=== PATIENT | female | born 1930 | race Caucasian/White ===

== ENCOUNTER 2016-04-12 12:02 | Observation (INO) | payer OTHER ==
[2016-04-12 12:08] VITALS: BMI 28.3
[2016-04-12] MEDS ORDERED: MAG HYDROX/AL HYDROX/SIMETH 355 ML ORAL.SUSP PO ONE (12:34)
--- NOTE | 2016-04-12 12:34 | PDOC ---
History of Present Illness - General Chief Complaint: Pain Stated Complaint: CHEST PAIN, COUGH Time Seen by Provider: 04/12/16 12:18 History Source: Patient Exam Limitations: Language Barrier (japanese) - History of Present Illness Initial Comments: 04/12/16 12:44 history taken in japanese with assistance of family member who is paddy 85y F hx of 'leaky valve, presents with cough x 2 days associated with nasal congestion, as well as pain in her chest when she coughs that is burning. Pt endorses mild sob. The pt states she feels congested, but cough is mostly dry but has occsaional whitihs sputum. there is no hemoptysis, leg pain (has limited leg swelling which is chronic), cp on exertion. Pt also endorses a mild right sided headache when she coughs. No fever/chills. No recent travel, or known sick contacts Past History - Past Medical History Allergies/Adverse Reactions: Allergies Allergy/AdvReac Type Severity Reaction Status Date / Time No Known Allergies Allergy Verified 04/12/16 12:08 Home Medications: Ambulatory Orders Aspirin 81 mg PO DAILY #0 tab.chew 07/21/13 Cetirizine HCl [Zyrtec -] 10 mg PO DAILY 07/14/14 Furosemide 20 mg PO DAILY 11/07/14 Polyethylene Glycol [Polyox Wsr-301] 1 gm MC DAILY 12/29/14 Buspirone HCl [Buspar -] 5 mg PO BID 02/27/16 Cholecalciferol (Vitamin D3) [Vitamin D3] 5,000 unit PO WEEKLY 02/27/16 Midodrine HCl 7.5 mg PO TID 02/27/16 Ranitidine HCl [Zantac] 150 mg PO DAILY 02/27/16 Oseltamivir Phosphate [Tamiflu -] 75 mg PO BID #10 capsule 04/12/16 Anemia: No Asthma: No Cancer: No Cardiac Disorders: Yes (leaking valve) CVA: No COPD: No CHF: No Dementia: No Diabetes: No GI Disorders: Yes (DIVERTICULITIS) Disorders: No HTN: No Hypercholesterolemia: No Liver Disease: No Suicide Attempt (Hx): No Seizures: No Thyroid Disease: No - Surgical History Abdominal Surgery: Yes Appendectomy: No Cardiac Surgery: No Cholecystectomy: No Lung Surgery: No Neurologic Surgery: No Orthopedic Surgery: No - Immunization History Td Vaccination: Yes TDAP Vaccination: Yes Immunization Up to Date: Yes - Psycho/Social/Smoking Cessation Hx Anxiety: No Suicidal Ideation: No Smoking Status: No Smoking History: Never smoked Have you smoked in the past 12 months: No Number of Cigarettes Smoked Daily: 0 Information on smoking cessation initiated: No Hx Alcohol Use: No Drug/Substance Use Hx: No Substance Use Type: None Hx Substance Use Treatment: No Review of Systems - Review of Systems Able to Perform ROS?: Yes Comments:: 04/12/16 12:49 Constitutional - no reported Fever, Chills, weakness, HEENT: no reported vision changes, sore throat Respiratory: + cough, sob, no reported hemoptysis Cardiac: +chest pain no reported , palpitations, light headedness, leg swelling Abd/GI: no reported abd pain, nausea, vomiting, blood per rectum, melena, diarrhea : no reported dysuria, frequency, discharge Musculskelatal - no reported back pain, joint swelling skin - no reported bruising, erythema, rash neurological: no reported headache, numbness, focal weakness, tingling, ataxia, weakness hematologic: no reported anemia, easy bruising, easy bleeding *Physical Exam - Vital Signs Last Vital Signs Temp Pulse Resp BP Pulse Ox 98.4 F 83 18 139/68 96 04/12/16 12:04 04/12/16 12:04 04/12/16 12:04 04/12/16 12:04 04/12/16 12:04 - Physical Exam Comments: 04/12/16 12:50 GENERAL: The patient is awake, alert, and fully oriented, Nontoxic - in no acute distress. HEAD: Normocephalic, atraumatic. EYES: extraocular movements intact, sclera anicteric, conjunctiva clear. ENT: Normal voice, Moist mucous membranes. NECK: Normal range of motion, supple LUNGS: Breath sounds equal, clear to auscultation bilaterally. No wheezes, no rhonchi, no rales. HEART: Regular rate and rhythm, normal S1 and S2 without murmur, rub or gallop. ABDOMEN: Soft, nontender, normoactive bowel sounds. No guarding, no rebound. No CVA tenderness EXTREMITIES: +1 pitting edema b/l in lower sihns, no calf tenderness. NEUROLOGICAL: No facial assymetry, Normal speech, PSYCH: Normal mood, normal affect. SKIN: Warm, Dry, normal turgor, Heart Score/ECG Review - ECG Impressions Comment:: 04/12/16 13:33 Twelve-lead EKG was performed and reviewed by me. There is normal sinus rhythm with a normal rate. Rate of 84 PACs present The axis is normal. The intervals are normal. There artifacts present Nonspecific T-wave inversion in lead 3 ED Treatment Course - LABORATORY CBC & Chemistry Diagram: 04/12/16 12:45 04/12/16 12:45 - RADIOLOGY Radiology Studies Ordered: Category Date Time Status CHEST PA & LAT [RAD] Stat Radiology 04/12/16 12:33 Ordered Medical Decision Making - Medical Decision Making 04/12/16 12:51 Suspect possible influenza versus viral syndrome Will obtain chest x-ray, influenza, blood work Also consider possible heart failure as the patient does have a history of valve problems 04/12/16 14:32 The patient's blood work was reviewed there is mild leukopenia. The patient's chest x-ray does not really feel anything acute Influenza positive We'll discharge the patient with a course of Tamiflu. We'll have the patient follow up with her primary care doctor. 04/12/16 14:[address] whyte would prefer to keep the pt in the hospital for observtion stable for med surg Case discussed in detail with admitting physician including history, physical exam and ancillary studies. Admitting physician has assumed care for the patient, will follow all pending diagnostics and will complete the evaluation and treatment. *DC/Admit/Observation/Transfer Diagnosis at time of Disposition: Influenza A - Discharge Dispostion Condition at time of disposition: Stable Admit: Yes - Prescriptions Prescriptions: Oseltamivir Phosphate [Tamiflu -] 75 mg PO BID #10 capsule - Referrals Referrals: Maryjane Whyte MD [Primary Care Provider] - - Patient Instructions Printed Discharge Instructions: DI for Influenza -- Adult Additional Instructions: Vuelva al departamento de emergencia inmediatamente con CUALQUIER nuevo, persistente o empeorando los sntomas incluyendo cualquier dificultad para respirar, fiebres altas, dolor a la hora de acostarse o cualquier otra preocupacin. [place] el Tamiflu segn las indicaciones. Noam Tylenol o Motrin por cualquier fiebre o jayson corporales. Usted DEBE llamar y seguir con harrell doctor maana para la evaluacin adicional de jagruti sntomas. Los resultados fueron discutidos con usted. Por favor, asegrese de que harrell mdico revise los resultados de harrell evaluacin de emergencia. Return to the emergency department immediately with ANY new, persistent or worsening symptoms including any difficulty breathing, high fevers, pain in at bedtime or any other concerns. Take the Tamiflu as directed. Take Tylenol or Motrin for any fever or body aches. You MUST call and follow up with your doctor tomorrow for further evaluation of your symptoms. Results were discussed with you. Please make sure your doctor reviews the results of your emergency evaluation. Print Language: GREEN[place]IC
[2016-04-12] MEDS ORDERED: ACETAMINOPHEN 325 MG TABLET (FP) PO ONE (12:48)
[2016-04-12] MEDS ORDERED: MAG HYDROX/AL HYDROX/SIMETH 30 ML UNIT-DOSE CUP ONE (12:51)
[2016-04-12 13:12] LABS: BASOPHIL 0.5 % (0-2.0); EOSINOPHIL 0.4 % (0-4.5); MCH 31.9 pg (25.7-33.7); MCHC 33.8 g/dl (32.0-36.0); MEAN CELL VOLUME 94.5 fl (80-96); MEAN PLT VOLUME 8.4 fl (7.5-11.1); NEUTROPHILS 50.7 % (42.8-82.8); PLATELET COUNT 178 K/MM3 (134-434); RDW 14.6 % (11.6-15.6); WHITE BLOOD COUNT 3.6 K/mm3 (4.0-10.0)
[2016-04-12] MEDS ORDERED: ACETAMINOPHEN 325 MG TABLET (FP) ONE (13:27)
[2016-04-12 13:41] LABS: ALBUMIN 3.2 g/dl (3.4-5.0); ANION GAP 9 (8-16); CALCIUM 8.6 mg/dL (8.5-10.1); CO2 27 mmol/L (21-32); CREATININE 0.9 mg/dL (0.55-1.02); GLUCOSE,RANDOM 134 mg/dL (74-106); SGOT/AST 30 U/L (15-37); SGPT/ALT 29 U/L (12-78)
[2016-04-12 13:44] LABS: ALK PHOS 55 U/L (45-117); BILIRUBIN,TOTAL 0.3 mg/dL (0.2-1.0); TOT PROT 6.7 g/dl (6.4-8.2); TROPONIN I < 0.02 ng/ml (0.00-0.05)
[2016-04-12] MEDS ORDERED: ALBUTEROL SO4 2.5/IPRATROPIUM 0.5 INH SOL 3 ML VIAL.NEB. NEB PRN (14:49)
[2016-04-12] MEDS ORDERED: methylPREDNISolone NA SUCC 40 MG/1 ML VIAL ONE (15:44)
[2016-04-12] MEDS ORDERED: OSELTAMIVIR PHOSPHATE 75 MG CAPSULE ONE ×2 (15:45→22:00)
[2016-04-12] MEDS: methylPREDNISolone NA SUCC 40 MG/1 ML VIAL IVPB SCH ×2 (15:52→19:03)
[2016-04-12] MEDS: OSELTAMIVIR PHOSPHATE 75 MG CAPSULE PO SCH ×2 (15:52→22:10)
--- NOTE | 2016-04-12 17:47 | HP ---
Admitting History and Physical - Primary Care Physician PCP: Maryjane Hennessy - Admission Chief Complaint: cough/wheezing/fever History of Present Illness: 85y F hx of mitral maribell prolapse,anxiety disorder, htn, presents with cough x 2 days associated with nasal congestion, as well as pain in her chest when she coughs that is burning. Pt endorses mild sob. The pt states she feels congested, but cough is mostly dry but has occsaional whitihs sputum. there is no hemoptysis, leg pain (has limited leg swelling which is chronic), cp on exertion. Pt also endorses a mild right sided headache when she coughs. No fever/chills. No recent travel, or known sick contacts History Source: Patient, Family Member - Past Medical History Cardiovascular: Yes: CAD, Mitral Insufficiency (recent evaluation) Psych: Yes: Anxiety - Past Surgical History Past Surgical History: Yes: None - Smoking History Smoking history: Never smoked Have you smoked in the past 12 months: No Aproximately how many cigarettes per day: 0 - Alcohol/Substance Use Hx Alcohol Use: No History of Substance Use: reports: None - Social History ADL: Family Assistance History of Recent Travel: No Home Medications - Allergies Allergies/Adverse Reactions: Allergies Allergy/AdvReac Type Severity Reaction Status Date / Time No Known Allergies Allergy Verified 04/12/16 12:08 - Home Medications Home Medications: Ambulatory Orders Aspirin 81 mg PO DAILY #0 tab.chew 07/21/13 Cetirizine HCl [Zyrtec -] 10 mg PO DAILY 07/14/14 Furosemide 20 mg PO DAILY 11/07/14 Polyethylene Glycol [Polyox Wsr-301] 1 gm MC DAILY 12/29/14 Buspirone HCl [Buspar -] 5 mg PO BID 02/27/16 Cholecalciferol (Vitamin D3) [Vitamin D3] 5,000 unit PO WEEKLY 02/27/16 Midodrine HCl 7.5 mg PO TID 02/27/16 Ranitidine HCl [Zantac] 150 mg PO DAILY 02/27/16 Oseltamivir Phosphate [Tamiflu -] 75 mg PO BID #10 capsule 04/12/16 Family Disease History - Family Disease History Family Disease History: CA: Brother Review of Systems Findings/Remarks: coughing, dyspnea - Review of Systems Constitutional: reports: Weakness Eyes: reports: No Symptoms HENT: reports: No Symptoms Neck: reports: No Symptoms Cardiovascular: reports: Shortness of Breath Respiratory: reports: Cough, Wheezing Gastrointestinal: reports: No Symptoms Genitourinary: reports: No Symptoms Neurological: reports: Pre-Existing Deficit, Unsteady Gait Psychiatric: reports: Anxiety Physical Examination Vital Signs: Vital Signs Temperature 97.3 F L 04/12/16 16:51 Pulse Rate 62 04/12/16 16:51 Respiratory Rate 18 04/12/16 16:51 Blood Pressure 140/73 04/12/16 16:51 O2 Sat by Pulse Oximetry (%) 96 04/12/16 16:51 Constitutional: Yes: Mild Distress Eyes: Yes: WNL HENT: Yes: WNL Neck: Yes: WNL Cardiovascular: Yes: WNL Respiratory: Yes: Cough, On Nasal O2, Wheezes Gastrointestinal: Yes: WNL Musculoskeletal: Yes: Joint Stiffness, Muscle Pain Extremities: Yes: WNL Edema: No Peripheral Pulses WNL: Yes Integumentary: Yes: WNL Wound/Incision: Yes: Clean/Dry Neurological: Yes: Pre-Existing Deficit, Unsteady Gait, Weakness ...Motor Strength: LLE, RLE Psychiatric: Yes: Other Imaging - Results Chest X-ray: Report Reviewed Problem List - Problems (1) Influenza A Code(s): J10.1 - FLU DUE TO OTH IDENT INFLUENZA VIRUS W OTH RESP MANIFEST (2) Mitral valve disease Code(s): I05.9 - RHEUMATIC MITRAL VALVE DISEASE, UNSPECIFIED Assessment/Plan ISOLATION ROOM OBSERVATION STATUS 02 SUPPORT NEBS SOLUMEDROL IV TAMIFLU ID AND PULM EVAL
[2016-04-12] MEDS: MIDODRINE HCL 2.5 MG TABLET PO SCH (20:55)
[2016-04-12] MEDS ORDERED: RANITIDINE HCL 150 MG TABLET (FP) ONE (22:00)
[2016-04-12] MEDS: RANITIDINE HCL 150 MG TABLET (FP) PO SCH (22:10)
[2016-04-12] MEDS: busPIRone HCL 5 MG TABLET PO SCH (22:10)
[2016-04-13] MEDS: methylPREDNISolone NA SUCC 40 MG/1 ML VIAL IVPB SCH ×3 (02:19→18:09)
--- NOTE | 2016-04-13 10:02 | CONSULT ---
Consult Consult Specialty:: PULMONARY Referred by:: Dr. Hennessy Reason for Consultation:: shortness of breath - History of Present Illness Chief Complaint: cough History of Present Illness: 85yo female with h/o HTN, CAD, mitral valve prolapse, anxiety who presents with cough x 2 days. States that her cough is productive of white sputum and with occasional wheezing. No history of asthma or COPD. She is a never smoker. Denies fevers or chills but some dyspnea with exertion. No chest pain. No leg swelling. No known sick contacts. - History Source History Provided By: Patient, Medical Record Limitations to Obtaining History: Language Barrier - Past Medical History Cardio/Vascular: Yes: CAD, Mitral Insufficiency (recent evaluation) Psych: Yes: Anxiety - Past Surgical History Past Surgical History: Yes: None - Alcohol/Substance Use Hx Alcohol Use: No History of Substance Use: reports: None - Smoking History Smoking history: Never smoked Have you smoked in the past 12 months: No Aproximately how many cigarettes per day: 0 - Social History ADL: Family Assistance History of Recent Travel: No Home Medications - Allergies Allergies/Adverse Reactions: Allergies Allergy/AdvReac Type Severity Reaction Status Date / Time No Known Allergies Allergy Verified 04/12/16 12:08 - Home Medications Home Medications: Ambulatory Orders Aspirin 81 mg PO DAILY #0 tab.chew 07/21/13 Cetirizine HCl [Zyrtec -] 10 mg PO DAILY 07/14/14 Furosemide 20 mg PO DAILY 11/07/14 Polyethylene Glycol [Polyox Wsr-301] 1 gm MC DAILY 12/29/14 Buspirone HCl [Buspar -] 5 mg PO BID 02/27/16 Cholecalciferol (Vitamin D3) [Vitamin D3] 5,000 unit PO WEEKLY 02/27/16 Midodrine HCl 7.5 mg PO TID 02/27/16 Ranitidine HCl [Zantac] 150 mg PO DAILY 02/27/16 Oseltamivir Phosphate [Tamiflu -] 75 mg PO BID #10 capsule 04/12/16 Family Disease History - Family Disease History Family Disease History: CA: Brother Review of Systems - Review of Systems Constitutional: reports: Weakness. denies: Chills, Fever Eyes: denies: Recent Change in Vision HENT: denies: Throat Pain, Toothache Neck: denies: Swollen Glands, Tenderness Cardiovascular: reports: Shortness of Breath. denies: Chest Pain, Edema, Palpitations Respiratory: reports: Cough, SOB on Exertion, Wheezing. denies: Hemoptysis Gastrointestinal: denies: Abdominal Pain, Nausea, Vomiting Genitourinary: denies: Dysuria, Hematuria Neurological: denies: Dizziness, Headache Physical Exam Vital Signs: Vital Signs Temperature 98.5 F 04/13/16 03:56 Pulse Rate 57 L 04/13/16 03:56 Respiratory Rate 16 04/13/16 07:00 Blood Pressure 130/73 04/13/16 03:56 O2 Sat by Pulse Oximetry (%) 97 04/13/16 07:00 Constitutional: Yes: Calm Eyes: Yes: Conjunctiva Clear, EOM Intact HENT: Yes: Atraumatic, Normocephalic Neck: Yes: Supple, Trachea Midline Cardiovascular: Yes: Regular Rate and Rhythm Respiratory: Yes: Regular, Rhonchi (scattered). No: Rales, Wheezes Gastrointestinal: Yes: Normal Bowel Sounds, Soft. No: Tenderness Edema: No Neurological: Yes: Alert, Oriented Imaging - Results Chest X-ray: Report Reviewed, Image Reviewed (no infiltrates) Problem List - Problems (1) Influenza A Code(s): J10.1 - FLU DUE TO OTH IDENT INFLUENZA VIRUS W OTH RESP MANIFEST (2) Acute bronchospasm Code(s): J98.01 - ACUTE BRONCHOSPASM Assessment/Plan Influenza A Mild Acute Bronchospasm Mitral Valve Prolapse - tamiflu - agree with short course of steroids, likely can change to PO in AM - inhaled bronchodilators - O2 as needed - DVT prophylaxis Drew Carroll MD
[2016-04-13] MEDS ORDERED: ALBUTEROL SO4 0.083% IH SOL 2.5 MG/3 ML VIAL.NEB. NEB PRN (10:17)
[2016-04-13] MEDS ORDERED: PT OWN MED DRAWER 7, Y5N ONE (10:45)
[2016-04-13] MEDS: MIDODRINE HCL 2.5 MG TABLET PO SCH ×2 (10:47→18:09)
[2016-04-13] MEDS: RANITIDINE HCL 150 MG TABLET (FP) PO SCH ×2 (10:47→22:20)
[2016-04-13] MEDS: FUROSEMIDE 20 MG TABLET (FP) PO SCH (10:47)
[2016-04-13] MEDS: busPIRone HCL 5 MG TABLET PO SCH ×2 (10:47→22:19)
[2016-04-13] MEDS: OSELTAMIVIR PHOSPHATE 75 MG CAPSULE PO SCH ×2 (10:47→22:19)
--- NOTE | 2016-04-13 10:49 | PN ---
Progress Note (short form) - Note Progress Note: ID Consult dictated Acute influenza A Leukopenia secondary to viral infection Complete 5d course of Tamiflu Droplet precautions
--- NOTE | 2016-04-13 11:10 | PN ---
Progress Note, Physician Chief Complaint: AMBULATING FEELS BETTER - Current Medication List Current Medications: Active Medications Albuterol Sulfate (Ventolin 0.083% Nebulizer Soln -) 1 amp NEB Q4H PRN PRN Reason: SHORT OF BREATH/WHEEZING Albuterol/Ipratropium (Duoneb -) 1 amp NEB QIDR FANI Buspirone HCl (Buspar -) [address] [facility] Last Admin: 04/13/16 10:47 Dose: 5 mg Furosemide (Lasix -) [address] [facility] Last Admin: 04/13/16 10:47 Dose: 20 mg Methylprednisolone Sodium Succinate (Solu-Medrol -) 40 mg IVPB Q8H-IV [facility] Last Admin: 04/13/16 10:48 Dose: 40 mg Midodrine (Proamatine -) 2.5 mg PO BID-MID [facility] Last Admin: 04/13/16 10:47 Dose: 2.5 mg Oseltamivir Phosphate (Tamiflu -) [address] [facility] Last Admin: 04/13/16 10:47 Dose: 75 mg Ranitidine HCl (Zantac -) [address] [facility] Last Admin: 04/13/16 10:47 Dose: 150 mg - Objective Vital Signs: Vital Signs Temperature 98.2 F 04/13/16 09:30 Pulse Rate 70 04/13/16 09:30 Respiratory Rate 20 04/13/16 09:30 Blood Pressure 125/61 04/13/16 09:30 O2 Sat by Pulse Oximetry (%) 94 L 04/13/16 09:30 Constitutional: Yes: Calm HENT: Yes: Normocephalic Cardiovascular: Yes: Regular Rate and Rhythm, S1, S2 Respiratory: Yes: Cough, Diminished Gastrointestinal: Yes: Normal Bowel Sounds, Soft Edema: No Problem List - Problems (1) Influenza A Code(s): J10.1 - FLU DUE TO OTH IDENT INFLUENZA VIRUS W OTH RESP MANIFEST (2) Mitral valve disease Code(s): I05.9 - RHEUMATIC MITRAL VALVE DISEASE, UNSPECIFIED Assessment/Plan ISOLATION ROOM 02 SUPPORT NEBS SOLUMEDROL IV -> FOR PO 04/14 TAMIFLU -> x 5 DAYS ID AND PULM EVALS APPRECIATED DISCHARGE PLANNING 04/14 PASTOR FRANCISCO
[2016-04-13] MEDS: ALBUTEROL SO4 2.5/IPRATROPIUM 0.5 INH SOL 3 ML VIAL.NEB. NEB SCH ×3 (12:40→18:30)
[2016-04-13] MEDS ORDERED: ALBUTEROL SO4 2.5/IPRATROPIUM 0.5 INH SOL 3 ML VIAL.NEB. NEB SCH (14:00)
--- NOTE | 2016-04-13 17:50 | CONS ---
DATE OF CONSULTATION: DATE OF DICTATION: 04/13/2016 INFECTIOUS DISEASE CONSULTATION HISTORY OF PRESENT ILLNESS: The patient is an 85-year-old female evaluated for acute influenza A. She was admitted to the hospital on April 12, 2016, with a 2-day history of worsening cough productive of whitish sputum, congestion, mild dyspnea, headache. She was found to have a positive rapid influenza A swab. Patient denies any chest pain, purulent sputum production or hemoptysis. She has no known ill contacts. She reports receiving influenza vaccine this year, denies any associated fever or chills. PAST MEDICAL HISTORY: Positive for hypertension, coronary artery disease, mitral valve prolapse. ALLERGIES: No known allergies. MEDICATION: Aspirin, Zyrtec, Lasix, Buspar, Zantac, Tamiflu. SOCIAL HISTORY: She lives in the community. She is a nonsmoker, nondrinker. SYSTEMS REVIEW: Neurologic: No loss of consciousness, seizure activity, or focal weakness. Cardiac: Negative chest pain or palpitations. Respiratory: As per HPI. Gastrointestinal: Negative vomiting or diarrhea. Genitourinary: Negative for urinary tract infection. LABORATORY DATA: White count 3.6, 57 neutrophils, 34 lymphocytes, 13 monocytes, creatinine 0.9, liver enzymes normal. Influenza A rapid swab positive. PHYSICAL EXAMINATION: General: She is awake and alert. She is out of bed to chair. She is in no acute distress. Vital signs: Temperature 98.2, blood pressure 125/61, pulse 70 regular, respirations 20 per minute. HEENT: Sclerae anicteric. Cardiovascular: Heart sounds S1, S2. Respiratory: Lungs clear. Abdomen: Soft. No tenderness elicited. No mass, rebound, or rigidity. Extremities: 1+ edema. IMPRESSION: 1. Acute influenza A. 2. Leukopenia secondary to viral infection. Continue Tamiflu 75 mg p.o. b.i.d., complete 5-day course. precautions. Thank you for the kind referral. GRACE CHAO M.D. [id number]
[2016-04-14] MEDS: ALBUTEROL SO4 2.5/IPRATROPIUM 0.5 INH SOL 3 ML VIAL.NEB. NEB SCH ×3 (00:40→11:05)
[2016-04-14] MEDS: methylPREDNISolone NA SUCC 40 MG/1 ML VIAL IVPB SCH (01:30)
[2016-04-14 07:31] LABS: BASOPHIL 0.1 % (0-2.0); MCHC 34.3 g/dl (32.0-36.0); MEAN CELL VOLUME 93.2 fl (80-96); MEAN PLT VOLUME 8.6 fl (7.5-11.1); NEUTROPHILS 74.1 % (42.8-82.8); PLATELET COUNT 188 K/MM3 (134-434); RDW 14.4 % (11.6-15.6); WHITE BLOOD COUNT 5.1 K/mm3 (4.0-10.0)
[2016-04-14 08:26] LABS: TROPONIN I < 0.02 ng/ml (0.00-0.05)
[2016-04-14 08:31] LABS: ALBUMIN 3.2 g/dl (3.4-5.0); ALK PHOS 51 U/L (45-117); ANION GAP 10 (8-16); BILIRUBIN,TOTAL 0.3 mg/dL (0.2-1.0); CALCIUM 8.8 mg/dL (8.5-10.1); CO2 27 mmol/L (21-32); CREATININE 0.7 mg/dL (0.55-1.02); GLUCOSE,RANDOM 163 mg/dL (74-106); SGOT/AST 29 U/L (15-37); SGPT/ALT 33 U/L (12-78); TOT PROT 6.6 g/dl (6.4-8.2)
--- NOTE | 2016-04-14 09:56 | PN ---
Progress Note (short form) - Note Progress Note: PULMONARY Feels better. Coughing less. No fevers or chills. Last Vital Signs Temp Pulse Resp BP Pulse Ox 98.1 F 55 L 20 138/80 94 L 04/14/16 07:06 04/14/16 07:06 04/14/16 07:06 04/14/16 07:06 04/14/16 06:00 Gen: NAD at rest Heart: RRR Lung: no wheezes or rhonchi appreciated Abd: soft, nontender Ext: no edema CBC, BMP 04/14/16 06:00 04/14/16 06:00 Active Medications Albuterol Sulfate (Ventolin 0.083% Nebulizer Soln -) 1 amp NEB Q4H PRN PRN Reason: SHORT OF BREATH/WHEEZING Albuterol/Ipratropium (Duoneb -) 1 amp NEB QIDR [facility] Last Admin: 04/14/16 05:29 Dose: 1 amp Buspirone HCl (Buspar -) 5 mg PO BID [facility] Last Admin: 04/13/16 22:19 Dose: 5 mg Furosemide (Lasix -) 20 mg PO DAILY [facility] Last Admin: 04/13/16 10:47 Dose: 20 mg Methylprednisolone Sodium Succinate (Solu-Medrol -) 40 mg IVPB Q8H-IV [facility] Last Admin: 04/14/16 01:30 Dose: 40 mg Midodrine (Proamatine -) 2.5 mg PO BID-MID [facility] Last Admin: 04/13/16 18:09 Dose: 2.5 mg Oseltamivir Phosphate (Tamiflu -) 75 mg PO BID [facility] Last Admin: 04/13/16 22:19 Dose: 75 mg Ranitidine HCl (Zantac -) 150 mg PO BID [facility] Last Admin: 04/13/16 22:20 Dose: 150 mg A/P Influenza A Mild Acute Bronchospasm Mitral Valve Prolapse - complete 5 day course of tamiflu - will change steroids to PO, can complete 5 day course of prednisone 5 days total - inhaled bronchodilators - O2 as needed - DVT prophylaxis - can discharge home from pulmonary standpoint Problem List - Problems (1) Influenza A Code(s): J10.1 - FLU DUE TO OTH IDENT INFLUENZA VIRUS W OTH RESP MANIFEST (2) Acute bronchospasm Code(s): J98.01 - ACUTE BRONCHOSPASM
[2016-04-14] MEDS ORDERED: predniSONE 20 MG TABLET (UD) PO SCH (10:00)
[2016-04-14] MEDS ORDERED: PT OWN MED DRAWER 7, Y5N ONE (10:44)
[2016-04-14] MEDS: busPIRone HCL 5 MG TABLET PO SCH (10:45)
[2016-04-14] MEDS: OSELTAMIVIR PHOSPHATE 75 MG CAPSULE PO SCH (10:45)
[2016-04-14] MEDS: RANITIDINE HCL 150 MG TABLET (FP) PO SCH (10:45)
[2016-04-14] MEDS: MIDODRINE HCL 2.5 MG TABLET PO SCH (10:46)
[2016-04-14] MEDS: FUROSEMIDE 20 MG TABLET (FP) PO SCH (10:46)
--- NOTE | 2016-04-14 14:20 | DS ---
Physical Examination Vital Signs: Vital Signs Temperature 98.1 F 04/14/16 07:06 Pulse Rate 55 L 04/14/16 07:06 Respiratory Rate 20 04/14/16 07:06 Blood Pressure 138/80 04/14/16 07:06 O2 Sat by Pulse Oximetry (%) 94 L 04/14/16 06:00 Constitutional: Yes: No Distress Eyes: Yes: WNL HENT: Yes: WNL Neck: Yes: WNL Cardiovascular: Yes: WNL Respiratory: Yes: WNL Gastrointestinal: Yes: WNL Musculoskeletal: Yes: Muscle Weakness Extremities: Yes: WNL Edema: No Peripheral Pulses WNL: Yes Integumentary: Yes: WNL Wound/Incision: Yes: Clean/Dry Neurological: Yes: Pre-Existing Deficit, Unsteady Gait ...Motor Strength: LLE, RLE Psychiatric: Yes: Other Labs: CBC, BMP 04/14/16 06:00 04/14/16 06:00 Discharge Summary Reason For Visit: INFLUENZA A Current Active Problems Acute bronchospasm (Acute) Influenza A (Acute) Procedures: Principal: cxr Other Procedures: labs/cx Hospital Course: admitted under observation, acute influenza treated and may go home and complete tamiflu, f/u with pmd 1-2 weeks Condition: Improved - Instructions Diet, Activity, Other Instructions: Vuelva al departamento de emergencia inmediatamente con CUALQUIER nuevo, persistente o empeorando los sntomas incluyendo cualquier dificultad para respirar, fiebres altas, dolor a la hora de acostarse o cualquier otra preocupacin. [place] el Tamiflu segn las indicaciones. Noam Tylenol o Motrin por cualquier fiebre o jayson corporales. Usted DEBE llamar y seguir con harrell doctor maana para la evaluacin adicional de jagruti sntomas. Los resultados fueron discutidos con usted. Por favor, asegrese de que harrell mdico revise los resultados de harrell evaluacin de emergencia. Return to the emergency department immediately with ANY new, persistent or worsening symptoms including any difficulty breathing, high fevers, pain in at bedtime or any other concerns. Take the Tamiflu as directed. Take Tylenol or Motrin for any fever or body aches. You MUST call and follow up with your doctor tomorrow for further evaluation of your symptoms. Results were discussed with you. Please make sure your doctor reviews the results of your emergency evaluation. Referrals: Maryjane Hennessy MD [Primary Care Provider] - Disposition: HOME - Home Medications Comprehensive Discharge Medication List: Ambulatory Orders Aspirin 81 mg PO DAILY #0 tab.chew 07/21/13 Cetirizine HCl [Zyrtec -] 10 mg PO DAILY 07/14/14 Furosemide 20 mg PO DAILY 11/07/14 Polyethylene Glycol [Polyox Wsr-301] 1 gm MC DAILY 12/29/14 Buspirone HCl [Buspar -] 5 mg PO BID 02/27/16 Cholecalciferol (Vitamin D3) [Vitamin D3] 5,000 unit PO WEEKLY 02/27/16 Midodrine HCl 7.5 mg PO TID 02/27/16 Ranitidine HCl [Zantac] 150 mg PO DAILY 02/27/16 Oseltamivir Phosphate [Tamiflu -] 75 mg PO BID #10 capsule 04/12/16
[2016-04-14 14:40] VITALS: TEMP 98.3
[2016-04-14 14:41] VITALS: BP 138/80; PULSE 55
== END 2016-04-14 15:05 | disposition home or self-care (01) ==
LOC: JER 12:02 → JERBED 15:00 → J8W 04-13 01:32
PROVIDERS: ADMIT Family Medicine; ATTEND Family Medicine
DX: J10.1 Influenza due to other identified influenza virus with other respiratory manifestations (principal); I10 Essential (primary) hypertension; I34.1 Nonrheumatic mitral (valve) prolapse; F41.8 Other specified anxiety disorders; I25.10 Atherosclerotic heart disease of native coronary artery without angina pectoris; R05 Cough; J98.01 Acute bronchospasm; D72.818 Other decreased white blood cell count
CPT/HCPCS: 36415; 71020-TC; 80053; 82550; 84484; 85025; 87804; 94640; 97116-GP; 97161-GP; 99285-25; G0378

== ENCOUNTER 2017-10-20 15:54 | Observation (INO) | payer OTHER ==
--- NOTE | 2017-10-20 16:04 | PDOC ---
Rapid Medical Evaluation Chief Complaint: Chest Pain Time Seen by Provider: 10/20/17 16:01 Medical Evaluation: Allergies Allergy/AdvReac Type Severity Reaction Status Date / Time No Known Allergies Allergy Verified 06/05/17 12:52 I have performed a brief in-person evaluation of this patient. The patient presents with a chief complaint of: CP x 3 days with SOB Pertinent physical exam findings: none I have ordered the following: labs, EKG, CXR The patient will proceed to the ED for further evaluation. Discharge Disposition - Diagnosis Chest pain, Shortness of breath - Referrals - Patient Instructions - Post Discharge Activity
[2017-10-20 16:51] LABS: BASO % 0.9 % (0-2.0); EOS % 1.3 % (0-4.5); HEMATOCRIT 38.9 % (32.4-45.2); HEMOGLOBIN 13.2 GM/dL (10.7-15.3); LYMPH % 35.9 % (8-40); MCH 32.3 pg (25.7-33.7); MEAN CELL VOLUME 95.2 fl (80-96); MEAN PLT VOLUME 7.6 fl (7.5-11.1); NEUT % 51.9 % (42.8-82.8); PLATELET COUNT 237 K/MM3 (134-434); RBC 4.09 M/mm3 (3.60-5.2); RDW 14.1 % (11.6-15.6); WHITE BLOOD COUNT 6.2 K/mm3 (4.0-10.0)
[2017-10-20 17:33] LABS: ALBUMIN 3.6 g/dl (3.4-5.0); ANION GAP 7 (8-16); BLOOD UREA NITROGEN 17 mg/dL (7-18); CALCIUM 8.8 mg/dL (8.5-10.1); CHLORIDE 99 mmol/L (98-107); CO2 28 mmol/L (21-32); CREATININE 0.8 mg/dL (0.55-1.02); GLUCOSE,RANDOM 97 mg/dL (74-106); POTASSIUM 4.3 mmol/L (3.5-5.1); SGOT/AST 17 U/L (15-37); SGPT/ALT 20 U/L (12-78); SODIUM 134 mmol/L (136-145)
[2017-10-20 17:37] LABS: ALK PHOS 55 U/L (45-117); BILIRUBIN,TOTAL 0.3 mg/dL (0.2-1.0); N-TERMINAL BNP 511.22 pg/ml (5-450)
--- NOTE | 2017-10-20 18:31 | PDOC ---
History of Present Illness - General History Source: Patient Exam Limitations: No Limitations - History of Present Illness Initial Comments: 10/20/17 18:26 86 yo h/o HTN, MVP anxiety here with /co chest pain. pressure like, no radiation. intermittent last few days. when occurs 10/29. did take motrin with some relief. does get associated nausea and sob. no vomiting. no numnbess. no leg swelling.. no h/o pe or dvt. states she may havehad a stress test this year with dr. latham, cher of date. family h/o cad brother with mi who is younger than her. no tobacco use. <Molly Garner - Last Filed: 10/20/17 18:34> <Chanelle Dennsion - Last Filed: 10/20/17 18:37> - General Chief Complaint: Chest Pain Stated Complaint: CHEST PAIN Time Seen by Provider: 10/20/17 16:01 Past History - Past Medical History Anemia: No Asthma: No Cancer: No Cardiac Disorders: Yes CVA: No COPD: No CHF: No Dementia: No Diabetes: No GI Disorders: Yes (DIVERTICULITIS) Disorders: No HTN: No Hypercholesterolemia: No Liver Disease: No Psychiatric Problems: Yes (anxiety?) Seizures: No Thyroid Disease: No - Surgical History Abdominal Surgery: Yes Appendectomy: No Cardiac Surgery: No Cholecystectomy: No Lung Surgery: No Neurologic Surgery: No Orthopedic Surgery: No - Immunization History Td Vaccination: Yes TDAP Vaccination: Yes Immunization Up to Date: Yes - Suicide/Smoking/Psychosocial Hx Smoking Status: No Smoking History: Never smoked Have you smoked in the past 12 months: No Number of Cigarettes Smoked Daily: 0 Hx Alcohol Use: No Drug/Substance Use Hx: No Substance Use Type: None Hx Substance Use Treatment: No <Molly Garner - Last Filed: 10/20/17 18:34> <Chanelle Dennison - Last Filed: 10/20/17 18:37> - Past Medical History Allergies/Adverse Reactions: Allergies Allergy/AdvReac Type Severity Reaction Status Date / Time No Known Allergies Allergy Verified 10/20/17 16:48 Home Medications: Ambulatory Orders Aspirin 81 mg PO DAILY #0 tab.chew 07/21/13 Cetirizine HCl [Zyrtec -] 10 mg PO DAILY 07/14/14 Polyethylene Glycol [Polyox Wsr-301] 1 gm MC DAILY 12/29/14 Buspirone HCl [Buspar -] 5 mg PO BID 02/27/16 Cholecalciferol (Vitamin D3) [Vitamin D3] 5,000 unit PO WEEKLY 02/27/16 Docusate Sodium [Colace] 100 mg PO DAILY 04/04/17 Furosemide 20 mg PO DAILY 04/04/17 Midodrine HCl 7.5 mg PO TID 04/04/17 Ranitidine HCl 150 mg PO DAILY 04/04/17 Review of Systems - Review of Systems Constitutional: No: Chills, Diaphoresis, Other HEENTM: No: Eye Pain Respiratory: Yes: Shortness of Breath. No: Cough, Orthopnea, Productive cough Cardiac (ROS): Yes: Chest Pain. No: Edema Neurological: No: Headache, Numbness, Paresthesia All Other Systems: Reviewed and Negative <Molly Garner - Last Filed: 10/20/17 18:34> *Physical Exam - Vital Signs Last Vital Signs Temp Pulse Resp BP Pulse Ox 98 F 68 20 143/64 98 10/20/17 16:00 10/20/17 16:00 10/20/17 16:00 10/20/17 16:00 10/20/17 17:13 - Physical Exam General Appearance: Yes: Appropriately Dressed HEENT: positive: Normal ENT Inspection Neck: positive: Trachea midline Respiratory/Chest: positive: Lungs Clear, Normal Breath Sounds Cardiovascular: positive: Regular Rhythm, Regular Rate, S1, S2 Gastrointestinal/Abdominal: positive: Normal Bowel Sounds, Tender (suprapubic ttp. no rebound no guarding. ) Rectal Exam: negative: heme negative stool, normal exam Musculoskeletal: positive: Normal Inspection. negative: CVA Tenderness, CVA Tenderness (R) Extremity: positive: Normal Capillary Refill, Normal Inspection Integumentary: positive: Normal Color, Dry, Warm Neurologic: positive: Fully Oriented, Alert, Normal Mood/Affect <Molly Garner - Last Filed: 10/20/17 18:34> - Vital Signs Last Vital Signs Temp Pulse Resp BP Pulse Ox 98 F 68 20 143/64 98 10/20/17 16:00 10/20/17 16:00 10/20/17 16:00 10/20/17 16:00 10/20/17 17:13 <Chanelle Dennison - Last Filed: 10/20/17 18:37> Heart Score/ECG Review #1 General ECG Interpretation: Sinus Rhythm, Normal Rate (76), Normal Intervals, No acute ischemic changes <Molly Garner - Last Filed: 10/20/17 18:34> ED Treatment Course - LABORATORY CBC & Chemistry Diagram: 10/20/17 16:41 10/20/17 16:41 - ADDITIONAL ORDERS Additional order review: Laboratory Results 10/20/17 16:41 Sodium 134 L Potassium 4.3 Chloride 99 Carbon Dioxide 28 Anion Gap 7 L BUN 17 Creatinine 0.8 Creat Clearance w eGFR > 60 Random Glucose 97 Calcium 8.8 Total Bilirubin 0.3 AST 17 ALT 20 Alkaline Phosphatase 55 Creatine Kinase 62 Troponin I < 0.02 B-Natriuretic Peptide 511.22 H Total Protein 7.0 Albumin 3.6 10/20/17 16:41 RBC 4.09 MCV 95.2 MCHC 34.0 RDW 14.1 MPV 7.6 Neutrophils % 51.9 D Lymphocytes % 35.9 D Monocytes % 10.0 Eosinophils % 1.3 D Basophils % 0.9 <Molly Garner - Last Filed: 10/20/17 18:34> - LABORATORY CBC & Chemistry Diagram: 10/20/17 16:41 10/20/17 16:41 - ADDITIONAL ORDERS Additional order review: Laboratory Results 10/20/17 16:41 Sodium 134 L Potassium 4.3 Chloride 99 Carbon Dioxide 28 Anion Gap 7 L BUN 17 Creatinine 0.8 Creat Clearance w eGFR > 60 Random Glucose 97 Calcium 8.8 Total Bilirubin 0.3 AST 17 ALT 20 Alkaline Phosphatase 55 Creatine Kinase 62 Troponin I < 0.02 B-Natriuretic Peptide 511.22 H Total Protein 7.0 Albumin 3.6 10/20/17 16:41 RBC 4.09 MCV 95.2 MCHC 34.0 RDW 14.1 MPV 7.6 Neutrophils % 51.9 D Lymphocytes % 35.9 D Monocytes % 10.0 Eosinophils % 1.3 D Basophils % 0.9 - RADIOLOGY Radiograph Interpretation: 10/20/17 18:33 Chest X-Ray was reviewed by Dr. Garner and over-read by Radiology. Report: A single view the chest reveals little change since 04/12/2016. Again there is a scoliosis with convexity to the right, prominent mediastinum and slight fullness of the right hilum. An acute chest process is not seen. Correlation recommended. <Chanelle Dennison - Last Filed: 10/20/17 18:37> Medical Decision Making - Medical Decision Making 10/20/17 18:30 86 yo F wtih /ho htn anxiety here with chest pain, differential includes angina , infection such as pnuemonia. suprapubic ttp will check urine r/o uti, plan likely observation on tele due to pt age, family h/o cad, and h/o htn. ekg unremarkable. <Molly Garner - Last Filed: 10/20/17 18:34> *DC/Admit/Observation/Transfer - Discharge Dispostion Decision to Admit order: Yes <Molly Garner - Last Filed: 10/20/17 18:34> - Attestations Scribe Attestion: 10/20/17 18:37 Documentation prepared by Chanelle Dennison, acting as medical record clerk for Molly Garner MD. <Chanelle Dennison - Last Filed: 10/20/17 18:37> Diagnosis at time of Disposition: Chest pain, Shortness of breath
[2017-10-20] MEDS ORDERED: ASPIRIN 81 MG CHEWABLE TABLETS PO ONE (18:32)
[2017-10-20] MEDS ORDERED: ASPIRIN 81 MG CHEWABLE TABLETS ONE (18:46)
--- NOTE | 2017-10-20 21:35 | HP ---
CHIEF COMPLAINT: chest pain PCP: Minoo, Cardio: Mis, GI: Candelario HISTORY OF PRESENT ILLNESS: This is an 86 year old female with a past medical history of HTN, MVP, anxiety, diverticulitis who presented to the ED with intermittent "light" chest pain for a couple of days but became worse today which prompted her daughter to take her to the ED. She also reports SOB today. Denies palpitations. Daughter reports pt chronically sleeps with head raised (she has an adjustable bed). ER course was notable for: (1) troponin <0.02 (2) ECG without acute changes (3) CXR without acute findings Recent Travel: pt denies PAST MEDICAL HISTORY: HTN, MVP, "leaky valves" as per daughter, anxiety, diverticulitis, chronic constipation PAST SURGICAL HISTORY: hysterectomy cataract surgery L ear SCC 2013 Social History: Smoking: pt denies Alcohol: pt denies Drugs: pt denies Family History: brother with CAD/[place] in his 70s, also s/p CVA sister with heart problems, alive in her 90s mother age 89, Alzheimers disease father in his 90s multiple relatives lived into their 90s/100s Allergies No Known Allergies Allergy (Verified 10/20/17 16:48) HOME MEDICATIONS: 3 Medication Instructions Recorded Aspirin 81 mg PO DAILY #0 tab.chew 07/21/13 Cetirizine HCl [Zyrtec -] 10 mg PO DAILY 07/14/14 Polyethylene Glycol [Polyox 1 gm MC DAILY 12/29/14 Wsr-301] Buspirone HCl [Buspar -] 5 mg PO BID 02/27/16 Cholecalciferol (Vitamin D3) 5,000 unit PO WEEKLY 02/27/16 [Vitamin D3] Docusate Sodium [Colace] 100 mg PO DAILY 04/04/17 Furosemide 20 mg PO DAILY 04/04/17 Midodrine HCl 7.5 mg PO TID 04/04/17 Ranitidine HCl 150 mg PO DAILY 04/04/17 REVIEW OF SYSTEMS CONSTITUTIONAL: Absent: fever, chills, diaphoresis, generalized weakness, malaise, loss of appetite, weight change HEENT: Absent: rhinorrhea, nasal congestion, throat pain, throat swelling, difficulty swallowing, mouth swelling, ear pain, eye pain, visual changes CARDIOVASCULAR: Present: chest pain Absent: syncope, palpitations, irregular heart rate, lightheadedness, peripheral edema RESPIRATORY: Present: shortness of breath Absent: cough, dyspnea with exertion, orthopnea, wheezing, stridor, hemoptysis GASTROINTESTINAL: Absent: abdominal pain, abdominal distension, nausea, vomiting, diarrhea, constipation, melena, hematochezia GENITOURINARY: Absent: dysuria, frequency, urgency, hesitancy, hematuria, flank pain, genital pain MUSCULOSKELETAL: Absent: myalgia, arthralgia, joint swelling, back pain, neck pain SKIN: Absent: rash, itching, pallor HEMATOLOGIC/IMMUNOLOGIC: Absent: easy bleeding, easy bruising, lymphadenopathy, frequent infections ENDOCRINE: Absent: unexplained weight gain, unexplained weight loss, heat intolerance, cold intolerance NEUROLOGIC: Absent: headache, focal weakness or paresthesias, dizziness, unsteady gait, seizure, mental status changes, bladder or bowel incontinence PSYCHIATRIC: Absent: anxiety, depression, suicidal or homicidal ideation, hallucinations. PHYSICAL EXAMINATION Vital Signs - 24 hr 3 10/20/17 10/20/17 16:00 17:13 Temperature 98 F Pulse Rate 68 Respiratory 20 Rate Blood Pressure 143/64 O2 Sat by Pulse 95 98 Oximetry (%) GENERAL: Awake, alert, and fully oriented, in no acute distress. HEAD: Normal with no signs of trauma. EYES: Pupils equal, round and reactive to light, extraocular movements intact, sclera anicteric, conjunctiva clear. No lid lag. EARS, NOSE, THROAT: Ears normal, nares patent, oropharynx clear without exudates. Moist mucous membranes. NECK: Normal range of motion, supple without lymphadenopathy, JVD, or masses. LUNGS: Breath sounds equal, clear to auscultation bilaterally. No wheezes, and no crackles. No accessory muscle use. HEART: Regular rate and rhythm, normal S1 and S2 without rub or gallop. + murmur ABDOMEN: Soft, nontender, not distended, normoactive bowel sounds, no guarding, no rebound, no masses. No hepatomegaly or splenomegaly. MUSCULOSKELETAL: Normal range of motion at all joints. No bony deformities or tenderness. No CVA tenderness. UPPER EXTREMITIES: 2+ pulses, warm, well-perfused. No cyanosis. No clubbing. No peripheral edema. LOWER EXTREMITIES: 2+ pulses, warm, well-perfused. No calf tenderness. No peripheral edema. NEUROLOGICAL: Cranial nerves II-XII intact. Normal speech. PSYCHIATRIC: Cooperative. Good eye contact. Appropriate mood and affect. SKIN: Warm, dry, normal turgor, no rashes or lesions noted, normal capillary refill. Laboratory Results - last 24 hr 3 10/20/17 10/20/17 16:41 16:41 WBC 6.2 RBC 4.09 Hgb 13.2 Hct 38.9 MCV 95.2 MCH 32.3 MCHC 34.0 RDW 14.1 Plt Count 237 MPV 7.6 Absolute Neuts (auto) 3.2 Neutrophils % 51.9 D Lymphocytes % 35.9 D Monocytes % 10.0 Eosinophils % 1.3 D Basophils % 0.9 Nucleated RBC % 0 Sodium 134 L Potassium 4.3 Chloride 99 Carbon Dioxide 28 Anion Gap 7 L BUN 17 Creatinine 0.8 Creat Clearance w eGFR > 60 Random Glucose 97 Calcium 8.8 Total Bilirubin 0.3 AST 17 ALT 20 Alkaline Phosphatase 55 Creatine Kinase 62 Troponin I < 0.02 B-Natriuretic Peptide 511.22 H Total Protein 7.0 Albumin 3.6 ECG Normal sinus rhythm Vent rate 76, QTC 423 T wave inversion lead 3, flattening, aVF, present on previous ECG dated 06/05/17 Radiology Reports Chest xray portable A single view the chest reveals little change since 04/12/2016. Again there is a scoliosis with convexity to the right, prominent mediastinum and slight fullness of the right hilum. An acute chest process is not seen. Correlation recommended. Reported By: Livan Guerra MD 10/20/17 3621 ASSESSMENT/PLAN: 86yF with PMH HTN, MVP, "leaky valves" as per daughter, anxiety, diverticulitis , chronic constipation presented with chest pain. Chest pain - troponin neg x 1, ECG unchanged - trend trop x 2 more - cardiology consult - daughter reports normal stress test within last 1-2 years - echo - cont home ASA - lipid panel in am HTN - on midodrine--unclear why, cardiology/PCP to follow constipation - cont home miralax and metamucil anxiety - cont home buspar DVT PPX - heparin deferred as anticipated LOS <48h FEN - tolerating po - BMP in am - regular diet as tolerated Dispo: Pt requires further observation. Visit type - Emergency Visit Emergency Visit: Yes ED Registration Date: 10/20/17 Care time: The patient presented to the Emergency Department on the above date and was hospitalized for further evaluation of their emergent condition. - New Patient This patient is new to me today: Yes Date on this admission: 10/20/17 - Critical Care Critical Care patient: No Hospitalist Screening - Colonoscopy Questionnaire Colonoscopy Questionnaire: Colonoscopy Questionnaire - Patient: 50 - 75 years old and never had a screening colonoscopy: No History of colon or rectal polyps, or CA: No History of IBD, Crohn's disease or UC: No History of abdominal radiation therapy as a child: No - Relative: 1 with colon or rectal CA, or polyps at age 60 or younger: No Colon or rectal CA diagnosed at age 45 or younger: No Multiple relatives with colon or rectal CA: No - Outcome: Screening Result: Negative Screen
[2017-10-20] MEDS ORDERED: busPIRone HCL 5 MG TABLET ONE (23:07)
[2017-10-20] MEDS: busPIRone HCL 5 MG TABLET PO SCH (23:09)
[2017-10-20 23:41] LABS: URINE APPEARANCE SLCLOUDY; URINE BILIRUBIN NEGATIVE (<2.0 mg/dL); URINE COLOR YELLOW; URINE GLUCOSE (UA) NEGATIVE (NEGATIVE); URINE KETONE NEGATIVE (NEGATIVE); URINE LEUK ESTERASE TRACE (NEGATIVE); URINE NITRITE NEGATIVE (NEGATIVE); URINE PROTEIN NEGATIVE (NEGATIVE); URINE UROBILINOGEN NEGATIVE mg/dL (0.2-1.0)
[2017-10-20 23:47] LABS: EPI CELLS RARE /HPF (FEW); URINE HYALINE CAST 1 /lpf
[2017-10-21] MEDS ORDERED: MORPHINE SULFATE 2 MG/ML VIAL IVPUSH ONE (01:36)
[2017-10-21 01:42] VITALS: BMI 28.9
[2017-10-21 06:34] LABS: BASO % 0.9 % (0-2.0); EOS % 2.6 % (0-4.5); HEMOGLOBIN 13.1 GM/dL (10.7-15.3); LYMPH % 37.5 % (8-40); MCH 32.9 pg (25.7-33.7); MCHC 34.5 g/dl (32.0-36.0); MEAN CELL VOLUME 95.3 fl (80-96); MEAN PLT VOLUME 7.7 fl (7.5-11.1); MONO % 11.6 % (3.8-10.2); NEUT % 47.4 % (42.8-82.8); PLATELET COUNT 210 K/MM3 (134-434); RBC 3.98 M/mm3 (3.60-5.2); RDW 13.9 % (11.6-15.6); WHITE BLOOD COUNT 5.5 K/mm3 (4.0-10.0)
[2017-10-21 07:04] LABS: CALCIUM 8.9 mg/dL (8.5-10.1); CHLORIDE 101 mmol/L (98-107); POTASSIUM 4.4 mmol/L (3.5-5.1); SODIUM 138 mmol/L (136-145)
[2017-10-21 07:16] LABS: ANION GAP 4 (8-16); BLOOD UREA NITROGEN 14 mg/dL (7-18); CHOLESTEROL 210 mg/dL (50-200); CO2 33 mmol/L (21-32); CREATININE 0.7 mg/dL (0.55-1.02); GLUCOSE,RANDOM 91 mg/dL (74-106); HDL CHOLESTEROL 67 mg/dL (40-60); MAGNESIUM 2.4 mg/dL (1.8-2.4); PHOSPHOROUS 4.2 mg/dL (2.5-4.9); TRIGLYCERIDES 60 mg/dL (35-160)
[2017-10-21] MEDS ORDERED: PATIENT'S OWN MEDICATION (NON-FORMULARY) (Polyethylene Glycol [Polyox Wsr-301] 1 GM) MC SCH (10:00)
--- NOTE | 2017-10-21 10:48 | PN ---
Progress Note, Physician Chief Complaint: NOTES REVIEWED AWAKE ALERT DENIES CHEST PAIN TODAY - Current Medication List Current Medications: Active Medications Aspirin (Asa -) 81 mg PO DAILY [facility] Buspirone HCl (Buspar -) 5 mg PO BID [facility] Last Admin: 10/20/17 23:09 Dose: Not Given Docusate Sodium (Colace -) 100 mg PO DAILY [facility] Ergocalciferol (Drisdol -) 50,000 unit PO Fr@1000 [facility] Furosemide (Lasix -) 20 mg PO DAILY [facility] Loratadine (Claritin -) 10 mg PO DAILY [facility] Midodrine (Proamatine -) 7.5 mg PO TID-MID [facility] Ranitidine HCl (Zantac -) 150 mg PO DAILY [facility] - Objective Vital Signs: Vital Signs Temperature 97.6 F 10/21/17 09:00 Pulse Rate 60 10/21/17 09:00 Respiratory Rate 16 10/21/17 09:00 Blood Pressure 133/64 10/21/17 09:00 O2 Sat by Pulse Oximetry (%) 97 10/21/17 09:00 Constitutional: Yes: Mild Distress Eyes: Yes: WNL HENT: Yes: WNL Neck: Yes: WNL Cardiovascular: Yes: WNL Respiratory: Yes: WNL Gastrointestinal: Yes: WNL Genitourinary: Yes: WNL Musculoskeletal: Yes: Muscle Weakness Extremities: Yes: WNL Edema: No Peripheral Pulses WNL: Yes Integumentary: Yes: WNL Wound/Incision: Yes: Clean/Dry Neurological: Yes: Pre-Existing Deficit ...Motor Strength: LLE, RLE Psychiatric: Yes: Other Labs: CBC, BMP 10/21/17 05:30 10/21/17 05:30 Problem List - Problems (1) Parkinson disease Code(s): G20 - PARKINSON'S DISEASE (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
[2017-10-21] MEDS: busPIRone HCL 5 MG TABLET PO SCH ×2 (11:13→21:56)
[2017-10-21] MEDS: LORATADINE 10 MG TABLET PO SCH (11:29)
[2017-10-21] MEDS: FUROSEMIDE 20 MG TABLET (FP) PO SCH (11:29)
[2017-10-21] MEDS: ASPIRIN 81 MG CHEWABLE TABLETS PO SCH (11:29)
[2017-10-21] MEDS: RANITIDINE HCL 150 MG TABLET (FP) PO SCH (11:29)
[2017-10-21] MEDS: DOCUSATE SODIUM 100 MG CAPSULE (FP) PO SCH (11:29)
[2017-10-21] MEDS: MIDODRINE HCL 2.5 MG TABLET PO SCH ×3 (11:42→17:08)
--- NOTE | 2017-10-21 12:45 | EKG ---
Test Reason : Blood Pressure : / mmHG Vent. Rate : 061 BPM Atrial Rate : 061 BPM P-R Int : 156 ms QRS Dur : 068 ms QT Int : 428 ms P-R-T Axes : 079 020 010 degrees QTc Int : 430 ms NORMAL SINUS RHYTHM NORMAL ECG WHEN COMPARED WITH ECG OF 05-JUN-2017 13:53, NO SIGNIFICANT CHANGE WAS FOUND Confirmed by IDRIS MOLINA MD ([id number]) on 10/21/2017 12:45:08 PM Referred By: MAXX ELAINE Confirmed By:IDRIS MOLINA MD
--- NOTE | 2017-10-21 13:25 | ECHO ---
Name: LIA GUERRERO Exam:Adult Echocardiogram Study Date: 10/21/2017 07:23 AM Age: 86 yrs Reason For Study: Chest pain Height: 59 in Weight: 140 lb BSA: 1.6 m2 MMode/2D Measurements & Calculations IVSd: 1.2 cm Ao root diam: 2.8 cm LVIDd: 3.9 cm LA dimension: 3.4 cm LVIDs: 2.6 cm LVPWd: 0.87 cm EDV(Teich): 65.9 ml LAV (MOD-bp): 81.7 ml ESV(Teich): 24.4 ml Doppler Measurements & Calculations MV E max marvin: 85.4 cm/sec AI P1/2t: 629.9 msec MV A max marvin: 67.9 cm/sec MV E/A: 1.3 MV dec time: 0.46 sec AI max marvin: 475.0 cm/sec MR max marvin: 576.1 cm/sec AI max P.3 mmHg MR max P.8 mmHg AI dec slope: 220.9 cm/sec2 TR max marvin: 277.2 cm/sec Med Peak E' Marvin: 6.9 cm/sec TR max P.9 mmHg Med E/e': 12.5 Lat Peak E' Marvin: 8.8 cm/sec Lat E/e': 9.7 Procedure A complete two-dimensional transthoracic echocardiogram was performed (2D, M-mode, Doppler and color flow Doppler). Left Ventricle The left ventricular size, thickness and function are normal. Ejection Fraction = 60-65%. The left ve ntricular wall motion is normal. Right Ventricle The right ventricle is normal in size and function. Atria The left atrium is mildly dilated. Right atrial size is normal. Mitral Valve There is mild mitral regurgitation. Tricuspid Valve There is trace tricuspid regurgitation. Right ventricular systolic pressure is normal. Aortic Valve No hemodynamically significant valvular aortic stenosis. Mild aortic regurgitation. Pulmonic Valve There is no pulmonic valvular regurgitation. Great Vessels The aortic root is normal size. Pericardium/Pleura There is no pericardial effusion. Interpretation Summary The left ventricular size, thickness and function are normal. The right ventricle is normal in size and function. The left atrium is mildly dilated. There is mild mitral regurgitation. There is trace tricuspid regurgitation. Mild aortic regurgitation. MD Jake Hopkins 10/21/2017 01:25 PM
--- NOTE | 2017-10-21 13:26 | CON.CARD ---
Consult Consult Specialty:: Cardiology Referred by:: Minoo Reason for Consultation:: chest pain - History of Present Illness Chief Complaint: chest pain History of Present Illness: 86F h/o HTN, MVP, mild to moderate mitral regurgitation, anxiety, diverticulitis p/w chest pain that is "light" over the last few days. Trop negative x 3, EKG unchanged from prior. No events on tele. Noted to have a history of atypical chest pain, last stress MPI in 2017 was unremarkable. unremarkable echo as well in 2017. History of MR on most recent echos mild, prior hx severe MR was likely functional in the past. Sees Dr. Abebe for cardio , has been stable. - Past Medical History Cardio/Vascular: Yes: CAD, Mitral Insufficiency (recent evaluation) ...: No Psych: Yes: Anxiety - Past Surgical History Past Surgical History: Yes: None - Alcohol/Substance Use Hx Alcohol Use: No History of Substance Use: reports: None - Smoking History Smoking history: Never smoked Have you smoked in the past 12 months: No Aproximately how many cigarettes per day: 0 - Social History ADL: Family Assistance History of Recent Travel: No Home Medications - Allergies Allergies/Adverse Reactions: Allergies Allergy/AdvReac Type Severity Reaction Status Date / Time No Known Allergies Allergy Verified 10/20/17 16:48 - Home Medications Home Medications: Ambulatory Orders Aspirin 81 mg PO DAILY #0 tab.chew 07/21/13 Cetirizine HCl [Zyrtec -] 10 mg PO DAILY 07/14/14 Polyethylene Glycol [Polyox Wsr-301] 1 gm MC DAILY 12/29/14 Buspirone HCl [Buspar -] 5 mg PO BID 02/27/16 Cholecalciferol (Vitamin D3) [Vitamin D3] 5,000 unit PO WEEKLY 02/27/16 Docusate Sodium [Colace] 100 mg PO DAILY PRN 04/04/17 Furosemide 20 mg PO DAILY 04/04/17 Midodrine HCl 7.5 mg PO TID 04/04/17 Ranitidine HCl 150 mg PO DAILY 04/04/17 L.acidoph,Paracasei, B.lactis [Probiotic] 1 cap PO DAILY 10/21/17 Family Disease History - Family Disease History Family Disease History: CA: Brother Review of Systems - Review of Systems Constitutional: reports: No Symptoms Eyes: reports: No Symptoms HENT: reports: No Symptoms Neck: reports: No Symptoms Cardiovascular: reports: Chest Pain Respiratory: reports: SOB Gastrointestinal: reports: No Symptoms Musculoskeletal: reports: No Symptoms Integumentary: reports: No Symptoms Neurological: reports: No Symptoms Vital Signs: Vital Signs Temperature 97.6 F 10/21/17 09:00 Pulse Rate 60 10/21/17 09:00 Respiratory Rate 16 10/21/17 09:00 Blood Pressure 133/64 10/21/17 09:00 O2 Sat by Pulse Oximetry (%) 97 10/21/17 09:00 Constitutional: Yes: Well Nourished, No Distress Eyes: Yes: Conjunctiva Clear, EOM Intact HENT: Yes: Atraumatic, Normocephalic Neck: Yes: Supple Respiratory: Yes: Regular, CTA Bilaterally Gastrointestinal: Yes: Normal Bowel Sounds, Soft Cardiovascular: Yes: Regular Rate and Rhythm JVD: No Murmur: Yes: Systolic Murmur, Grade 2 Edema: No Psychiatric: Yes: Alert, Oriented - Other Data Labs, Other Data: CBC, BMP 10/21/17 05:30 10/21/17 05:30 Troponin, BNP 10/20/17 10/20/17 10/21/17 16:41 23:19 05:30 Troponin I < 0.02 < 0.02 < 0.02 B-Natriuretic Peptide 511.22 H Troponin, BNP 10/20/17 10/20/17 10/21/17 16:41 23:19 05:30 Troponin I < 0.02 < 0.02 < 0.02 B-Natriuretic Peptide 511.22 H Assessment/Plan MPI 10/05 (dbebi): No ischemic ST-T changes. No evidence of ischemia. Hyperdynamic LVEF. Normal LV cavity size, with no transient dilation present. echo 10/21/17 nl LV/RV function, mild MR, mild AR, mildly dilated LA EKG 10/21/17 sinus rhythm, no ischemic changes tele: sinus, no events, rate controlled CXR: no acute process 86F h/o HTN, MVP, mild to moderate mitral regurgitation, anxiety, diverticulitis p/w chest pain that is "light" over the last few days chest pain - less likely ACS, trop negative x 3, EKG unchanged - echo unremarkable, unchanged from prior in clinic - recent stress test no ischemia - would not pursue further cardiac work up as inpatient - continue aspirin mitral regurgitation - mild on echo, no planned interventions - follow up with Dr. Abebe as outpatient HTN - controlled, continue lasix
[2017-10-22] MEDS ORDERED: PT OWN MED DRAWER 7, Y5N ONE (08:06)
[2017-10-22] MEDS: LORATADINE 10 MG TABLET PO SCH ×2 (08:41→09:27)
[2017-10-22] MEDS: RANITIDINE HCL 150 MG TABLET (FP) PO SCH ×2 (08:41→09:28)
[2017-10-22] MEDS: FUROSEMIDE 20 MG TABLET (FP) PO SCH ×2 (08:41→09:28)
[2017-10-22] MEDS: busPIRone HCL 5 MG TABLET PO SCH ×2 (08:41→09:27)
[2017-10-22] MEDS: DOCUSATE SODIUM 100 MG CAPSULE (FP) PO SCH ×2 (08:42→09:27)
[2017-10-22] MEDS: ASPIRIN 81 MG CHEWABLE TABLETS PO SCH ×2 (08:42→09:27)
[2017-10-22] MEDS: MIDODRINE HCL 2.5 MG TABLET PO SCH ×2 (08:43→09:28)
[2017-10-22] MEDS ORDERED: ERGOCALCIFEROL (VITAMIN D2) 50,000 UNIT CAPSULE (FP) PO SCH (10:00)
--- NOTE | 2017-10-22 10:00 | DS ---
Physical Examination Vital Signs: Vital Signs Temperature 97.6 F 10/22/17 06:00 Pulse Rate 71 10/22/17 06:00 Respiratory Rate 18 10/22/17 06:00 Blood Pressure 125/67 10/22/17 06:00 O2 Sat by Pulse Oximetry (%) 98 10/21/17 21:00 Constitutional: Yes: No Distress Eyes: Yes: WNL HENT: Yes: WNL Neck: Yes: WNL Cardiovascular: Yes: WNL Respiratory: Yes: WNL Gastrointestinal: Yes: WNL Renal/: Yes: WNL Musculoskeletal: Yes: WNL Extremities: Yes: WNL Edema: No Peripheral Pulses WNL: Yes Integumentary: Yes: WNL Wound/Incision: Yes: Clean/Dry Neurological: Yes: Pre-Existing Deficit ...Motor Strength: LLE, RLE Psychiatric: Yes: Other Labs: CBC, BMP 10/21/17 05:30 10/21/17 05:30 Discharge Summary Reason For Visit: CHEST PAIN Current Active Problems Anxiety (Acute) Chest pain (Acute) Parkinson disease (Acute) Shortness of breath (Acute) Shy-Drager syndrome (Acute) Procedures: Principal: CT/ECHO/CXR Hospital Course: CARDIAC WORKUP NO ACUTE EVNTS LIKELY FATIGUE AND DEHYDRATION WITH PRESYNCOPE. F/ U OUTPATIENT Condition: Fair - Instructions Diet, Activity, Other Instructions: SEE DR KELSEY 1 MONTH Disposition: VNS/HOME HEALTH CARE - Home Medications Comprehensive Discharge Medication List: Ambulatory Orders Aspirin 81 mg PO DAILY #0 tab.chew 07/21/13 Cetirizine HCl [Zyrtec -] 10 mg PO DAILY 07/14/14 Polyethylene Glycol [Polyox Wsr-301] 1 gm MC DAILY 12/29/14 Buspirone HCl [Buspar -] 5 mg PO BID 02/27/16 Cholecalciferol (Vitamin D3) [Vitamin D3] 5,000 unit PO WEEKLY 02/27/16 Docusate Sodium [Colace] 100 mg PO DAILY PRN 04/04/17 Furosemide 20 mg PO DAILY 04/04/17 Midodrine HCl 7.5 mg PO TID 04/04/17 Ranitidine HCl 150 mg PO DAILY 04/04/17 L.acidoph,Paracasei, B.lactis [Probiotic] 1 cap PO DAILY 10/21/17
--- NOTE | 2017-10-22 12:03 | PN ---
Progress Note (short form) - Note Progress Note: s: no cp sob palps dizzy O: Vital Signs Period Temp Pulse Resp BP Sys/Barnes Pulse Ox Last 24 Hr 97.3 F-98.2 F 58-71 16-18 122-142/55-67 98 Constitutional: Yes: Well Nourished, No Distress Eyes: Yes: Conjunctiva Clear, EOM Intact Neck: Yes: Supple Respiratory: Yes: Regular, CTA Bilaterally Gastrointestinal: Yes: Normal Bowel Sounds, Soft Cardiovascular: Yes: Regular Rate and Rhythm JVD: No Murmur: Yes: Systolic Murmur, Grade 2 Edema: No Psychiatric: Yes: Alert, Oriented Current Medications Generic Name Dose Route Start Last Admin Trade Name Freq PRN Reason Stop Dose Admin Aspirin 81 mg 10/21/17 10:00 10/22/17 09:27 Asa - PO Not Given DAILY FANI Buspirone HCl 5 mg 10/20/17 22:00 10/22/17 09:27 Buspar - PO Not Given BID [facility] Docusate Sodium 100 mg 10/21/17 10:00 10/22/17 09:27 Colace - PO Not Given DAILY [facility] Ergocalciferol 50,000 unit 10/22/17 10:00 Drisdol - PO Fr@1000 FANI Furosemide 20 mg 10/21/17 10:00 10/22/17 09:28 Lasix - PO Not Given DAILY FANI Loratadine 10 mg 10/21/17 10:00 10/22/17 09:27 Claritin - PO Not Given DAILY [facility] Midodrine 7.5 mg 10/21/17 10:00 10/22/17 09:28 Proamatine - PO Not Given TID-MID FANI Ranitidine HCl 150 mg 10/21/17 10:00 10/22/17 09:28 Zantac - PO Not Given DAILY [facility] CBC, BMP 10/21/17 05:30 10/21/17 05:30 Assessment/Plan MPI 10/05 (debbi): No ischemic ST-T changes. No evidence of ischemia. Hyperdynamic LVEF. Normal LV cavity size, with no transient dilation present. echo 10/21/17 nl LV/RV function, mild MR, mild AR, mildly dilated LA EKG 10/21/17 sinus rhythm, no ischemic changes tele: sinus CXR: no acute process 86F h/o HTN, MVP, mild to moderate mitral regurgitation, anxiety, diverticulitis p/w chest pain that is "light" over the last few days chest pain - less likely ACS, trop negative x 3, EKG unchanged - echo unremarkable, unchanged from prior in clinic - recent stress test no ischemia - would not pursue further cardiac work up as inpatient - continue aspirin mitral regurgitation - mild on echo, no planned interventions - follow up with Dr. Abebe as outpatient HTN - controlled, continue lasix cardiac jimenez ok for dc
[2017-10-22 14:46] VITALS: BP 120/65; PULSE 87; TEMP 98.7
--- NOTE | 2017-10-23 09:13 | EKG ---
Test Reason : Blood Pressure : / mmHG Vent. Rate : 076 BPM Atrial Rate : 076 BPM P-R Int : 152 ms QRS Dur : 066 ms QT Int : 376 ms P-R-T Axes : 096 005 008 degrees QTc Int : 423 ms POOR DATA QUALITY, INTERPRETATION MAY BE ADVERSELY AFFECTED NORMAL SINUS RHYTHM NORMAL ECG WHEN COMPARED WITH ECG OF 05-JUN-2017 13:53, NO SIGNIFICANT CHANGE WAS FOUND Confirmed by ANA MARIA MOREAU, ALIA ([id number]) on 10/23/2017 9:12:57 AM Referred By: Confirmed By:ALIA RODEGRS MD
== END 2017-10-22 15:04 | disposition home health service (06) ==
LOC: JER 15:54 → JERBED 18:35 → J4W 10-21 01:01
PROVIDERS: ADMIT Internal Medicine; ATTEND Family Medicine
PROC: 3E033NZ Introduction of Analgesics, Hypnotics, Sedatives into Peripheral Vein, Percutaneous Approach (ICD-10-PCS; principal; 2017-10-20)
DX: R07.9 Chest pain, unspecified (principal); R06.02 Shortness of breath; R10.9 Unspecified abdominal pain; I10 Essential (primary) hypertension; E78.5 Hyperlipidemia, unspecified; K59.00 Constipation, unspecified; F41.9 Anxiety disorder, unspecified; I34.1 Nonrheumatic mitral (valve) prolapse; G20 Parkinson's disease; G90.3 Multi-system degeneration of the autonomic nervous system; I34.0 Nonrheumatic mitral (valve) insufficiency; Z79.82 Long term (current) use of aspirin
CPT/HCPCS: 36415; 71045-TC-FY; 80048; 80053; 80061; 81003; 81015; 82550; 83721; 83735; 83880; 84100; 84484; 85025; 93005; 93010; 93306-TC; 96374; 97116-GP; 97161-GP; 99285-25; G0378

== ENCOUNTER 2018-09-21 12:07 | Emergency (ER) | payer OTHER ==
[2018-09-21 12:16] VITALS: BMI 32.3
--- NOTE | 2018-09-21 13:14 | PDOC ---
History of Present Illness - General Chief Complaint: Pain Stated Complaint: PAIN/ STOMACH BLOATED - History of Present Illness Initial Comments: Nirmal Lara is an 87yo woman with a PMH of HTN, mitral prolapse w/ moderate regurgitation, anxiety, and previous diverticulitis who presents with abdominal bloating, cramping low abdominal pain, and rectal pressure for 3 days. She states that the pain comes and goes, and it has been up to 10/10 in intensity. It is located in the b/l low abdomen as well as pain/pressure in her rectum. She is unable to describe the quality of the pain. Ms Lara states that she does have chronic constipation as well as hemorrhoids, but she has had a small, soft bowel movement every day including this morning. She did see a small spot of blood on the tissue today, but she reports that she was pushing for longer than normal today. Ms Lara reports that she has been able to eat without difficutly, denies nausea or vomiting, and additionally denies any hard stool, diarrhea, fever/chills, or urinary symptoms. Past History - Past Medical History Allergies/Adverse Reactions: Allergies Allergy/AdvReac Type Severity Reaction Status Date / Time No Known Allergies Allergy Verified 09/21/18 12:16 Home Medications: Ambulatory Orders Aspirin 81 mg PO DAILY #0 tab.chew 07/21/13 Cetirizine HCl [Zyrtec -] 10 mg PO DAILY 07/14/14 Polyethylene Glycol [Polyox Wsr-301] 1 gm MC DAILY 12/29/14 Buspirone HCl [Buspar -] 5 mg PO BID 02/27/16 Furosemide 20 mg PO DAILY 04/04/17 Midodrine HCl 7.5 mg PO TID 04/04/17 Ranitidine HCl 150 mg PO DAILY 04/04/17 L.acidoph,Paracasei, B.lactis [Probiotic] 1 cap PO DAILY 10/21/17 Ciprofloxacin [Cipro -] 500 mg PO Q12H #14 tablet 09/21/18 Gabapentin 100 mg PO BID 09/21/18 metroNIDAZOLE [Flagyl -] 500 mg PO Q8H #21 tablet 09/21/18 Anemia: No Asthma: No 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) CVA: No COPD: No CHF: Yes Dementia: No Diabetes: No GI Disorders: Yes (DIVERTICULITIS) Disorders: No HTN: Yes Hypercholesterolemia: No Liver Disease: No Psychiatric Problems: Yes (anxiety?) Seizures: No Thyroid Disease: No - Surgical History Abdominal Surgery: Yes Appendectomy: No Cardiac Surgery: No Cholecystectomy: No Lung Surgery: No Neurologic Surgery: No Orthopedic Surgery: No - Immunization History Td Vaccination: Yes TDAP Vaccination: Yes Immunization Up to Date: Yes - Suicide/Smoking/Psychosocial Hx Smoking Status: No Smoking History: Never smoked Have you smoked in the past 12 months: No Number of Cigarettes Smoked Daily: 0 Information on smoking cessation initiated: No Hx Alcohol Use: No Drug/Substance Use Hx: No Substance Use Type: None Hx Substance Use Treatment: No Review of Systems - Review of Systems Comments:: General: No fevers, no chills, no weight or appetite change, no malaise HEENT: No changes in vision, no changes in hearing, no congestion, no sore throat CV: No chest pain, no palpitations, no LE edema Pulm: No SOB, no cough, no wheezing GI: No nausea or vomiting. See HPI : No frequency, no urgency, no dysuria Musc: No back pain, no joint swelling, no recent injury Skin: No rash, no lesions, no erythema Endo: No excessive thirst, no heat/cold intolerance Heme: No unusual bruising or bleeding, no swollen glands Neuro: No syncope, no numbness/tingling, no focal weakness Vasc: No claudication Psych: No recent change in mood, no SI or HI *Physical Exam - Vital Signs Last Vital Signs Temp Pulse Resp BP Pulse Ox 98.5 F 93 H 18 120/62 100 09/21/18 12:12 09/21/18 12:12 09/21/18 12:12 09/21/18 12:12 09/21/18 12:12 - Physical Exam Comments: General: Comfortable, no acute distress HEENT: PERRL, EOMI, MMM, voice normal, normal neck ROM, no LAD Cards: RRR, no murmur appreciated Pulm: Comfortable on room air, clear to auscultation bilaterally Abd: Soft, non-distended. Mildly TTP in b/l low abdomen. : No CVA tenderness. Full/palpable, nontender bladder Rectal: Normal tone, no blood noted, no perianal lesions. Soft brown stool in rectal vault. Ext: Atraumatic. No LE edema. ROM intact Vasc: Extremities WWP Skin: Normal color, no rashes or lesions Neuro: A&Ox3, CN grossly intact, normal speech, motor/sensory grossly intact and symmetric Psych: Mood appropriate to situation ED Treatment Course - LABORATORY CBC & Chemistry Diagram: 09/21/18 13:30 09/21/18 13:30 Medical Decision Making - Medical Decision Making 09/21/18 13:36 Nirmal Lara is an 87yo woman with a PMH of HTN, mitral prolapse w/ moderate regurgitation, anxiety, previous diverticulitis, and chronic constipation who presents with abdominal bloating, intermittent cramping 10/10 low abdominal pain, and rectal pain/pressure for 3 days. - Ddx includes diverticulitis, UTI, less likely constipation given soft BM daily but possible as the bowel movements have been smaller than normal, less likely colitis as there is no diarrhea. Unlikely to be ischemia, and no upper abdominal symptoms suggestive of gastritis, pancreatitis, or cholecystitis. - CBC, CMP, mag, UA, UCx - FOBT - CT abd/pelvis with contrast 09/21/18 13:52 - Seen w/ Carrie Blackwood and [place]. Adding lactate 09/21/18 14:42 - Labs without concerning abnormalities - FOBT negative - Will take for CT when available 09/21/18 17:28 - CT indicates uncomplicated diverticulitis. - Discussed results with Ms Lara and her daughter; would prefer to be discharged home with antibiotics. Discussed home care, return precautions, and follow up at length. Pt follows with GI; already made an appointment at the end of the month. Both Ms Lara and her daughter understand and agree with the plan. Discussed with Carrie Amaya. Corine Baker PGY2 *DC/Admit/Observation/Transfer Diagnosis at time of Disposition: Diverticulitis - Discharge Dispostion Disposition: HOME Condition at time of disposition: Stable Decision to Admit order: No - Prescriptions Prescriptions: Ciprofloxacin [Cipro -] 500 mg PO Q12H #14 tablet metroNIDAZOLE [Flagyl -] 500 mg PO Q8H #21 tablet - Referrals Referrals: Maryjane Hennessy MD [Primary Care Provider] - Jt Klein DO [Staff Physician] - - Patient Instructions Printed Discharge Instructions: DI for Diverticulitis Additional Instructions: Discharge Instructions: You were seen in the ED for abdominal pain, and you were diagnosed with diverticulitis, which is an infection of the colon. Home Care and Follow Up: - You have been prescribed two antibiotics that should be taken for the next week. One is called ciprofloxacin and should be taken every 12 hours. The other is metronidazole and should be taken every 8 hours. - For the next few days, it is recommended that you avoid solid foods. Stick to liquids like juice, broth, or oatmeal. - Follow up with the stomach doctor (mall manager) within a week. You have been given contact information for Dr Klein. Call today to make an appointment - Follow up on Wednesday with Dr. Hennessy as a walk in on 09/26. He is expecting you. - Seek immediate care if your symptoms worsen, you develop fever to 101F or higher, you are unable to tolerate eating or drinking, or if you have any other medical emergency. Print Language: KAZAKH - Post Discharge Activity
[2018-09-21] MEDS ORDERED: ACETAMINOPHEN 1000 MG/100 ML VIAL (NON FORMULARY) IVPB ONE (13:15)
[2018-09-21] MEDS ORDERED: SODIUM CHLORIDE 0.9% 500 ML INFUS.BAG IV ONE (13:16)
--- NOTE | 2018-09-21 13:39 | PDOC ---
Documentation entered by Chen Lopez SCRIBE, acting as scribe for Trung Blackwood MD. Trung Blackwood MD: This documentation has been prepared by the Jessica ruiz Sammi, SCRIBE, under my direction and personally reviewed by me in its entirety. I confirm that the documentation accurately reflects all work, treatment, procedures, and medical decision making performed by me. Attending Attestation - Resident Resident Name: OliviaCorine - ED Attending Attestation I have performed the following: I have examined & evaluated the patient, The case was reviewed & discussed with the resident, I agree w/resident's findings & plan, Exceptions are as noted - HPI HPI: 09/21/18 13:35 87yo F hx HTN, MVP, anxiety, diverticulitis, hysterectomy presents to the ED with 3 days of lower abd pain, worse this morning. Pt's daughter who sees her daily assists with history taking. Reports pain is worse in LLQ than RLQ. Denies associated fevers, chills, N/V/D. Last BM this morning was formed, brown , but pt reports a few drops of BRB on toilet paper when she wiped. Denies associated headache, weakness, CP, SOB, LE edema, back pain. Denies dysuria, hematuria, urinary frequency. - Physicial Exam PE: 09/21/18 13:38 agree with resident exam - Medical Decision Making 09/21/18 13:38 87yo F presents to the ED with lower abd pain and BRB on tpoilet paper after BM this morning Pt is well appearing, pleasant, in NAD Exam wth LLQ>RLQ ttp. No CVAT DDx includes diverticulitis vs diverticulosis vs colitis vs appendicitis vs UTI Plan for labs including lactic (to screen for mesenteric ischemia), UA, CTAP with IV contrast, reassess 09/21/18 16:00 Pt well appearing Feeling better 09/21/18 18:02 CTAP with acute uncomplicated diverticulitis On repeat eval, pt continues to be well appearing No white count, no fevers or other systemic signs of infection Pt lives in same buidling with daughter who checks in on her daily Tolerating PO Will DC with strict return precautions Case discussed with [facility] Costello (covering for Dr. Hennessy), they are in agreement with plan to DC pt with strict return precautions. They want to see pt as a walk in on Wednesday which has been communicated to patient and daughter I discussed the physical exam findings, ancillary test results and final diagnoses with the patient. I answered all of the patient's questions. The patient was satisfied with the care received and felt comfortable with the discharge plan and treatment plan. The patient will call their primary care physician within 24 hours to arrange follow-up and will return to the Emergency Department with any new, persistent or worsening symptoms.
[2018-09-21 13:48] LABS: BASO % 0.4 % (0-2.0); EOS % 0.5 % (0-4.5); HEMATOCRIT 39.9 % (32.4-45.2); HEMOGLOBIN 13.5 GM/dL (10.7-15.3); LYMPH % 14.9 % (8-40); MCH 33.5 pg (25.7-33.7); MCHC 33.8 g/dl (32.0-36.0); MEAN CELL VOLUME 99.2 fl (80-96); MEAN PLT VOLUME 7.3 fl (7.5-11.1); MONO % 8.3 % (3.8-10.2); NEUT % 75.9 % (42.8-82.8); PLATELET COUNT 275 K/MM3 (134-434); RBC 4.02 M/mm3 (3.60-5.2); RDW 14.3 % (11.6-15.6); WHITE BLOOD COUNT 9.1 K/mm3 (4.0-10.0)
[2018-09-21 14:10] LABS: ALBUMIN 3.7 g/dl (3.4-5.0); BILIRUBIN,TOTAL 0.5 mg/dL (0.2-1); BLOOD UREA NITROGEN 15.2 mg/dL (7-18); CALCIUM 9.4 mg/dL (8.5-10.1); CREATININE 0.9 mg/dL (0.55-1.3); MAGNESIUM 2.5 mg/dL (1.8-2.4); POTASSIUM 4.4 mmol/L (3.5-5.1); TOT PROT 7.4 g/dl (6.4-8.2)
[2018-09-21 14:20] LABS: EPI CELLS 5.5 /HPF (0-5/HPF); HYALINE CASTS 6 /lpf (0-8); URINE APPEARANCE CLEAR; URINE BACTERIA 68.1 /hpf (NEGATIVE); URINE BILIRUBIN NEGATIVE (NEGATIVE); URINE COLOR DK YELLOW; URINE GLUCOSE (UA) NEGATIVE (NEGATIVE); URINE KETONE NEGATIVE (NEGATIVE); URINE LEUK ESTERASE TRACE (NEGATIVE); URINE NITRITE NEGATIVE (NEGATIVE); URINE PROTEIN NEGATIVE (NEGATIVE); URINE RBC 9 /hpf (0-4); URINE WBC 5 /hpf (0-5)
[2018-09-21 18:18] VITALS: BP 118/60; PULSE 89; TEMP 98.1
== END 2018-09-21 17:45 | disposition home or self-care (01) ==
LOC: JER 12:07
PROC: 3E0337Z Introduction of Electrolytic and Water Balance Substance into Peripheral Vein, Percutaneous Approach (ICD-10-PCS; principal; 2018-09-21)
PROC: 3E033NZ Introduction of Analgesics, Hypnotics, Sedatives into Peripheral Vein, Percutaneous Approach (ICD-10-PCS; 2018-09-21)
DX: K57.92 Diverticulitis of intestine, part unspecified, without perforation or abscess without bleeding (principal)
CPT/HCPCS: 36415; 74177-TC; 80053; 81003; 82272; 83605; 83735; 85025; 87086; 99283-25; J0131

== ENCOUNTER 2018-10-23 00:43 | Emergency (ER) | payer OTHER ==
[2018-10-23 01:13] VITALS: TEMP 98.3
[2018-10-23 01:20] VITALS: BMI 28.5
[2018-10-23] MEDS ORDERED: ACETAMINOPHEN 500 MG TABLET (FP) PO ONE (01:30)
--- NOTE | 2018-10-23 01:33 | PDOC ---
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 ) Exam Limitations: Language Barrier - History of Present Illness Initial Comments: HPI: 87 y/o female presenting to [facility] ER complaining of pain to back of head, both shoulders, and middle of back after tripping while walking with a rollator. Fall occurred at approx. 8pm tonight. States one of the wheels malfunctioned which caused the pt to fall to her left side on a low rise bookshelf. Daughter at bedside reports she cannot recall if she found her mother on the floor. Pt denies LOC or preceding symptoms. Family states pt has been acting appropriately since the fall. Deny observing vomiting. Pt takes ASA daily. Medical Hx: - HTN - Mitral prolapse w/ moderate regurgitation - Anxiety - H/o diverticulitis Review of Systems: In addition to that documented in the HPI above, the additional ROS was obtained : Constitutional: Denies fevers or chills Head: Denies vision changes ENMT: Denies sore throat CV: Denies chest pain Resp: Denies SOB GI: Denies vomiting or diarrhea : Denies painful urination MSK: Per HPI Skin: Denies new rashes Neuro: Denies new numbness or tingling or weakness Endocrine: Denies polyuria Heme: Endorses bruise to right forearm. Denies bleeding. Physical Examination: Constitutional: Well-developed, well-nourished elderly adult female in no acute distress or obvious discomfort. Found semi-fowlers on hospital bed. Alert and oriented x4. Speech was non-labored, non-pressured. Head: Normocephalic. Small raised area with tenderness to palpation on left occiput. No Racoon eyes or Battles sign. Eyes: Sclerae white. Ears: Hearing grossly intact. Nose: No nasal discharge. Neck: Supple, trachea is midline. Diffuse tenderness to c-spine without bony deformities. Cardiovascular:Regular rate and regular rhythm. No murmur, rubs, clicks, or gallops. Peripheral pulses: radial pulses full. Respiratory: Breathing unlabored. Equal chest rise and fall. Clear to auscultation bilaterally. No stridor, no wheezing, no rhonchi. Gastrointestinal: abdomen is soft, non-tender, non-distended. Neuro: Alert and oriented. Moving all four extremities spontaneously. MSK: Diffuse tenderness to right and left shoulders. Active ROM limited above 90 degrees bilaterally secondary to pain. Small ecchymotic lesion to posterior left shoulder and right mid back. No anterior or posterior chest wall tenderness. Diffuse tenderness to lumbar spine without obvious deformity. Pelvis stable and nontender. Skin: Warm, dry, and intact. Psych: Affect: appropriate. Mood: normal. MDM: *Reviewed vital signs, nursing notes, and prior visit documentation (if available). 87 y/o female presenting after likely mechanical fall without concerning features. Afebrile. Vitals unremarkable for hypotension or tachycardia. Physical exam as described above. Low suspicion for acute injury. Will obtain CT of head, c-spine, and lumbar spine. Will obtain plain films of R and L shoulder. CT scans unremarkable for acute intracranial injury or bony deformity. Plain films unremarkable for acute bony deformity or dislocation per ED wet read. Radiology read pending. Pt reassessed and reports no additional pain. Discussed imaging results with pt and daughters. Answered all questions. Provided return precautions. Pt and daughters expressed verbal understanding and agreement with plan to discharge home with outpatient follow up. Provided copies of CT scan results. Kole Gonzalez M.D., PGY2 Emergency Medicine Resident Past History - Past Medical History Allergies/Adverse Reactions: Allergies Allergy/AdvReac Type Severity Reaction Status Date / Time No Known Allergies Allergy Verified 10/23/18 01:13 Home Medications: Ambulatory Orders Aspirin 81 mg PO DAILY #0 tab.chew 07/21/13 Cetirizine HCl [Zyrtec -] 10 mg PO DAILY 07/14/14 Polyethylene Glycol [Polyox Wsr-301] 1 gm MC DAILY 12/29/14 Buspirone HCl [Buspar -] 5 mg PO BID 02/27/16 Furosemide 20 mg PO DAILY 04/04/17 Midodrine HCl 7.5 mg PO TID 04/04/17 Ranitidine HCl 150 mg PO DAILY 04/04/17 L.acidoph,Paracasei, B.lactis [Probiotic] 1 cap PO DAILY 10/21/17 Ciprofloxacin [Cipro -] 500 mg PO Q12H #14 tablet 09/21/18 Gabapentin 100 mg PO BID 07/03/19 metroNIDAZOLE [Flagyl -] 500 mg PO Q8H #21 tablet 09/21/18 Anemia: No Asthma: No 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) CVA: No COPD: No CHF: Yes Dementia: No Diabetes: No GI Disorders: Yes (DIVERTICULITIS) Disorders: No HTN: Yes Hypercholesterolemia: No Liver Disease: No Psychiatric Problems: Yes (anxiety?) Seizures: No Thyroid Disease: No - Surgical History Abdominal Surgery: Yes Appendectomy: No Cardiac Surgery: No Cholecystectomy: No Lung Surgery: No Neurologic Surgery: No Orthopedic Surgery: No - Immunization History Td Vaccination: Yes TDAP Vaccination: Yes Immunization Up to Date: Yes - Suicide/Smoking/Psychosocial Hx Smoking Status: No Smoking History: Unknown if ever smoked Have you smoked in the past 12 months: No Number of Cigarettes Smoked Daily: 0 Hx Alcohol Use: No Drug/Substance Use Hx: No Substance Use Type: None Hx Substance Use Treatment: No *Physical Exam - Vital Signs Last Vital Signs Temp Pulse Resp BP Pulse Ox 98.3 F 88 18 124/68 10/23/18 01:11 10/23/18 01:11 10/23/18 01:11 10/23/18 01:11 Vital Signs - Vital Signs #1 Blood Pressure: 131/67 MAP: 88 BP Location: Right Arm Blood Pressure Position: Sitting Pulse Rate: 90 O2 Sat by Pulse Oximetry (%): 95 Oxygen Delivery Method: Room Air ED Treatment Course - RADIOLOGY Radiology Studies Ordered: Category Date Time Status CERVICAL SPINE CT W/O CONTR [CT] Stat CT Scan 10/23/18 01:[address] WITHOUT CONTRAST [CT] Stat CT Scan 10/23/18 01:[address] W/O CONTRAST [CT] Stat CT Scan 10/23/18 01:28 Ordered PELVIS [RAD] Stat Radiology 10/23/18 01:29 Ordered SHOULDER-LEFT [RAD] Stat Radiology 10/23/18 01:29 Ordered SHOULDER-RIGHT [RAD] Stat Radiology 10/23/18 01:29 Ordered Radiograph Interpretation: Head CT: THIS IS A PRELIMINARY REPORT FROM [facility] DATE OF SERVICE: 2018-10-23 02:18:53 IMAGES: [id number] EXAM: CT HEAD WITHOUT CONTRAST No acute brain parenchymal abnormality. No hemorrhage, mass or acute territorial infarct. Atrophy and minimal chronic small vessel ischemic changes. Small chronic infarct left cerebellum. Physiologic basal ganglia calcifications. No skull fracture. Clear visualized paranasal sinuses. Visualized mastoid air cells clear. One or more of the following dose reduction techniques were used: automated exposure control, adjustment of the mA and/or kV according to patient size, use of iterative reconstructive technique. THIS DOCUMENT HAS BEEN ELECTRONICALLY SIGNED Meenakshi Johnston M.D. 10/23/2018 03:[address] of C-Spine: THIS IS A PRELIMINARY REPORT FROM [facility] DATE OF SERVICE: 2018-10-23 02:16:29 IMAGES: [id number] EXAM: CT CERVICAL SPINE WITHOUT CONTRAST No acute fracture. Multilevel spondylosis. Minimal retrolisthesis C2 over C3, probably degenerative. Very minimal rotation C1-C2, probably positional. Scarring lung apices. One or more of the following dose reduction techniques were used: automated exposure control, adjustment of the mA and/or kV according to patient size, use of iterative reconstructive technique. THIS DOCUMENT HAS BEEN ELECTRONICALLY SIGNED Meenakshi Johnston M.D. 10/23/2018 03:[address] Lumbar Spine: THIS IS A PRELIMINARY REPORT FROM [facility] DATE OF SERVICE: 2018-10-23 02:21:30 IMAGES: [id number] EXAM: CT LUMBAR SPINE WITHOUT CONTRAST No acute fracture or malalignment. Multilevel spondylosis. No substantial canal or neural foraminal stenosis. Paraspinal muscle atrophy. Incidental collateral vessels right posterior pararenal space. 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 Diverticulosis colon. Hysterectomy. One or more of the following dose reduction techniques were used: automated exposure control, adjustment of the mA and/or kV according to patient size, use of iterative reconstructive technique. THIS DOCUMENT HAS BEEN ELECTRONICALLY SIGNED Meenakshi Johnston M.D. 10/23/2018 03:04 EST *DC/Admit/Observation/Transfer Diagnosis at time of Disposition: Fall in elderly patient, Pain of occiput Right shoulder pain Qualifiers: Chronicity: acute Qualified Code(s): M25.511 - Pain in right shoulder Left shoulder pain Qualifiers: Chronicity: acute Qualified Code(s): M25.512 - Pain in left shoulder - Discharge Dispostion Disposition: HOME Condition at time of disposition: Good Decision to Admit order: No - Referrals Referrals: Maryjane Hennessy MD [Primary Care Provider] - - Patient Instructions Printed Discharge Instructions: How to Prevent Falls Additional Instructions: You were seen today for pain to your head and shoulders after you feel. Your xrays did not show any broken or dislocated bones. You likely have mild muscle pain. You can take over the counter Tylenol as needed for pain. Take as directed on the package insert. Do not exceed the recommended dosage. Follow up with your primary care doctor within the next 3-4 days. You will need to call to make an appointment. The number is included in this packet. A copy of todays results are attached to this packet. Take it to the appointment so your doctor can review them. Go to the nearest emergency department if your condition worsens or you feel like you need additional emergency evaluation. - Post Discharge Activity
[2018-10-23 01:37] VITALS: BP 131/67; PULSE 90
[2018-10-23] MEDS ORDERED: ACETAMINOPHEN 325 MG TABLET (FP) ONE (01:42)
--- NOTE | 2018-10-23 01:59 | PDOC ---
Documentation entered by Anca Arguello SCRIBE, acting as scribe for Amrit Fletcher MD. Amrit Fletcher MD: This documentation has been prepared by the Saundra ruiz Xhesika, SCRIBE, under my direction and personally reviewed by me in its entirety. I confirm that the documentation accurately reflects all work, treatment, procedures, and medical decision making performed by me. Attending Attestation - Resident Resident Name: BishopKole - HPI HPI: 10/23/18 01:55 87-year-old Danish-speaking female brought in by EMS after a mechanical fall with head injury bilateral shoulder pain and right forearm pain. Patient and her family members are unsure whether patient lost consciousness the patient was able to stand up and bear weight after the fall. - Physicial Exam PE: 10/23/18 01:56 Patient is awake and alert, well-nourished, GCS-15 Normocephalic, + soft tissue swelling to the left occipital area without bony crepitus or step-offs PERRLA, EOMI Neck is supple, diffuse paraspinal and midline tenderness to palpation CTA RRR Abdomen soft nontender Bilateral shoulder joint tenderness to palpation with pain on abduction and adduction of the humerus bilaterally; + right mid forearm ecchymoses with minimal tenderness Pelvis is stable No focal neurological deficits - Medical Decision Making 10/23/18 01:58 Family patient is an 87-year-old female who presents with minor injuries after mechanical fall. Will obtain CT head/cervical spine/lumbar spine to rule out acute traumatic injury. We'll obtain bilateral shoulder x-rays. If no acute injury suspected patient to be discharged.
--- NOTE | 2018-10-23 03:08 | PDOC ---
*Physical Exam - Vital Signs Last Vital Signs Temp Pulse Resp BP Pulse Ox 98.3 F 90 18 131/67 95 10/23/18 01:11 10/23/18 03:06 10/23/18 01:11 10/23/18 03:06 10/23/18 03:06 ED Treatment Course - Medications Given in the ED: ED Medications Discontinued Medications Generic Name Dose Route Start Last Admin Trade Name Malick PRN Reason Stop Dose Admin Acetaminophen 650 mg 10/23/18 01:30 10/23/18 01:45 Tylenol - PO 10/23/18 01:31 650 mg ONCE ONE Administration Medical Decision Making - Medical Decision Making 10/23/18 03:08 Patient Name: TAMARA CALDERON THIS IS A PRELIMINARY REPORT FROM [facility] DATE OF SERVICE: 2018-10-23 02:21:30 IMAGES: 361 EXAM: CT LUMBAR SPINE WITHOUT CONTRAST No acute fracture or malalignment. Multilevel spondylosis. No substantial canal or neural foraminal stenosis. Paraspinal muscle atrophy. Incidental collateral vessels right posterior pararenal space. 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 Diverticulosis colon. Hysterectomy 10/23/18 04:58 Pt's pelvis looks normal P's shoulders look normal also; no fractures and no other findings. Pt is stable for discharge. *DC/Admit/Observation/Transfer Diagnosis at time of Disposition: Fall in elderly patient, Pain of occiput, Right shoulder pain, Left shoulder pain - Discharge Dispostion Disposition: HOME Condition at time of disposition: Good - Referrals Referrals: Maryjane Hennessy MD [Primary Care Provider] - - Patient Instructions Printed Discharge Instructions: How to Prevent Falls Additional Instructions: You were seen today for pain to your head and shoulders after you feel. Your xrays did not show any broken or dislocated bones. You likely have mild muscle pain. You can take over the counter Tylenol as needed for pain. Take as directed on the package insert. Do not exceed the recommended dosage. Follow up with your primary care doctor within the next 3-4 days. You will need to call to make an appointment. The number is included in this packet. A copy of todays results are attached to this packet. Take it to the appointment so your doctor can review them. Go to the nearest emergency department if your condition worsens or you feel like you need additional emergency evaluation. - Post Discharge Activity
== END 2018-10-23 07:14 | disposition home or self-care (01) ==
LOC: JER 00:43
DX: S09.8XXA Other specified injuries of head, initial encounter (principal); M54.5 Low back pain; M25.511 Pain in right shoulder; M25.512 Pain in left shoulder; W01.190A Fall on same level from slipping, tripping and stumbling with subsequent striking against furniture, initial encounter; Y93.01 Activity, walking, marching and hiking; Y92.038 Other place in apartment as the place of occurrence of the external cause; Y99.8 Other external cause status; I10 Essential (primary) hypertension; F41.9 Anxiety disorder, unspecified; Z87.19 Personal history of other diseases of the digestive system; Z99.89 Dependence on other enabling machines and devices
CPT/HCPCS: 70450-TC; 72125-TC; 72131-TC; 72170-TC-FY; 73030-TC-LT-FY; 73030-TC-RT-FY; 99282-25

== ENCOUNTER 2018-12-30 13:13 | Inpatient (IN) | payer OTHER ==
[2018-12-30 13:23] VITALS: BMI 30.2
--- NOTE | 2018-12-30 15:01 | PDOC ---
History of Present Illness - General Chief Complaint: Chest Pain Stated Complaint: ABNORMAL HEART RATE History Source: Patient Exam Limitations: No Limitations - History of Present Illness Initial Comments: 12/30/18 15:02 88YOF with h/o HTN, mitral prolapse w/ moderate regurgitation, anxiety, and previous diverticulitis who p/w left-sided chest discomfort and SOB, for which she had an EKG today showing new onset atrial fibrillation with rate of about [address] Hennessy called ahead to note the patient was coming into the ED. The family explains that the patient has been feeling ill with left lower chest discomfort and mild SOB since Wednesday, this has been worsening since then, and she was brought to the clinic today by family and had an EKG showing the A-fib. She has tried Gas-Ex for the chest pain without relief, but nothing else (denies having ASA or Tylenol or anything else). This has never happened to her before. Past History - Past Medical History Allergies/Adverse Reactions: Allergies Allergy/AdvReac Type Severity Reaction Status Date / Time No Known Allergies Allergy Verified 12/30/18 16:16 Home Medications: Ambulatory Orders Aspirin 81 mg PO DAILY #0 tab.chew 07/21/13 Cetirizine HCl [Zyrtec -] 10 mg PO DAILY 07/14/14 Polyethylene Glycol [Polyox Wsr-301] 1 gm MC DAILY 12/29/14 Buspirone HCl [Buspar -] 5 mg PO BID 02/27/16 Furosemide 20 mg PO DAILY 04/04/17 Midodrine HCl 7.5 mg PO TID 04/04/17 Ranitidine HCl 150 mg PO DAILY 04/04/17 L.acidoph,Paracasei, B.lactis [Probiotic] 1 cap PO DAILY 10/21/17 Ciprofloxacin [Cipro -] 500 mg PO Q12H #14 tablet 09/21/18 Gabapentin 100 mg PO BID 09/21/18 Acetaminophen [Tylenol .Regular Strength -] 650 mg PO Q6H PRN tablet 01/03/19 Apixaban [Eliquis -] 5 mg PO BID tablet 01/03/19 Apixaban [Eliquis -] 5 mg PO BID #60 tablet 01/03/19 Furosemide [Lasix -] 20 mg PO DAILY tablet 01/03/19 Methyl Salicylate/Menthol Oint [Analgesic [place] -] 1 applic TP BID applic Metoprolol Succinate [Toprol XL -] 50 mg PO DAILY tab.sr.24h 01/03/19 Metoprolol Succinate [Toprol XL -] 50 mg PO DAILY #30 tablet 01/03/19 Metoprolol Tartrate Injection [Lopressor Injection -] 5 mg IVPUSH Q4H PRN vial 01/03/19 Ranitidine [Zantac -] 150 mg PO DAILY tablet 01/03/19 Anemia: No Asthma: No 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) CVA: No COPD: No CHF: Yes Dementia: No Diabetes: No GI Disorders: Yes (DIVERTICULITIS) Disorders: No HTN: Yes Hypercholesterolemia: No Liver Disease: No Psychiatric Problems: Yes (anxiety?) Seizures: No Thyroid Disease: No - Surgical History Abdominal Surgery: Yes Appendectomy: No Cardiac Surgery: No Cholecystectomy: No Lung Surgery: No Neurologic Surgery: No Orthopedic Surgery: No - Immunization History Td Vaccination: Yes TDAP Vaccination: Yes Immunization Up to Date: Yes - Psycho Social/Smoking Cessation Hx Smoking Status: No Smoking History: Never smoked Have you smoked in the past 12 months: No Number of Cigarettes Smoked Daily: 0 Information on smoking cessation initiated: No Hx Alcohol Use: No Drug/Substance Use Hx: No Substance Use Type: None Hx Substance Use Treatment: No Review of Systems - Review of Systems Able to Perform ROS?: Yes Comments:: GEN: no fever, chills, night sweats, generalized weakness, malaise, or unintentional weight change HEENT: no ear pain, congestion, sore throat, rhinorrhea, nosebleed, vision change, or eye pain CV: chest pain, no palpitations, lightheadedness, syncope, edema, or exercise intolerance RESP: SOB, no cough, no wheezing GI: no abdominal pain, nausea, vomiting, diarrhea, constipation, appetite change , or white/black/bloody stool : no dysuria, hematuria, frequency, incontinence, retention, pruritis, bleeding, or discharge MSK: no muscle weakness or pain, no muscle wasting, no joint swelling or pain NEURO: no headache, seizure, vertigo, imbalance, numbness, tingling, focal weakness, or difficulty walking/talking PSYCH: no insomnia, behavior change, SI, HI, or substance use SKIN: no prutitis, excessive dryness, jaundice, rash, cuts, or unexplained bruises ROS otherwise negative except as noted in HPI *Physical Exam - Vital Signs Last Vital Signs Temp Pulse Resp BP Pulse Ox 98.0 F 84 17 133/80 93 L 12/30/18 13:16 12/30/18 13:16 12/30/18 13:16 12/30/18 13:16 12/30/18 13:16 - Physical Exam Comments: 12/30/18 16:48 GENERAL: elderly and pleasant and Kinyarwanda speaking, accompanied by family, well- appearing, A/Ox4, no distress, answers questions appropriately HEENT: PERRLA, EOMI, moist mucous membranes NECK/BACK: no midline ttp, no spinal stepoff or deformity, no hematoma, full ROM , neck supple CARDIOVASCULAR: irregularly irregular, not tachycardic, normal S1S2, no MGR, strong peripheral pulses, capillary refill <2 seconds, extremities wwp, no edema LUNGS/RESPIRATORY: no respiratory distress, CTAB GI/ABDOMEN: symmetric [id number], normoactive BS, soft, no ttp, no midline pulsatile masses : no CVA tenderness EXTREMITIES: no muscle atrophy, no acute deformity SKIN: warm and dry, no pallor, no jaundice, no rash, no bruising, no skin breakdown, no cuts, no lesions NEUROLOGICAL: GCS 15, CN II-XII grossly intact, 5/5 strength proximally and distally, no facial droop Heart Score/ECG Review - History History: Slightly suspicious - Electrocardiogram EKG: Non specific repolarization disturbance - Age Age: >/= 65 - Risk Factors Risk Factors Heart Score: Yes Hx Hypercholesterolemia Based on the list above the patient has:: 1-2 risk factors - Troponin Troponin: </= normal limit - Score Heart Score - Total: 4 #1 12/30/18 13:25 A-fib with rate 95, normal axis, no QT prolongation, no ischemic ST-T changes ED Treatment Course - LABORATORY CBC & Chemistry Diagram: 01/03/19 09:58 01/03/19 05:35 Medical Decision Making - Medical Decision Making 12/30/18 15:13 88YOF p/w new onset A-fib detected on clinic EKG in the setting of recent chest pain and SOB. Initial Vital Signs Temp Pulse Resp BP Pulse Ox 98.0 F 84 17 133/80 93 L 12/30/18 13:16 12/30/18 13:16 12/30/18 13:16 12/30/18 13:16 12/30/18 13:16 Exam: As noted in Physical Exam section. DDX IBNLT: tachyarrhythmia (e.g. SVT, re-entrant tachycardia, WPW, Brugada, long QT, AF/AFL w/ RVR, MAT, ventricular dysrhythmia), ischemia (ACS), structural heart condition (MVP, mitral stenosis, atrial enlargement, HOCM), anxiety/panic, hypoxia, anemia (e.g. hemorrhage from heavy menstruation, ruptured ectopic, etc), PE, PTX, bronchitis/PNA, sepsis/shock, tamponade, metabolic (e.g. DKA, hypoglycemia), thyroid condition, catecholamine surge ( e.g. pheochromocytoma), anxiety/panic disorder, medication effect, substance use , etc. W/U ordered: EKG, CXR, Labs as noted below TX ordered: ASA 324 EKG: Reviewed; results as noted in ECG Review section. The patient is not in RVR, but has mild vague chest pain and SOB x 2 days. ASA 324 is given. RAD/CHEST X-RAY PORTABLE* Portable chest: Cough. A single AP view of the chest reveals no significant change since 10/20/2017. There is a scoliosis with convexity to the right, clear lungs, prominent knob, normal hector and prominent heart. There is a scoliosis with degenerative changes. The angles are sharp. The soft tissues are intact. Correlation recommended. Laboratory Tests 12/30/18 12/30/18 12/30/18 15:15 15:15 15:15 WBC 7.1 RBC 4.09 Hgb 13.6 Hct 40.7 MCV 99.6 H MCH 33.2 MCHC 33.3 RDW 13.8 Plt Count 266 MPV 8.1 D Absolute Neuts (auto) 4.6 Neutrophils % 64.0 Lymphocytes % 25.0 D Monocytes % 9.3 Eosinophils % 1.1 D Basophils % 0.6 Nucleated RBC % 0 Sodium 135 L Potassium 4.4 Chloride 102 Carbon Dioxide 28 Anion Gap 4 L BUN 16.6 Creatinine 0.7 Est GFR (CKD-EPI)AfAm 90.93 Est GFR (CKD-EPI)NonAf 78.45 Random Glucose 100 Calcium 9.7 Total Bilirubin 0.4 AST 20 ALT 27 Alkaline Phosphatase 62 Creatine Kinase 32 Troponin I < 0.02 Total Protein 6.6 Albumin 3.4 TSH 0.85 ADMIT The Pt is unsafe for discharge at this time. They require further hospital observation, workup, and treatment. 12/30/18 15:[address] Vega and patient is admitted to Dr. Hennessy's service. Consult order has been placed to Dr. Abebe. Discharge - Discharge Information Problems reviewed: Yes Clinical Impression/Diagnosis: SOB (shortness of breath), Atrial fibrillation by electrocardiogram Chest pain Qualifiers: Chest pain type: unspecified Qualified Code(s): R07.9 - Chest pain, unspecified Condition: Guarded - Admission Yes - Follow up/Referral - Patient Discharge Instructions - Post Discharge Activity
[2018-12-30] MEDS ORDERED: ASPIRIN 81 MG CHEWABLE TABLETS PO ONE (15:38)
[2018-12-30] MEDS ORDERED: ASPIRIN 81 MG CHEWABLE TABLETS ONE (15:45)
[2018-12-30 16:09] LABS: ALBUMIN 3.4 g/dl (3.4-5.0); BASO % 0.6 % (0-2.0); BILIRUBIN,TOTAL 0.4 mg/dL (0.2-1); BLOOD UREA NITROGEN 16.6 mg/dL (7-18); CALCIUM 9.7 mg/dL (8.5-10.1); CREATININE 0.7 mg/dL (0.55-1.3); EOS % 1.1 % (0-4.5); HEMATOCRIT 40.7 % (32.4-45.2); HEMOGLOBIN 13.6 GM/dL (10.7-15.3); MCH 33.2 pg (25.7-33.7); MCHC 33.3 g/dl (32.0-36.0); MEAN CELL VOLUME 99.6 fl (80-96); MEAN PLT VOLUME 8.1 fl (7.5-11.1); MONO % 9.3 % (3.8-10.2); PLATELET COUNT 266 K/MM3 (134-434); POTASSIUM 4.4 mmol/L (3.5-5.1); RBC 4.09 M/mm3 (3.60-5.2); RDW 13.8 % (11.6-15.6); TOT PROT 6.6 g/dl (6.4-8.2); WHITE BLOOD COUNT 7.1 K/mm3 (4.0-10.0)
--- NOTE | 2018-12-30 16:28 | HP ---
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 Cardiovascular: Yes: CAD, Mitral Insufficiency (recent evaluation) Psych: Yes: Anxiety - Past Surgical History Past Surgical History: Yes: None - Smoking History Smoking history: Never smoked Have you smoked in the past 12 months: No Aproximately how many cigarettes per day: 0 - Alcohol/Substance Use Hx Alcohol Use: No History of Substance Use: reports: None - Social History ADL: Family Assistance History of Recent Travel: No Home Medications - Allergies Allergies/Adverse Reactions: Allergies Allergy/AdvReac Type Severity Reaction Status Date / Time No Known Allergies Allergy Verified 12/30/18 16:16 - Home Medications Home Medications: Ambulatory Orders Aspirin 81 mg PO DAILY #0 tab.chew 07/21/13 Cetirizine HCl [Zyrtec -] 10 mg PO DAILY 07/14/14 Polyethylene Glycol [Polyox Wsr-301] 1 gm MC DAILY 12/29/14 Buspirone HCl [Buspar -] 5 mg PO BID 02/27/16 Furosemide 20 mg PO DAILY 04/04/17 Midodrine HCl 7.5 mg PO TID 04/04/17 Ranitidine HCl 150 mg PO DAILY 04/04/17 L.acidoph,Paracasei, B.lactis [Probiotic] 1 cap PO DAILY 10/21/17 Ciprofloxacin [Cipro -] 500 mg PO Q12H #14 tablet 09/21/18 Gabapentin 100 mg PO BID 09/21/18 metroNIDAZOLE [Flagyl -] 500 mg PO Q8H #21 tablet 09/21/18 Review of Systems - Review of Systems Cardiovascular: reports: Chest Pain Physical Examination Vital Signs: Vital Signs Temperature 98.0 F 12/30/18 13:16 Pulse Rate 84 12/30/18 13:16 Respiratory Rate 17 12/30/18 13:16 Blood Pressure 133/80 12/30/18 13:16 O2 Sat by Pulse Oximetry (%) 93 L 12/30/18 13:16 Constitutional: Yes: Calm Cardiovascular: Yes: Pulse Irregular, Murmur, S1, S2 Respiratory: Yes: CTA Bilaterally Gastrointestinal: Yes: Normal Bowel Sounds, Soft Edema: No Neurological: Yes: Alert, Oriented Labs: CBC, BMP 12/30/18 15:15 12/30/18 15:15 Problem List - Problems (1) Atrial fibrillation by electrocardiogram Assessment/Plan: telemetry tsh rate control iv heparin cardiology eval echo Code(s): I48.91 - UNSPECIFIED ATRIAL FIBRILLATION
[2018-12-30] MEDS ORDERED: HEPARIN NA (PORCINE) 5,000 UNITS/ML 1ML VIAL IVPUSH PRN ×2 (16:41)
[2018-12-30] MEDS ORDERED: HEPARIN INFUSION - 25,000 UNITS/500 ML INFUS.BAG IVPB ONE (17:08)
[2018-12-30] MEDS: HEPARIN INFUSION - 25,000 UNITS/500 ML INFUS.BAG IV SCH (18:03)
[2018-12-31] MEDS ORDERED: ACETAMINOPHEN 500 MG TABLET (FP) PO ONE (03:11)
[2018-12-31] MEDS ORDERED: ACETAMINOPHEN 325 MG TABLET (FP) ONE (03:11)
[2018-12-31] MEDS ORDERED: ACETAMINOPHEN 325 MG TABLET (FP) PO PRN (06:08)
[2018-12-31 07:47] LABS: HEMATOCRIT 36.6 % (32.4-45.2); HEMOGLOBIN 12.6 GM/dL (10.7-15.3); MCH 33.8 pg (25.7-33.7); MCHC 34.4 g/dl (32.0-36.0); MEAN CELL VOLUME 98.5 fl (80-96); MEAN PLT VOLUME 7.7 fl (7.5-11.1); PLATELET COUNT 240 K/MM3 (134-434); RBC 3.72 M/mm3 (3.60-5.2); RDW 13.9 % (11.6-15.6); WHITE BLOOD COUNT 6.9 K/mm3 (4.0-10.0)
--- NOTE | 2018-12-31 08:49 | PN ---
Progress Note, Physician Chief Complaint: EVENTS AND NOTES REVIEWED PATIENT DENIES CP HAS SOME SOB NO DIZZINESS AT THIS MOMENT. - Current Medication List Current Medications: Active Medications Acetaminophen (Tylenol -) 650 mg PO Q6H PRN PRN Reason: PAIN LEVEL 6-10 Heparin Sodium (Porcine) (Heparin -) 1,000 unit IVPUSH PRN PRN PRN Reason: Heparin Heparin Sodium (Porcine) (Heparin -) 5,000 unit IVPUSH PRN PRN PRN Reason: Heparin Heparin Sodium/Dextrose (Heparin Infusion -) 25,000 units in 500 mls @ 16 mls/ hr IV TITR FANI; Protocol Last Admin: 12/30/18 18:03 Dose: 800 units/hr, 16 mls/hr Metoprolol Succinate (Toprol Xl -) 12.5 mg PO DAILY FANI Ranitidine HCl (Zantac -) 150 mg PO DAILY FANI - Objective Vital Signs: Vital Signs Temperature 98.4 F 12/31/18 07:51 Pulse Rate 100 H 12/31/18 07:51 Respiratory Rate 20 12/31/18 07:51 Blood Pressure 133/78 12/31/18 07:51 O2 Sat by Pulse Oximetry (%) 97 12/31/18 07:51 Constitutional: Yes: Mild Distress Cardiovascular: Yes: Pulse Irregular Respiratory: Yes: Diminished, On Nasal O2 Gastrointestinal: Yes: Soft Genitourinary: Yes: Other Neurological: Yes: Pre-Existing Deficit, Weakness Labs: CBC, BMP 12/31/18 07:05 Problem List - Problems (1) Atrial fibrillation by electrocardiogram Code(s): I48.91 - UNSPECIFIED ATRIAL FIBRILLATION (2) Chest pain Code(s): R07.9 - CHEST PAIN, UNSPECIFIED Qualifiers: Chest pain type: unspecified Qualified Code(s): R07.9 - Chest pain, unspecified (3) Shortness of breath Code(s): R06.02 - SHORTNESS OF BREATH (4) Abdominal pain Code(s): R10.9 - UNSPECIFIED ABDOMINAL PAIN (5) Anxiety Code(s): F41.9 - ANXIETY DISORDER, UNSPECIFIED (6) Mitral valve disease Code(s): I05.9 - RHEUMATIC MITRAL VALVE DISEASE, UNSPECIFIED (7) Parkinson disease Code(s): G20 - PARKINSON'S DISEASE (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
[2018-12-31 09:58] LABS: ALBUMIN 3.2 g/dl (3.4-5.0); ALK PHOS 57 U/L (45-117); ANION GAP 8 MMOL/L (8-16); BILIRUBIN,TOTAL 0.5 mg/dL (0.2-1); BLOOD UREA NITROGEN 16.2 mg/dL (7-18); CALCIUM 8.6 mg/dL (8.5-10.1); CHLORIDE 102 mmol/L (98-107); CHOLESTEROL 185 mg/dL (50-200); CO2 25 mmol/L (21-32); CREATININE 0.6 mg/dL (0.55-1.3); GLUCOSE,RANDOM 121 mg/dL (74-106); HDL CHOLESTEROL 76 mg/dL (40-60); LDL CHOLESTEROL (ONLY SJRH) 93 mg/dL (5-100); N-TERMINAL BNP 1515.7 pg/ml (5-450); PHOSPHOROUS 3.5 mg/dL (2.5-4.9); SGOT/AST 22 U/L (15-37); SGPT/ALT 25 U/L (13-61); SODIUM 135 mmol/L (136-145); TOT PROT 6.3 g/dl (6.4-8.2); TRIGLYCERIDES 45 mg/dL (0-150)
[2018-12-31] MEDS ORDERED: METOPROLOL TARTRATE 5 MG/5 ML VIAL IVPUSH PRN (11:33)
--- NOTE | 2018-12-31 11:37 | EKG ---
Test Reason : Blood Pressure : / mmHG Vent. Rate : 095 BPM Atrial Rate : 120 BPM P-R Int : 000 ms QRS Dur : 066 ms QT Int : 334 ms P-R-T Axes : 000 002 007 degrees QTc Int : 419 ms POOR DATA QUALITY, INTERPRETATION MAY BE ADVERSELY AFFECTED ATRIAL FIBRILLATION ABNORMAL ECG WHEN COMPARED WITH ECG OF 21-OCT-2017 09:29, ATRIAL FIBRILLATION HAS REPLACED SINUS RHYTHM VENT. RATE HAS INCREASED BY 34 BPM Confirmed by Shanita Ibarra ([id number]) on 12/31/2018 11:37:07 AM Referred By: Confirmed By:Shanita Ibarra
--- NOTE | 2018-12-31 11:37 | EKG ---
Test Reason : Blood Pressure : / mmHG Vent. Rate : 089 BPM Atrial Rate : 258 BPM P-R Int : 000 ms QRS Dur : 064 ms QT Int : 356 ms P-R-T Axes : 000 006 -03 degrees QTc Int : 433 ms ATRIAL FIBRILLATION ABNORMAL ECG WHEN COMPARED WITH ECG OF 21-OCT-2017 09:29, ATRIAL FIBRILLATION HAS REPLACED SINUS RHYTHM T WAVE AMPLITUDE HAS DECREASED IN ANTERIOR LEADS Confirmed by Shanita Ibarra ([id number]) on 12/31/2018 11:37:27 AM Referred By: Confirmed By:Shanita Ibarra
--- NOTE | 2018-12-31 11:39 | CON.CARD ---
Consult Consult Specialty:: Cardiology Referred by:: Medicine Reason for Consultation:: atrial fibrillation - History of Present Illness Chief Complaint: afib History of Present Illness: 88F hx CAD p/w shortness of breath, chest discomfort. Went to PMD and EKG showed atrial fibrillation. Currently complaining of pain all over body including chest, shoulders, arms, legs. 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 Cardio/Vascular: Yes: CAD, Mitral Insufficiency (recent evaluation) Psych: Yes: Anxiety - Past Surgical History Past Surgical History: Yes: None - Alcohol/Substance Use Hx Alcohol Use: No History of Substance Use: reports: None - Smoking History Smoking history: Never smoked Have you smoked in the past 12 months: No Aproximately how many cigarettes per day: 0 - Social History ADL: Family Assistance History of Recent Travel: No Home Medications - Allergies Allergies/Adverse Reactions: Allergies Allergy/AdvReac Type Severity Reaction Status Date / Time No Known Allergies Allergy Verified 12/30/18 16:16 - Home Medications Home Medications: Ambulatory Orders Aspirin 81 mg PO DAILY #0 tab.chew 07/21/13 Cetirizine HCl [Zyrtec -] 10 mg PO DAILY 07/14/14 Polyethylene Glycol [Polyox Wsr-301] 1 gm MC DAILY 12/29/14 Buspirone HCl [Buspar -] 5 mg PO BID 02/27/16 Furosemide 20 mg PO DAILY 04/04/17 Midodrine HCl 7.5 mg PO TID 04/04/17 Ranitidine HCl 150 mg PO DAILY 04/04/17 L.acidoph,Paracasei, B.lactis [Probiotic] 1 cap PO DAILY 10/21/17 Ciprofloxacin [Cipro -] 500 mg PO Q12H #14 tablet 09/21/18 Gabapentin 100 mg PO BID 09/21/18 metroNIDAZOLE [Flagyl -] 500 mg PO Q8H #21 tablet 09/21/18 Family Medical History Family History: Unremarkable Review of Systems - Review of Systems Constitutional: reports: No Symptoms Eyes: reports: No Symptoms HENT: reports: No Symptoms Neck: reports: No Symptoms Cardiovascular: reports: No Symptoms Respiratory: reports: No Symptoms Gastrointestinal: reports: No Symptoms Musculoskeletal: reports: Back Pain, Joint Pain Integumentary: reports: No Symptoms Neurological: reports: No Symptoms Endocrine: reports: No Symptoms Hematology/Lymphatic: reports: No Symptoms Psychiatric: reports: No Symptoms Vital Signs: Vital Signs Temperature 98.0 F 12/31/18 09:40 Pulse Rate 104 H 12/31/18 09:40 Respiratory Rate 18 12/31/18 09:40 Blood Pressure 121/89 12/31/18 09:40 O2 Sat by Pulse Oximetry (%) 95 12/31/18 09:40 Constitutional: Yes: No Distress, Calm Eyes: Yes: Conjunctiva Clear, EOM Intact HENT: Yes: Atraumatic, Normocephalic Neck: Yes: Supple, Trachea Midline Respiratory: Yes: Regular, CTA Bilaterally Gastrointestinal: Yes: Normal Bowel Sounds, Soft Cardiovascular: Yes: Pulse Irregular JVD: No Heart Sounds: Yes: S1, S2 Extremities: No: Cold Edema: No Integumentary: No: Jaundice Neurological: Yes: Alert, Oriented Psychiatric: No: Agitated - Other Data Labs, Other Data: CBC, BMP 12/31/18 07:05 12/31/18 07:05 Troponin, BNP 12/30/18 12/31/18 15:15 07:05 Troponin I < 0.02 < 0.02 B-Natriuretic Peptide 1515.7 H Troponin, BNP 12/30/18 12/31/18 15:15 07:05 Troponin I < 0.02 < 0.02 B-Natriuretic Peptide 1515.7 H Assessment/Plan EKG: afib, 89 bpm, no ischemic changes CXR: no congestion tele: rate 80s-90s, occasional 120s atrial fibrillation - new onset - [id number] warrants AC, on heparin gtt for now - metoprolol this AM, monitor on tele - uptitrate as tolerated, monitor on tele - echo ordered shortness of breath, chest pain - complains of chest pain along with whole body pain including back, extremities - trop neg x2, EKG no ischemic changes, unlikely ACS - CXR no congestion, BNP elevated - echo is pending - cont home lasix 20 mg daily for now, appears euvolemic CAD - patient not sure of details - holding aspirin, starting AC as above
[2018-12-31] MEDS: metoPROLOL SUCCINATE 25 MG TAB.SR.24H (FP) PO SCH (11:53)
[2018-12-31] MEDS: RANITIDINE HCL 150 MG TABLET (FP) PO SCH (11:53)
[2018-12-31] MEDS ORDERED: FUROSEMIDE 40 MG/4 ML INJECTABLE VIAL ONE (11:57)
[2018-12-31] MEDS: FUROSEMIDE 20 MG TABLET (FP) PO SCH (12:24)
--- NOTE | 2018-12-31 13:55 | PDOC ---
Documentation entered by Tri Martinez SCRIBE, acting as scribe for Suhail Linares MD. Suhail Linares MD: This documentation has been prepared by the Michelle ruiz Adrianna, SCRIBE, under my direction and personally reviewed by me in its entirety. I confirm that the documentation accurately reflects all work, treatment, procedures, and medical decision making performed by me. Attending Attestation - Resident Resident Name: Sheila Villanueva - ED Attending Attestation I have performed the following: I have examined & evaluated the patient, The case was reviewed & discussed with the resident, I agree w/resident's findings & plan, Exceptions are as noted - HPI HPI: The patient is an 88 year old female, with a significant PMH of HTN, mitral prolapse w/ moderate regurgitation, anxiety, and previous diverticulitis, who presents to the ED for evaluation of chest pain and SOB for 2 days. She notes progressively worsening left-sided chest discomfort with SOB. Patient was seen in Dr. Washburn office earlier today, where her ECG demonstrated new onset Afib with a rate of ~100. Her PCP advised she come to the ED for further evaluation. Allergies: NKA, NKDA Surgical History: Abdominal surgery Social History: Denies EtOH, tobacco, or illicit drug use PCP: Dr. Hennessy - Physicial Exam PE: 12/30/18 16:49 GENERAL: The patient is awake, alert, and fully oriented, Nontoxic - in no acute distress. HEAD: Normocephalic, atraumatic. EYES: extraocular movements intact, sclera anicteric, conjunctiva clear. ENT: Normal voice, Moist mucous membranes. NECK: Normal range of motion, supple LUNGS: Breath sounds equal, clear to auscultation bilaterally. No wheezes, no rhonchi, no rales. HEART: iregulary irregular ABDOMEN: Soft, nontender, No guarding, no rebound. No CVA tenderness EXTREMITIES: Normal range of motion, no edema. NEUROLOGICAL: No facial assymetry, Normal speech, PSYCH: Normal mood, normal affect. SKIN: Warm, Dry, normal turgor, - Medical Decision Making rate controlled afib will admit for further managemnt and workup of new afib
[2018-12-31] MEDS ORDERED: SODIUM CHLORIDE 0.9% 500 ML INFUS.BAG IV ONE (14:33)
[2018-12-31] MEDS ORDERED: SODIUM CHLORIDE 250 ML IV STA (14:34)
[2018-12-31] MEDS ORDERED: SODIUM CHLORIDE 1,000 ML IV SCH ×2 (14:45)
[2018-12-31] MEDS: HEPARIN INFUSION - 25,000 UNITS/500 ML INFUS.BAG IV SCH (18:23)
--- NOTE | 2018-12-31 18:28 | CON.NEP ---
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 Cardio/Vascular: Yes: CAD, Mitral Insufficiency (recent evaluation) ...: No Psych: Yes: Anxiety - Past Surgical History Past Surgical History: Yes: None - Alcohol/Substance Use Hx Alcohol Use: No History of Substance Use: reports: None - Smoking History Smoking history: Never smoked Have you smoked in the past 12 months: No Aproximately how many cigarettes per day: 0 - Social History ADL: Family Assistance History of Recent Travel: No Home Medications - Allergies Allergies/Adverse Reactions: Allergies Allergy/AdvReac Type Severity Reaction Status Date / Time No Known Allergies Allergy Verified 12/30/18 16:16 - Home Medications Home Medications: Ambulatory Orders Aspirin 81 mg PO DAILY #0 tab.chew 07/21/13 Cetirizine HCl [Zyrtec -] 10 mg PO DAILY 07/14/14 Polyethylene Glycol [Polyox Wsr-301] 1 gm MC DAILY 12/29/14 Buspirone HCl [Buspar -] 5 mg PO BID 02/27/16 Furosemide 20 mg PO DAILY 04/04/17 Midodrine HCl 7.5 mg PO TID 04/04/17 Ranitidine HCl 150 mg PO DAILY 04/04/17 L.acidoph,Paracasei, B.lactis [Probiotic] 1 cap PO DAILY 10/21/17 Ciprofloxacin [Cipro -] 500 mg PO Q12H #14 tablet 09/21/18 Gabapentin 100 mg PO BID 09/21/18 Nephrology Consult - Height Height: 4 ft 11 in - Weight Weight: 150 lb - BMI Body Mass Index (BMI): 30.2 - Lab Results CBC,BMP: CBC, BMP 12/31/18 07:05 12/31/18 07:05 Anion Gap: Anion Gap Anion Gap 8 MMOL/L (8-16) 12/31/18 07:05 - Physical Examination Vital Signs: Vital Signs Temperature 97.8 F 12/31/18 16:18 Pulse Rate 75 12/31/18 16:18 Respiratory Rate 22 H 12/31/18 16:18 Blood Pressure 125/92 12/31/18 16:18 O2 Sat by Pulse Oximetry (%) 97 12/31/18 16:14 Assessment/Plan Hyponatremia seems euvolemic probably related to diuretic tx and heart failure Afib 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
[2018-12-31] MEDS: METHYL SALICYLATE/MENTHOL OINT 30 GM TUBE TP SCH (21:32)
[2018-12-31] MEDS: SODIUM CHLORIDE 1,000 ML IV SCH (21:32)
[2019-01-01] MEDS ORDERED: POLYETHYLENE GLYCOL 3350 119 GM BTL PO ONE (06:48)
[2019-01-01] MEDS: SODIUM CHLORIDE 1,000 ML IV SCH ×2 (06:54→18:28)
[2019-01-01] MEDS: METHYL SALICYLATE/MENTHOL OINT 30 GM TUBE TP SCH (09:52)
[2019-01-01] MEDS: metoPROLOL SUCCINATE 25 MG TAB.SR.24H (FP) PO SCH (09:55)
[2019-01-01] MEDS: FUROSEMIDE 20 MG TABLET (FP) PO SCH (09:56)
[2019-01-01] MEDS: RANITIDINE HCL 150 MG TABLET (FP) PO SCH (09:56)
[2019-01-01 10:33] LABS: HEMATOCRIT 37.1 % (32.4-45.2); HEMOGLOBIN 12.5 GM/dL (10.7-15.3); MCH 33.4 pg (25.7-33.7); MCHC 33.6 g/dl (32.0-36.0); MEAN CELL VOLUME 99.2 fl (80-96); MEAN PLT VOLUME 8.4 fl (7.5-11.1); PLATELET COUNT 249 K/MM3 (134-434); RBC 3.74 M/mm3 (3.60-5.2); RDW 13.9 % (11.6-15.6); WHITE BLOOD COUNT 7.8 K/mm3 (4.0-10.0)
--- NOTE | 2019-01-01 10:34 | CON.PULM ---
Consult Consult Specialty:: PULM/CCM Referred by:: MELVI Reason for Consultation:: SOB - History of Present Illness Chief Complaint: SOB History of Present Illness: 88 F, HTN, Mitral prolapse w/ moderate regurgitation, anxiety, and diverticulitis. Admitted via the ER due to chest discomfort and SOB. EKG revealed new onset AFib. She reports left lower chest discomfort and SOB since Wednesday. No travel history or sick contacts. No fever or chills. No cough or sputum production. No night sweats or hemoptysis. 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) Pulmonary: No: Asthma, Bronchitis, Cancer, COPD, O2 Dependent, Pneumonia, Previously Intubated, Pulmonary Embolus, Pulmonary Fibrosis, Sleep Apnea ...: No Psych: Yes: Anxiety - Past Surgical History Past Surgical History: Yes: None - Alcohol/Substance Use Hx Alcohol Use: No History of Substance Use: reports: None - Smoking History Smoking history: Never smoked Have you smoked in the past 12 months: No Aproximately how many cigarettes per day: 0 - Social History ADL: Family Assistance History of Recent Travel: No Home Medications - Allergies Allergies/Adverse Reactions: Allergies Allergy/AdvReac Type Severity Reaction Status Date / Time No Known Allergies Allergy Verified 12/30/18 16:16 - Home Medications Home Medications: Ambulatory Orders Aspirin 81 mg PO DAILY #0 tab.chew 07/21/13 Cetirizine HCl [Zyrtec -] 10 mg PO DAILY 07/14/14 Polyethylene Glycol [Polyox Wsr-301] 1 gm MC DAILY 12/29/14 Buspirone HCl [Buspar -] 5 mg PO BID 02/27/16 Furosemide 20 mg PO DAILY 04/04/17 Midodrine HCl 7.5 mg PO TID 04/04/17 Ranitidine HCl 150 mg PO DAILY 04/04/17 L.acidoph,Paracasei, B.lactis [Probiotic] 1 cap PO DAILY 10/21/17 Ciprofloxacin [Cipro -] 500 mg PO Q12H #14 tablet 09/21/18 Gabapentin 100 mg PO BID 09/21/18 Review of Systems - Review of Systems Constitutional: denies: Chills, Fever, Malaise, Night Sweats Eyes: reports: No Symptoms HENT: reports: No Symptoms Neck: reports: No Symptoms Cardiovascular: reports: Chest Pain, Shortness of Breath. denies: Edema, Palpitations Respiratory: reports: SOB, SOB on Exertion. denies: Cough, Exercise Intolerance , Hemoptysis, Orthopnea, PND, Snoring, Wheezing Gastrointestinal: reports: No Symptoms Genitourinary: reports: No Symptoms Breasts: reports: No Symptoms Reported Musculoskeletal: reports: No Symptoms Integumentary: reports: No Symptoms Neurological: reports: No Symptoms Endocrine: reports: No Symptoms Hematology/Lymphatic: reports: No Symptoms Psychiatric: reports: No Symptoms Physical Exam Vital Sings: Vital Signs Temperature 98.6 F 12/31/18 23:00 Pulse Rate 75 01/01/19 08:39 Respiratory Rate 23 H 01/01/19 08:39 Blood Pressure 119/64 01/01/19 08:39 O2 Sat by Pulse Oximetry (%) 96 12/31/18 21:00 Constitutional: Yes: No Distress, Calm Eyes: Yes: Conjunctiva Clear, EOM Intact HENT: Yes: Atraumatic, Normocephalic Neck: Yes: Supple, Trachea Midline Cardiovascular: Yes: Pulse Irregular Respiratory: Yes: CTA Bilaterally, Diminished. No: Accessory Muscle Use, Cough , Rales, Rhonchi, SOB, SOB on Exertion, Stridor, Tachypnea, Wheezes ...Inspection: Yes: WNL ...Clubbing: No Gastrointestinal: Yes: Normal Bowel Sounds, Soft, Abdomen, Obese Renal/: Yes: WNL Musculoskeletal: Yes: WNL Extremities: Yes: WNL Edema: No Peripheral Pulses WNL: Yes Integumentary: Yes: WNL Neurological: Yes: WNL, Alert, Oriented ...Motor Strength: WNL Psychiatric: Yes: WNL, Alert, Oriented Labs: CBC, BMP 12/31/18 07:05 Imaging - Results Chest X-ray: Report Reviewed, Image Reviewed Problem List - Problems (1) Atrial fibrillation by electrocardiogram Code(s): I48.91 - UNSPECIFIED ATRIAL FIBRILLATION (2) Chest pain Code(s): R07.9 - CHEST PAIN, UNSPECIFIED Qualifiers: Chest pain type: unspecified Qualified Code(s): R07.9 - Chest pain, unspecified (3) Shortness of breath Code(s): R06.02 - SHORTNESS OF BREATH (4) Anxiety Code(s): F41.9 - ANXIETY DISORDER, UNSPECIFIED (5) Hyperlipidemia Code(s): E78.5 - HYPERLIPIDEMIA, UNSPECIFIED (6) Mitral valve disease Code(s): I05.9 - RHEUMATIC MITRAL VALVE DISEASE, UNSPECIFIED (7) Dyspnea Code(s): R06.00 - DYSPNEA, UNSPECIFIED Assessment/Plan IMP: Dyspnea related to New Onest AFib Do not suspect Respiratory tract infection No specific history consistent with OSAS but should be screened PLAN: Rate control with BB IV Heparin for AC O2 as needed Monitor off ABX ECHO Cardiology evaluation noted Will follow Thank you. Dr Lay
[2019-01-01 10:35] LABS: HYALINE CASTS 13 /lpf (0-8); URINE APPEARANCE CLOUDY; URINE BACTERIA 153.6 /hpf (NEGATIVE); URINE BILIRUBIN NEGATIVE (NEGATIVE); URINE COLOR YELLOW; URINE GLUCOSE (UA) NEGATIVE (NEGATIVE); URINE KETONE TRACE (NEGATIVE); URINE LEUK ESTERASE 3+ (NEGATIVE); URINE NITRITE NEGATIVE (NEGATIVE); URINE PROTEIN TRACE (NEGATIVE); URINE UROBILINOGEN 0.2 mg/dL (0.2-1.0); URINE WBC 84 /hpf (0-5)
--- NOTE | 2019-01-01 11:53 | PN ---
Progress Note, Physician Chief Complaint: ASLEP COMFORTABLE SEEN THIS MORNING IN ICU PT'S BP DROPPED YESTERDAY NIGHT FLUID CHALLENGE GIVEN AND PATIENT BP INCREASED NOW ON MAINTENANCE IVF - Current Medication List Current Medications: Active Medications Acetaminophen (Tylenol -) 650 mg PO Q6H PRN PRN Reason: PAIN LEVEL 6-10 Last Admin: 01/01/19 09:56 Dose: 650 mg Furosemide (Lasix -) 20 mg PO DAILY [facility] Last Admin: 01/01/19 09:56 Dose: 20 mg Heparin Sodium (Porcine) (Heparin -) 1,000 unit IVPUSH PRN PRN PRN Reason: Heparin Heparin Sodium (Porcine) (Heparin -) 5,000 unit IVPUSH PRN PRN PRN Reason: Heparin Heparin Sodium/Dextrose (Heparin Infusion -) 25,000 units in 500 mls @ 16 mls/ hr IV TITR [facility]ANI; Protocol Last Titration: 01/01/19 08:41 Dose: 700 units/hr, 14 mls/hr Sodium Chloride (Normal Saline -) 1,000 mls @ 83 mls/hr IV ASDIR [facility] Last Admin: 01/01/19 06:54 Dose: 83 mls/hr Methyl Salicylate (Nick-Craft -) 1 applic TP BID [facility] Last Admin: 01/01/19 09:52 Dose: 1 applic Metoprolol Succinate (Toprol Xl -) 12.5 mg PO DAILY [facility] Last Admin: 01/01/19 09:55 Dose: 12.5 mg Metoprolol Tartrate (Lopressor Injection -) 5 mg IVPUSH Q4H PRN PRN Reason: HYPERTENSION Ranitidine HCl (Zantac -) 150 mg PO DAILY [facility] Last Admin: 01/01/19 09:56 Dose: 150 mg - Objective Vital Signs: Vital Signs Temperature 98.6 F 12/31/18 23:00 Pulse Rate 75 01/01/19 08:39 Respiratory Rate 23 H 01/01/19 08:39 Blood Pressure 119/64 01/01/19 08:39 O2 Sat by Pulse Oximetry (%) 96 12/31/18 21:00 Constitutional: Yes: No Distress Eyes: Yes: WNL HENT: Yes: WNL Neck: Yes: WNL Cardiovascular: Yes: Pulse Irregular Respiratory: Yes: WNL Gastrointestinal: Yes: Soft Genitourinary: Yes: Incontinence Musculoskeletal: Yes: Muscle Weakness Edema: No Integumentary: Yes: WNL Wound/Incision: Yes: Clean/Dry Neurological: Yes: Pre-Existing Deficit Psychiatric: Yes: Other Labs: CBC, BMP 01/01/19 09:56 12/31/18 07:05 Problem List - Problems (1) Atrial fibrillation by electrocardiogram Code(s): I48.91 - UNSPECIFIED ATRIAL FIBRILLATION (2) Chest pain Code(s): R07.9 - CHEST PAIN, UNSPECIFIED Qualifiers: Chest pain type: unspecified Qualified Code(s): R07.9 - Chest pain, unspecified (3) Shortness of breath Code(s): R06.02 - SHORTNESS OF BREATH (4) Abdominal pain Code(s): R10.9 - UNSPECIFIED ABDOMINAL PAIN (5) Anxiety Code(s): F41.9 - ANXIETY DISORDER, UNSPECIFIED (6) Mitral valve disease Code(s): I05.9 - RHEUMATIC MITRAL VALVE DISEASE, UNSPECIFIED (7) Parkinson disease Code(s): G20 - PARKINSON'S DISEASE (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
--- NOTE | 2019-01-01 13:04 | PN ---
Progress Note (short form) - Note Progress Note: s: no chest pain, palps, dizziness, dyspnea Current Medications Acetaminophen (Tylenol -) 650 mg PO Q6H PRN PRN Reason: PAIN LEVEL 6-10 Last Admin: 01/01/19 09:56 Dose: 650 mg Apixaban (Eliquis -) 5 mg PO BID [facility] Furosemide (Lasix -) 20 mg PO DAILY [facility] Last Admin: 01/01/19 09:56 Dose: 20 mg Sodium Chloride (Normal Saline -) 1,000 mls @ 83 mls/hr IV ASDIR [facility] Last Admin: 01/01/19 06:54 Dose: 83 mls/hr Methyl Salicylate (Nick-Craft -) 1 applic TP BID [facility] Last Admin: 01/01/19 09:52 Dose: 1 applic Metoprolol Succinate (Toprol Xl -) 12.5 mg PO DAILY [facility] Last Admin: 01/01/19 09:55 Dose: 12.5 mg Metoprolol Tartrate (Lopressor Injection -) 5 mg IVPUSH Q4H PRN PRN Reason: HYPERTENSION Ranitidine HCl (Zantac -) 150 mg PO DAILY [facility] Last Admin: 01/01/19 09:56 Dose: 150 mg Vital Signs Period Temp Pulse Resp BP Sys/Barnes Pulse Ox Last 24 Hr 97.2 F-98.6 F 73-93 17-23 89-138/54-92 95-97 Constitutional: Yes: No Distress, Calm Eyes: Yes: Conjunctiva Clear, EOM Intact HENT: Yes: Atraumatic, Normocephalic Neck: Yes: Supple, Trachea Midline Respiratory: Yes: Regular, CTA Bilaterally Gastrointestinal: Yes: Normal Bowel Sounds, Soft Cardiovascular: Yes: Pulse Irregular JVD: No Heart Sounds: Yes: S1, S2 Extremities: No: Cold Edema: No Integumentary: No: Jaundice Neurological: Yes: Alert, Oriented Psychiatric: No: Agitated Assessment/Plan EKG: afib, 89 bpm, no ischemic changes CXR: no congestion tele: rate 70s-90s atrial fibrillation - new onset - [id number] warrants AC, on heparin gtt, transition to eliquis 5 mg BID - cont metoprolol, rate stable - echo ordered shortness of breath, chest pain - complains of chest pain along with whole body pain including back, extremities - trop neg x2, EKG no ischemic changes, unlikely ACS - CXR no congestion, BNP elevated - echo is pending - cont home lasix 20 mg daily for now, appears euvolemic CAD - patient not sure of details - holding aspirin, starting AC as above
--- NOTE | 2019-01-01 13:32 | PN ---
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 Current Medications Acetaminophen (Tylenol -) 650 mg PO Q6H PRN PRN Reason: PAIN LEVEL 6-10 Last Admin: 01/01/19 09:56 Dose: 650 mg Apixaban (Eliquis -) 5 mg PO BID [facility] Furosemide (Lasix -) 20 mg PO DAILY [facility] Last Admin: 01/01/19 09:56 Dose: 20 mg Sodium Chloride (Normal Saline -) 1,000 mls @ 83 mls/hr IV ASDIR [facility] Last Admin: 01/01/19 06:54 Dose: 83 mls/hr Methyl Salicylate (Nick-Craft -) 1 applic TP BID [facility] Last Admin: 01/01/19 09:52 Dose: 1 applic Metoprolol Succinate (Toprol Xl -) 12.5 mg PO DAILY [facility] Last Admin: 01/01/19 09:55 Dose: 12.5 mg Metoprolol Tartrate (Lopressor Injection -) 5 mg IVPUSH Q4H PRN PRN Reason: HYPERTENSION Ranitidine HCl (Zantac -) 150 mg PO DAILY [facility] Last Admin: 01/01/19 09:56 Dose: 150 mg Last Vital Signs Temp Pulse Resp BP Pulse Ox 97.2 F L 81 20 117/70 96 01/01/19 12:00 01/01/19 12:00 01/01/19 12:00 01/01/19 12:00 12/31/18 21:00 alert in nad Lungs clear heart reg Abd soft nontender Ext no edema CBC, BMP 01/01/19 09:56 12/31/18 07:05 IMP mild Hyponatremia Afib Plan- will order urine osmolality and spot sodium oral hydration only for now
[2019-01-01] MEDS ORDERED: APIXABAN 5 MG TABLET PO ONE (14:30)
[2019-01-01 15:35] LABS: URINE RBC 8.6 /hpf (0-4)
[2019-01-01] MEDS: APIXABAN 5 MG TABLET PO SCH (21:32)
[2019-01-02] MEDS: busPIRone HCL 5 MG TABLET PO SCH ×3 (01:50→21:06)
[2019-01-02] MEDS: METHYL SALICYLATE/MENTHOL OINT 30 GM TUBE TP SCH ×3 (01:50→21:07)
[2019-01-02] MEDS: SODIUM CHLORIDE 1,000 ML IV SCH (05:57)
[2019-01-02 07:12] LABS: INR 1.28 (0.83-1.09); PROTHROMBIN TIME (PATIENT) 15.1 SEC (9.7-13.0)
[2019-01-02 07:15] LABS: ACTIVATED PTT 31.8 SECONDS (25.2-36.5)
--- NOTE | 2019-01-02 09:20 | CONSULT ---
Admitting History and Physical - Primary Care Physician PCP: Maryjane Hennessy - Admission History of Present Illness: 88 F, HTN, Mitral prolapse w/ moderate regurgitation, anxiety, and diverticulitis admitted due to chest discomfort and SOB with new onset AFib. Selected Entries 01/01/19 01/01/19 01/01/19 11:35 12:00 14:11 Breakfast 50% Temperature 97.2 F L 97.6 F Laboratory Tests 12/30/18 12/31/18 01/01/19 15:15 07:05 09:56 WBC 7.1 6.9 7.8 On Dys whole diet, sips of liquid. 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 Cardiovascular: Yes: CAD, Mitral Insufficiency (recent evaluation) Pulmonary: No: Asthma, Bronchitis, Cancer, COPD, O2 Dependent, Pneumonia, Previously Intubated, Pulmonary Embolus, Pulmonary Fibrosis, Sleep Apnea ...: No Psych: Yes: Anxiety - Past Surgical History Past Surgical History: Yes: None - Advance Directives Advance Directives: Yes: Living Will - Smoking History Smoking history: Never smoked Have you smoked in the past 12 months: No Aproximately how many cigarettes per day: 0 - Alcohol/Substance Use Hx Alcohol Use: No History of Substance Use: reports: None - Social History ADL: Family Assistance History of Recent Travel: No History - Admission Reason For Visit: SOB AFIB - Diagnostics X-ray: Report Reviewed Modified Barium Swallow: Report Reviewed (08/16/2017- Deep penetration on both thick and thin liquid into the laryngeal vestibule with aspiration risk. Coughs while drinking at ties. Educated to flex head and take smaller sips of thin liquid.) - General Mental Status: Alert and Oriented, Awake and Alert, Able to Follow Commands, Forgetful (possibly) Attention: Intact Ability to Follow Directions: Excellent Head/Neck Control: WFL - Hearing Hearing: Normal Hearing Aide: No Speech Evaluation - Communication Primary Language: URDU Oral Expression Ability: Yes: Mild Impairment - Speech Production Dysarthria: Yes: Ataxic Able to Make Needs Known: Yes: Mildly Impaired Intelligibility: Yes: Mildly Impaired - Speech Characteristics Voice Loudness: Normal Voice Pitch: Yes: Normal, Excessive Variation Voice Phonatory-based Quality: Yes: Quivering Speech Pattern: Impaired Speech Clarity: < 75% Nasal Resonance: Normal Articulation: Yes: Precise Voice, Other Observations: Yes: Disordered Intonation - Language/Auditory Comprehension Follows: Yes: 2 Stage Simple Commands Observation: Able to respond to yes/no queries: Yes, Yes/No Confusion: No, Comprehends Conversational Speech: Yes - Language/Verbal Expression Able to Respond to Simple Queries: Yes: WNL Able to Communicate Wants and Needs: Yes: WNL Functional Communication Status: Yes: WNL - Swallow Evaluation/Bedside Assessment Current Nutritional Intake: Dysphagia Whole, Thin Liquids Oral Secretions: Yes: WFL Dentition: Yes: Adequate Facial Symmetry on Retraction: Symmetrical Facial Movement: Controlled Against Resistance Opening: Normal Against Resistance Closing: Normal Pucker Lips: Normal Smile: Normal Lingual Movement: Normal Laryngeal Movement: Able to Palpate Rate of Intake: WFL (takes small careful bites, sips. Takes a long time to eat. Appetite is limited. Ate very little breakfast this am.) Bolus Size: Small Labial Seal: WFL Oral Prep Time: WFL A-P Transit: WFL Pocketing: None Timing of Swallow: Delayed Coughing/Throat Clear: No Change in Voice: No Recommendations - Speech Evaluation, Impression/Plan Impression: Voice is ataxic.Oriented. Appropriate. h/o mbs with deep penetration of thin and thick liquid with risk of aspiration in 2018. Overtly seems to be compensating well, taking small sips with chin tuck. - Disposition Discharge to: To be Determined - Dysphagia Impressions/Plan Dysphagia Impressions: Risk of Aspiration, Ongoing Evaluation *Silent aspiration: cannot be R/O at bedside Dysphagia Treatment Plan: Small Bites, Chin Tuck/Down, Safe Rate, 1/2 tsp. at a time, Elevate HOB during feed Recommendations: Modified Barium Swallow (if congestion/aspiration suspected) - Recommendations Diet Consistency: Dysphagia Whole Liquids: Thin Liquids
[2019-01-02] MEDS: RANITIDINE HCL 150 MG TABLET (FP) PO SCH (09:55)
[2019-01-02] MEDS: metoPROLOL SUCCINATE 25 MG TAB.SR.24H (FP) PO SCH (09:55)
[2019-01-02] MEDS: FUROSEMIDE 20 MG TABLET (FP) PO SCH (09:56)
[2019-01-02] MEDS: APIXABAN 5 MG TABLET PO SCH ×2 (09:56→21:07)
[2019-01-02 10:46] LABS: EPI CELLS 2.1 /HPF (0-5/HPF); HYALINE CASTS 0 /lpf (0-8); URINE APPEARANCE CLEAR; URINE BACTERIA 8.4 /hpf (NEGATIVE); URINE BILIRUBIN NEGATIVE (NEGATIVE); URINE COLOR YELLOW; URINE GLUCOSE (UA) NEGATIVE (NEGATIVE); URINE KETONE NEGATIVE (NEGATIVE); URINE LEUK ESTERASE NEGATIVE (NEGATIVE); URINE NITRITE NEGATIVE (NEGATIVE); URINE PROTEIN NEGATIVE (NEGATIVE); URINE RBC 3 /hpf (0-4); URINE UROBILINOGEN 0.2 mg/dL (0.2-1.0); URINE WBC 1 /hpf (0-5)
--- NOTE | 2019-01-02 11:48 | PN ---
Progress Note, Physician Chief Complaint: patient seen adn examined in athletic monitor seen for afib rate controlled - Current Medication List Current Medications: Active Medications Acetaminophen (Tylenol -) 650 mg PO Q6H PRN PRN Reason: PAIN LEVEL 6-10 Last Admin: 01/01/19 09:56 Dose: 650 mg Apixaban (Eliquis -) 5 mg PO BID [facility] Last Admin: 01/02/19 09:56 Dose: 5 mg Buspirone HCl (Buspar -) 5 mg PO BID [facility] Last Admin: 01/02/19 09:56 Dose: 5 mg Methyl Salicylate (Nick-Craft -) 1 applic TP BID [facility] Last Admin: 01/02/19 09:59 Dose: 1 applic Metoprolol Succinate (Toprol Xl -) 12.5 mg PO DAILY [facility] Last Admin: 01/02/19 09:55 Dose: 12.5 mg Metoprolol Tartrate (Lopressor Injection -) 5 mg IVPUSH Q4H PRN PRN Reason: HYPERTENSION Ranitidine HCl (Zantac -) 150 mg PO DAILY [facility] Last Admin: 01/02/19 09:55 Dose: 150 mg - Objective Vital Signs: Vital Signs Temperature 98 F 01/02/19 08:00 Pulse Rate 89 01/02/19 08:00 Respiratory Rate 24 H 01/02/19 08:00 Blood Pressure 129/65 01/02/19 08:00 O2 Sat by Pulse Oximetry (%) 97 01/02/19 09:00 Constitutional: Yes: Calm, Thin Cardiovascular: Yes: Pulse Irregular, S1, S2 Respiratory: Yes: CTA Bilaterally Gastrointestinal: Yes: Normal Bowel Sounds, Soft Extremities: Yes: Other (palpable pulses) Edema: No Neurological: Yes: Alert, Oriented Labs: CBC, BMP 01/01/19 09:56 12/31/18 07:05 INR, PTT INR 1.28 (0.83-1.09) H 01/02/19 05:40 Problem List - Problems (1) Atrial fibrillation by electrocardiogram Assessment/Plan: telemetry in afib tsh normal rate control on low dose metoprolol iv heparin stopped on eliquis cardiology eval noted echo pending Code(s): I48.91 - UNSPECIFIED ATRIAL FIBRILLATION Assessment/Plan PT eval today MBS ordered today on eliquis sodium is 135 patient is euvolemic will stop duiretic and ivf BP is better
--- NOTE | 2019-01-02 11:56 | PN ---
Progress Note, Physician History of Present Illness: Pt seen and examined at bedside. She is awake and alert. She feels that her breathing is improving. - Current Medication List Current Medications: Active Medications Acetaminophen (Tylenol -) 650 mg PO Q6H PRN PRN Reason: PAIN LEVEL 6-10 Last Admin: 01/01/19 09:56 Dose: 650 mg Apixaban (Eliquis -) 5 mg PO BID [facility] Last Admin: 01/02/19 09:56 Dose: 5 mg Buspirone HCl (Buspar -) 5 mg PO BID [facility] Last Admin: 01/02/19 09:56 Dose: 5 mg Methyl Salicylate (Nick-Craft -) 1 applic TP BID [facility] Last Admin: 01/02/19 09:59 Dose: 1 applic Metoprolol Succinate (Toprol Xl -) 12.5 mg PO DAILY [facility] Last Admin: 01/02/19 09:55 Dose: 12.5 mg Metoprolol Tartrate (Lopressor Injection -) 5 mg IVPUSH Q4H PRN PRN Reason: HYPERTENSION Ranitidine HCl (Zantac -) 150 mg PO DAILY [facility] Last Admin: 01/02/19 09:55 Dose: 150 mg - Objective Vital Signs: Vital Signs Temperature 98 F 01/02/19 08:00 Pulse Rate 89 01/02/19 08:00 Respiratory Rate 24 H 01/02/19 08:00 Blood Pressure 129/65 01/02/19 08:00 O2 Sat by Pulse Oximetry (%) 97 01/02/19 09:00 Constitutional: Yes: Calm Eyes: Yes: Conjunctiva Clear HENT: Yes: Atraumatic Neck: Yes: Supple Cardiovascular: Yes: S1, S2 Gastrointestinal: Yes: Soft Genitourinary: Yes: WNL Musculoskeletal: Yes: WNL Edema: No Neurological: Yes: Oriented Psychiatric: Yes: Oriented Labs: CBC, BMP 01/01/19 09:56 12/31/18 07:05 INR, PTT INR 1.28 (0.83-1.09) H 01/02/19 05:40 Problem List - Problems (1) Hyponatremia Code(s): E87.1 - HYPO-OSMOLALITY AND HYPONATREMIA (2) Atrial fibrillation by electrocardiogram Code(s): I48.91 - UNSPECIFIED ATRIAL FIBRILLATION Assessment/Plan Current Medications Generic Name Dose Route Start Last Admin Trade Name Freq PRN Reason Stop Dose Admin Acetaminophen 650 mg 12/31/18 06:08 01/01/19 09:56 Tylenol - PO 650 mg Q6H PRN Administration PAIN LEVEL 6-10 Apixaban 5 mg 01/01/19 22:00 01/02/19 09:56 Eliquis - PO 5 mg BID [facility] Administration Buspirone HCl 5 mg 01/01/19 22:15 01/02/19 09:56 Buspar - PO 5 mg BID [facility] Administration Methyl Salicylate 1 applic 12/31/18 22:00 01/02/19 09:59 Nick-Craft - TP 1 applic BID [facility] Administration Metoprolol Succinate 12.5 mg 12/31/18 10:00 01/02/19 09:55 Toprol Xl - PO 12.5 mg DAILY [facility] Administration Metoprolol Tartrate 5 mg 12/31/18 11:33 Lopressor Injection - IVPUSH Q4H PRN HYPERTENSION Ranitidine HCl 150 mg 12/31/18 10:00 01/02/19 09:55 Zantac - PO 150 mg DAILY [facility] Administration Impression 1. hyponatremia 2. a-fib 3. dyspnea 4. CAD Plan - restrict free water - sodium stabilizing - repeat labs in am - discussed plan with pt
--- NOTE | 2019-01-02 15:41 | ECHO ---
Name: LIA QUIÑONEZ Exam:Adult Echocardiogram Study Date: 01/02/2019 01:14 PM Age: 88 yrs Reason For Study: WALL MOTION ABNORMALITY Height: 59 in Weight: 150 lb BSA: 1.6 m2 MMode/2D Measurements & Calculations IVSd: 1.1 cm Ao root diam: 2.5 cm LVIDd: 3.6 cm LA dimension: 3.8 cm LVIDs: 2.6 cm LVPWd: 1.0 cm LVPWs: 1.3 cm EDV(Teich): 53.0 ml ESV(Teich): 23.5 ml LVOT diam: 1.8 cm LAV (MOD-bp): 64.0 ml Doppler Measurements & Calculations Ao V2 max: 174.7 cm/sec AI max kay: 454.2 cm/sec Ao max P.3 mmHg AI max P.6 mmHg Ao V2 mean: 139.2 cm/sec Ao mean P.5 mmHg AI dec slope: 264.1 cm/sec2 Ao V2 VTI: 34.8 cm LUÍS(I,D): 1.3 cm2 AI P1/2t: 503.8 msec LUÍS(V,D): 1.4 cm2 LV V1 max P.6 mmHg MR max kay: 482.8 cm/sec LV V1 mean P.7 mmHg MR max P.4 mmHg LV V1 max: 94.3 cm/sec LV V1 mean: 59.4 cm/sec LV V1 VTI: 17.3 cm SV(LVOT): 45.3 ml TR max kay: 269.1 cm/sec TR max P.6 mmHg PA V2 max: 86.5 cm/sec PA max P.0 mmHg Procedure A complete two-dimensional transthoracic echocardiogram was performed (2D, M-mode, Doppler and color flow Doppler). Left Ventricle The left ventricle is normal in size. Left ventricular systolic function is normal. Ejection Fraction = 55- 60%. No regional wall motion abnormalities noted. Right Ventricle The right ventricle is normal size. The right ventricular systolic function is normal. Atria The left atrium is mildly dilated. LA volume index is 39 ml/m2. Right atrial size is normal. Mitral Valve There is mild mitral valve thickening. There is moderate mitral regurgitation. Tricuspid Valve The tricuspid valve is normal in structure and function. There is moderate tricuspid regurgitation. P ulmonary artery systolic pressure is at least 44 mmHg if RA pressure is assumed 3 mmHg. Aortic Valve There is mild aortic sclerosis.;. Mild aortic regurgitation. Pulmonic Valve The pulmonic valve is not well visualized. Great Vessels The aortic root is normal size. Pericardium/Pleura There is no pericardial effusion. Interpretation Summary The left ventricle is normal in size. Left ventricular systolic function is normal. No regional wall motion abnormalities noted. Ejection Fraction = 55-60%. The right ventricular systolic function is normal. The left atrium is mildly dilated. Right atrial size is normal. There is mild mitral valve thickening. There is moderate mitral regurgitation. There is moderate tricuspid regurgitation. Pulmonary artery systolic pressure is at least 44 mmHg if RA pressure is assumed 3 mmHg There is mild aortic sclerosis. Mild aortic regurgitation. There is no pericardial effusion. Jean Marie Rivera MD 01/02/2019 03:41 PM
--- NOTE | 2019-01-02 16:13 | PN ---
Progress Note (short form) - Note Progress Note: s: no chest pain, palps, dizziness, dyspnea Current Medications Acetaminophen (Tylenol -) 650 mg PO Q6H PRN PRN Reason: PAIN LEVEL 6-10 Last Admin: 01/01/19 09:56 Dose: 650 mg Apixaban (Eliquis -) 5 mg PO BID [facility] Last Admin: 01/02/19 09:56 Dose: 5 mg Buspirone HCl (Buspar -) 5 mg PO BID [facility] Last Admin: 01/02/19 09:56 Dose: 5 mg Methyl Salicylate (Nick-Craft -) 1 applic TP BID [facility] Last Admin: 01/02/19 09:59 Dose: 1 applic Metoprolol Succinate (Toprol Xl -) 12.5 mg PO DAILY [facility] Last Admin: 01/02/19 09:55 Dose: 12.5 mg Metoprolol Tartrate (Lopressor Injection -) 5 mg IVPUSH Q4H PRN PRN Reason: HYPERTENSION Ranitidine HCl (Zantac -) 150 mg PO DAILY [facility] Last Admin: 01/02/19 09:55 Dose: 150 mg Vital Signs Period Temp Pulse Resp BP Sys/Barnes Pulse Ox Last 24 Hr 98 F-98.9 F 84-92 22-24 117-132/65-80 96-97 Constitutional: Yes: No Distress, Calm Eyes: Yes: Conjunctiva Clear, EOM Intact HENT: Yes: Atraumatic, Normocephalic Neck: Yes: Supple, Trachea Midline Respiratory: Yes: Regular, CTA Bilaterally Gastrointestinal: Yes: Normal Bowel Sounds, Soft Cardiovascular: Yes: Pulse Irregular JVD: No Heart Sounds: Yes: S1, S2 Extremities: No: Cold Edema: No Integumentary: No: Jaundice Neurological: Yes: Alert, Oriented Psychiatric: No: Agitated Assessment/Plan EKG: afib, 89 bpm, no ischemic changes CXR: no congestion echo 12/2018 nl LV/RV function, mod MR, mod TR, PASP at least 44 mmHg, mild AR, mild aortic sclerosis tele: rate 70s-90s, occasional 120s atrial fibrillation - new onset - [id number] warrants AC, on heparin gtt, transition to eliquis 5 mg BID - cont metoprolol, will increase to 25 mg daily for episodes of RVR - echo with nl LV function, moderate MR shortness of breath, chest pain - complains of chest pain along with whole body pain including back, extremities - trop neg x2, EKG no ischemic changes, unlikely ACS - CXR no congestion, BNP elevated - holding lasix for hyponatremia CAD - patient not sure of details - holding aspirin, starting AC as above
--- NOTE | 2019-01-03 07:24 | PN ---
Progress Note, Physician - Current Medication List Current Medications: Active Medications Acetaminophen (Tylenol -) 650 mg PO Q6H PRN PRN Reason: PAIN LEVEL 6-10 Last Admin: 01/01/19 09:56 Dose: 650 mg Apixaban (Eliquis -) 5 mg PO BID [facility] Last Admin: 01/02/19 21:07 Dose: 5 mg Buspirone HCl (Buspar -) 5 mg PO BID [facility] Last Admin: 01/02/19 21:06 Dose: 5 mg Methyl Salicylate (Nick-Craft -) 1 applic TP BID [facility] Last Admin: 01/02/19 21:07 Dose: 1 applic Metoprolol Succinate (Toprol Xl -) 25 mg PO DAILY [facility] Metoprolol Tartrate (Lopressor Injection -) 5 mg IVPUSH Q4H PRN PRN Reason: HYPERTENSION Ranitidine HCl (Zantac -) 150 mg PO DAILY [facility] Last Admin: 01/02/19 09:55 Dose: 150 mg - Objective Vital Signs: Vital Signs Temperature 98.7 F 01/03/19 06:00 Pulse Rate 96 H 01/03/19 06:00 Respiratory Rate 19 01/03/19 06:00 Blood Pressure 148/64 01/03/19 06:00 O2 Sat by Pulse Oximetry (%) 98 01/02/19 20:16 Labs: CBC, BMP 01/01/19 09:56 INR, PTT INR 1.28 (0.83-1.09) H 01/02/19 05:40 Problem List - Problems (1) Atrial fibrillation by electrocardiogram Code(s): I48.91 - UNSPECIFIED ATRIAL FIBRILLATION (2) Chest pain Code(s): R07.9 - CHEST PAIN, UNSPECIFIED Qualifiers: Chest pain type: unspecified Qualified Code(s): R07.9 - Chest pain, unspecified (3) Shortness of breath Code(s): R06.02 - SHORTNESS OF BREATH (4) Abdominal pain Code(s): R10.9 - UNSPECIFIED ABDOMINAL PAIN (5) Anxiety Code(s): F41.9 - ANXIETY DISORDER, UNSPECIFIED (6) Mitral valve disease Code(s): I05.9 - RHEUMATIC MITRAL VALVE DISEASE, UNSPECIFIED (7) Parkinson disease Code(s): G20 - PARKINSON'S DISEASE (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
[2019-01-03 07:39] LABS: ALK PHOS 55 U/L (45-117); ANION GAP 6 MMOL/L (8-16); BILIRUBIN,TOTAL 0.8 mg/dL (0.2-1); CALCIUM 8.6 mg/dL (8.5-10.1); CHLORIDE 103 mmol/L (98-107); CO2 30 mmol/L (21-32); CREATININE 0.6 mg/dL (0.55-1.3); GLUCOSE,RANDOM 105 mg/dL (74-106); POTASSIUM 3.9 mmol/L (3.5-5.1); SGOT/AST 20 U/L (15-37); SGPT/ALT 28 U/L (13-61); SODIUM 138 mmol/L (136-145); TOT PROT 5.9 g/dl (6.4-8.2)
[2019-01-03] MEDS: RANITIDINE HCL 150 MG TABLET (FP) PO SCH (09:14)
[2019-01-03] MEDS: APIXABAN 5 MG TABLET PO SCH (09:14)
[2019-01-03] MEDS: busPIRone HCL 5 MG TABLET PO SCH (09:14)
[2019-01-03] MEDS: METHYL SALICYLATE/MENTHOL OINT 30 GM TUBE TP SCH (09:17)
[2019-01-03] MEDS ORDERED: metoPROLOL SUCCINATE 25 MG TAB.SR.24H (FP) PO SCH (10:00)
[2019-01-03 10:11] VITALS: TEMP 99
[2019-01-03 10:28] LABS: HEMATOCRIT 37.1 % (32.4-45.2); HEMOGLOBIN 12.5 GM/dL (10.7-15.3); MCH 33.5 pg (25.7-33.7); MCHC 33.7 g/dl (32.0-36.0); MEAN CELL VOLUME 99.5 fl (80-96); MEAN PLT VOLUME 8.3 fl (7.5-11.1); PLATELET COUNT 220 K/MM3 (134-434); RBC 3.73 M/mm3 (3.60-5.2); RDW 13.7 % (11.6-15.6); WHITE BLOOD COUNT 9.4 K/mm3 (4.0-10.0)
[2019-01-03] MEDS ORDERED: metoPROLOL SUCCINATE 25 MG TAB.SR.24H (FP) PO ONE (11:23)
--- NOTE | 2019-01-03 11:24 | PN ---
Progress Note (short form) - Note Progress Note: s: no chest pain, palps, dizziness, dyspnea Current Medications Acetaminophen (Tylenol -) 650 mg PO Q6H PRN PRN Reason: PAIN LEVEL 6-10 Last Admin: 01/01/19 09:56 Dose: 650 mg Apixaban (Eliquis -) 5 mg PO BID [facility] Last Admin: 01/03/19 09:14 Dose: 5 mg Buspirone HCl (Buspar -) 5 mg PO BID [facility] Last Admin: 01/03/19 09:14 Dose: 5 mg Methyl Salicylate (Nick-Craft -) 1 applic TP BID [facility] Last Admin: 01/03/19 09:17 Dose: 1 applic Metoprolol Succinate (Toprol Xl -) 50 mg PO DAILY [facility] Metoprolol Succinate (Toprol Xl -) 25 mg PO ONCE ONE Stop: 01/03/19 11:24 Metoprolol Tartrate (Lopressor Injection -) 5 mg IVPUSH Q4H PRN PRN Reason: HYPERTENSION Ranitidine HCl (Zantac -) 150 mg PO DAILY [facility] Last Admin: 01/03/19 09:14 Dose: 150 mg Vital Signs Period Temp Pulse Resp BP Sys/Barnes Pulse Ox Last 24 Hr 98.5 F-99.0 F 64-106 19-28 115-172/64-111 98-98 Constitutional: Yes: No Distress, Calm Eyes: Yes: Conjunctiva Clear, EOM Intact HENT: Yes: Atraumatic, Normocephalic Neck: Yes: Supple, Trachea Midline Respiratory: Yes: Regular, CTA Bilaterally Gastrointestinal: Yes: Normal Bowel Sounds, Soft Cardiovascular: Yes: Pulse Irregular JVD: No Heart Sounds: Yes: S1, S2 Extremities: No: Cold Edema: No Integumentary: No: Jaundice Neurological: Yes: Alert, Oriented Psychiatric: No: Agitated Assessment/Plan EKG: afib, 89 bpm, no ischemic changes CXR: no congestion echo 12/2018 nl LV/RV function, mod MR, mod TR, PASP at least 44 mmHg, mild AR, mild aortic sclerosis tele: rate 70s-90s, episodes RVR 120s-140s atrial fibrillation - new onset - [id number] warrants AC, now on eliquis 5 mg BID - cont metoprolol, will increase to 50 mg daily for episodes of RVR - echo with nl LV function, moderate MR shortness of breath, chest pain - complains of chest pain along with whole body pain including back, extremities - trop neg x2, EKG no ischemic changes, unlikely ACS - CXR no congestion, BNP elevated - holding lasix for hyponatremia CAD - patient not sure of details - holding aspirin, starting AC as above
--- NOTE | 2019-01-03 12:20 | PN ---
Progress Note (short form) - Note Progress Note: PULMONARY States breathing is improving. Still some episodes of rapid rates. Vital Signs Period Temp Pulse Resp BP Sys/Barnes Pulse Ox Last 24 Hr 98.5 F-99.0 F 64-106 19-28 110-148/64-92 98-98 Gen: NAD in chair Heart: irregular Lung: decreased breath sounds at the bases Abd: soft, nontender Ext: no edema CBC, BMP 01/03/19 09:58 01/03/19 05:35 Active Medications Acetaminophen (Tylenol -) 650 mg PO Q6H PRN PRN Reason: PAIN LEVEL 6-10 Last Admin: 01/01/19 09:56 Dose: 650 mg Apixaban (Eliquis -) 5 mg PO BID [facility] Last Admin: 01/03/19 09:14 Dose: 5 mg Buspirone HCl (Buspar -) 5 mg PO BID [facility] Last Admin: 01/03/19 09:14 Dose: 5 mg Methyl Salicylate (Nick-Craft -) 1 applic TP BID [facility] Last Admin: 01/03/19 09:17 Dose: 1 applic Metoprolol Succinate (Toprol Xl -) 50 mg PO DAILY [facility] Metoprolol Tartrate (Lopressor Injection -) 5 mg IVPUSH Q4H PRN PRN Reason: HYPERTENSION Ranitidine HCl (Zantac -) 150 mg PO DAILY [facility] Last Admin: 01/03/19 09:14 Dose: 150 mg A/P New Onset Atrial Fibrilation Mitral Regurgitation CAD - rate control - continue anticoagulation - O2 as needed - telemetry monitoring
--- NOTE | 2019-01-03 12:36 | PN ---
Progress Note, Physician History of Present Illness: Pt seen and examined at bedside. She is awake and alert. She denies shortness of breath. She denies lower ext edema. - Current Medication List Current Medications: Active Medications Acetaminophen (Tylenol -) 650 mg PO Q6H PRN PRN Reason: PAIN LEVEL 6-10 Last Admin: 01/01/19 09:56 Dose: 650 mg Apixaban (Eliquis -) 5 mg PO BID [facility] Last Admin: 01/03/19 09:14 Dose: 5 mg Buspirone HCl (Buspar -) 5 mg PO BID [facility] Last Admin: 01/03/19 09:14 Dose: 5 mg Methyl Salicylate (Nick-Craft -) 1 applic TP BID [facility] Last Admin: 01/03/19 09:17 Dose: 1 applic Metoprolol Succinate (Toprol Xl -) 50 mg PO DAILY [facility] Metoprolol Tartrate (Lopressor Injection -) 5 mg IVPUSH Q4H PRN PRN Reason: HYPERTENSION Ranitidine HCl (Zantac -) 150 mg PO DAILY [facility] Last Admin: 01/03/19 09:14 Dose: 150 mg - Objective Vital Signs: Vital Signs Temperature 99.0 F 01/03/19 10:00 Pulse Rate 91 H 01/03/19 12:18 Respiratory Rate 22 H 01/03/19 12:18 Blood Pressure 110/92 01/03/19 12:18 O2 Sat by Pulse Oximetry (%) 98 01/03/19 10:00 Constitutional: Yes: Calm Eyes: Yes: Conjunctiva Clear HENT: Yes: Atraumatic Neck: Yes: Supple Cardiovascular: Yes: S1, S2 Respiratory: Yes: CTA Bilaterally Gastrointestinal: Yes: Soft Genitourinary: Yes: WNL Musculoskeletal: Yes: WNL Edema: No Neurological: Yes: Oriented Psychiatric: Yes: Oriented Labs: CBC, BMP 01/03/19 09:58 01/03/19 05:35 INR, PTT INR 1.28 (0.83-1.09) H 01/02/19 05:40 Problem List - Problems (1) Hyponatremia Code(s): E87.1 - HYPO-OSMOLALITY AND HYPONATREMIA (2) Atrial fibrillation by electrocardiogram Code(s): I48.91 - UNSPECIFIED ATRIAL FIBRILLATION Assessment/Plan Current Medications Generic Name Dose Route Start Last Admin Trade Name Freq PRN Reason Stop Dose Admin Acetaminophen 650 mg 12/31/18 06:08 01/01/19 09:56 Tylenol - PO 650 mg Q6H PRN Administration PAIN LEVEL 6-10 Apixaban 5 mg 01/01/19 22:00 01/03/19 09:14 Eliquis - PO 5 mg BID [facility] Administration Buspirone HCl 5 mg 01/01/19 22:15 01/03/19 09:14 Buspar - PO 5 mg BID [facility] Administration Methyl Salicylate 1 applic 12/31/18 22:00 01/03/19 09:17 Nick-Craft - TP 1 applic BID [facility] Administration Metoprolol Succinate 50 mg 01/03/19 11:23 Toprol Xl - PO DAILY [facility] Metoprolol Tartrate 5 mg 12/31/18 11:33 Lopressor Injection - IVPUSH Q4H PRN HYPERTENSION Ranitidine HCl 150 mg 12/31/18 10:00 01/03/19 09:14 Zantac - PO 150 mg DAILY [facility] Administration Impression 1. hyponatremia 2. a-fib 3. dyspnea 4. CAD Plan - sodium has normalized - volume status is stable - lasix on hold - cardio input appreciated - monitor volume status - diuretics PRN
--- NOTE | 2019-01-03 13:08 | DS ---
Physical Examination Vital Signs: Vital Signs Temperature 99.0 F 01/03/19 10:00 Pulse Rate 91 H 01/03/19 12:18 Respiratory Rate 22 H 01/03/19 12:18 Blood Pressure 110/92 01/03/19 12:18 O2 Sat by Pulse Oximetry (%) 98 01/03/19 10:00 Findings/Remarks: Laboratory Tests 12/30/18 12/30/18 12/30/18 15:15 15:15 15:15 WBC 7.1 RBC 4.09 Hgb 13.6 Hct 40.7 MCV 99.6 H MCH 33.2 MCHC 33.3 RDW 13.8 Plt Count 266 MPV 8.1 D Absolute Neuts (auto) 4.6 Neutrophils % 64.0 Lymphocytes % 25.0 D Monocytes % 9.3 Eosinophils % 1.1 D Basophils % 0.6 Nucleated RBC % 0 PT with INR INR PTT (Actin FS) Sodium 135 L Potassium 4.4 Chloride 102 Carbon Dioxide 28 Anion Gap 4 L BUN 16.6 Creatinine 0.7 Est GFR (CKD-EPI)AfAm 90.93 Est GFR (CKD-EPI)NonAf 78.45 POC Glucometer Random Glucose 100 Hemoglobin A1c % Calcium 9.7 Phosphorus Magnesium Total Bilirubin 0.4 AST 20 ALT 27 Alkaline Phosphatase 62 Creatine Kinase 32 Troponin I < 0.02 B-Natriuretic Peptide Total Protein 6.6 Albumin 3.4 Triglycerides Cholesterol Total LDL Cholesterol HDL Cholesterol TSH 0.85 Urine Color Urine Appearance Urine pH Ur Specific Marion Urine Protein Urine Glucose (UA) Urine Ketones Urine Blood Urine Nitrite Urine Bilirubin Urine Urobilinogen Ur Leukocyte Esterase Urine WBC (Auto) Urine RBC (Auto) Urine Casts (Auto) U Epithel Cells (Auto) Urine Bacteria (Auto) Urine Osmolality Ur Random Sodium 12/31/18 12/31/18 12/31/18 00:20 07:05 07:05 WBC 6.9 RBC 3.72 Hgb 12.6 Hct 36.6 MCV 98.5 H MCH 33.8 H MCHC 34.4 RDW 13.9 Plt Count 240 MPV 7.7 Absolute Neuts (auto) Neutrophils % Lymphocytes % Monocytes % Eosinophils % Basophils % Nucleated RBC % PT with INR INR PTT (Actin FS) 47.0 H 88.3 H Sodium Potassium Chloride Carbon Dioxide Anion Gap BUN Creatinine Est GFR (CKD-EPI)AfAm Est GFR (CKD-EPI)NonAf POC Glucometer Random Glucose Hemoglobin A1c % Calcium Phosphorus Magnesium Total Bilirubin AST ALT Alkaline Phosphatase Creatine Kinase Troponin I B-Natriuretic Peptide Total Protein Albumin Triglycerides Cholesterol Total LDL Cholesterol HDL Cholesterol TSH Urine Color Urine Appearance Urine pH Ur Specific Marion Urine Protein Urine Glucose (UA) Urine Ketones Urine Blood Urine Nitrite Urine Bilirubin Urine Urobilinogen Ur Leukocyte Esterase Urine WBC (Auto) Urine RBC (Auto) Urine Casts (Auto) U Epithel Cells (Auto) Urine Bacteria (Auto) Urine Osmolality Ur Random Sodium 12/31/18 12/31/18 12/31/18 07:05 07:05 14:19 WBC RBC Hgb Hct MCV MCH MCHC RDW Plt Count MPV Absolute Neuts (auto) Neutrophils % Lymphocytes % Monocytes % Eosinophils % Basophils % Nucleated RBC % PT with INR INR PTT (Actin FS) Sodium 135 L Potassium 4.0 Chloride 102 Carbon Dioxide 25 Anion Gap 8 BUN 16.2 Creatinine 0.6 Est GFR (CKD-EPI)AfAm 95.66 Est GFR (CKD-EPI)NonAf 82.53 POC Glucometer 171 Random Glucose 121 H Hemoglobin A1c % 5.7 Calcium 8.6 Phosphorus 3.5 Magnesium 2.0 Total Bilirubin 0.5 AST 22 ALT 25 Alkaline Phosphatase 57 Creatine Kinase 24 L Troponin I < 0.02 B-Natriuretic Peptide 1515.7 H Total Protein 6.3 L Albumin 3.2 L Triglycerides 45 Cholesterol 185 Total LDL Cholesterol 93 HDL Cholesterol 76 H TSH 0.98 Urine Color Urine Appearance Urine pH Ur Specific Marion Urine Protein Urine Glucose (UA) Urine Ketones Urine Blood Urine Nitrite Urine Bilirubin Urine Urobilinogen Ur Leukocyte Esterase Urine WBC (Auto) Urine RBC (Auto) Urine Casts (Auto) U Epithel Cells (Auto) Urine Bacteria (Auto) Urine Osmolality Ur Random Sodium 12/31/18 01/01/19 01/01/19 16:35 06:00 06:00 WBC RBC Hgb Hct MCV MCH MCHC RDW Plt Count MPV Absolute Neuts (auto) Neutrophils % Lymphocytes % Monocytes % Eosinophils % Basophils % Nucleated RBC % PT with INR INR PTT (Actin FS) 67.0 H Sodium Potassium Chloride Carbon Dioxide Anion Gap BUN Creatinine Est GFR (CKD-EPI)AfAm Est GFR (CKD-EPI)NonAf POC Glucometer Random Glucose Hemoglobin A1c % Calcium Phosphorus Magnesium Total Bilirubin AST ALT Alkaline Phosphatase Creatine Kinase Troponin I B-Natriuretic Peptide Total Protein Albumin Triglycerides Cholesterol Total LDL Cholesterol HDL Cholesterol TSH Urine Color Urine Appearance Urine pH Ur Specific [place] Urine Protein Urine Glucose (UA) Urine Ketones Urine Blood Urine Nitrite Urine Bilirubin Urine Urobilinogen Ur Leukocyte Esterase Urine WBC (Auto) Urine RBC (Auto) Urine Casts (Auto) U Epithel Cells (Auto) Urine Bacteria (Auto) Urine Osmolality 572 Ur Random Sodium 125 01/01/19 01/01/19 01/01/19 06:00 06:48 09:56 WBC 7.8 RBC 3.74 Hgb 12.5 Hct 37.1 MCV 99.2 H MCH 33.4 MCHC 33.6 RDW 13.9 Plt Count 249 MPV 8.4 Absolute Neuts (auto) Neutrophils % Lymphocytes % Monocytes % Eosinophils % Basophils % Nucleated RBC % PT with INR INR PTT (Actin FS) 71.5 H Sodium Potassium Chloride Carbon Dioxide Anion Gap BUN Creatinine Est GFR (CKD-EPI)AfAm Est GFR (CKD-EPI)NonAf POC Glucometer Random Glucose Hemoglobin A1c % Calcium Phosphorus Magnesium Total Bilirubin AST ALT Alkaline Phosphatase Creatine Kinase Troponin I B-Natriuretic Peptide Total Protein Albumin Triglycerides Cholesterol Total LDL Cholesterol HDL Cholesterol TSH Urine Color Yellow Urine Appearance Cloudy Urine pH 7.0 Ur Specific Marion 1.017 Urine Protein Trace Urine Glucose (UA) Negative Urine Ketones Trace H Urine Blood Trace Urine Nitrite Negative Urine Bilirubin Negative Urine Urobilinogen 0.2 Ur Leukocyte Esterase 3+ H Urine WBC (Auto) 84 Urine RBC (Auto) 8.6 Urine Casts (Auto) 13 U Epithel Cells (Auto) 2.0 Urine Bacteria (Auto) 153.6 Urine Osmolality Ur Random Sodium 01/02/19 01/02/19 01/03/19 05:40 09:30 05:35 WBC RBC Hgb Hct MCV MCH MCHC RDW Plt Count MPV Absolute Neuts (auto) Neutrophils % Lymphocytes % Monocytes % Eosinophils % Basophils % Nucleated RBC % PT with INR 15.10 H INR 1.28 H PTT (Actin FS) 31.8 Sodium 138 Potassium 3.9 Chloride 103 Carbon Dioxide 30 Anion Gap 6 L BUN 12.0 Creatinine 0.6 Est GFR (CKD-EPI)AfAm 95.66 Est GFR (CKD-EPI)NonAf 82.53 POC Glucometer Random Glucose 105 Hemoglobin A1c % Calcium 8.6 Phosphorus Magnesium Total Bilirubin 0.8 AST 20 ALT 28 Alkaline Phosphatase 55 Creatine Kinase 46 Troponin I < 0.02 B-Natriuretic Peptide Total Protein 5.9 L Albumin 3.0 L Triglycerides Cholesterol Total LDL Cholesterol HDL Cholesterol TSH Urine Color Yellow Urine Appearance Clear Urine pH 7.0 Ur Specific [place] 1.006 L Urine Protein Negative Urine Glucose (UA) Negative Urine Ketones Negative Urine Blood Trace Urine Nitrite Negative Urine Bilirubin Negative Urine Urobilinogen 0.2 Ur Leukocyte Esterase Negative Urine WBC (Auto) 1 Urine RBC (Auto) 3 Urine Casts (Auto) 0 U Epithel Cells (Auto) 2.1 Urine Bacteria (Auto) 8.4 Urine Osmolality Ur Random Sodium 01/03/19 09:58 WBC 9.4 RBC 3.73 Hgb 12.5 Hct 37.1 MCV 99.5 H MCH 33.5 MCHC 33.7 RDW 13.7 Plt Count 220 MPV 8.3 Absolute Neuts (auto) Neutrophils % Lymphocytes % Monocytes % Eosinophils % Basophils % Nucleated RBC % PT with INR INR PTT (Actin FS) Sodium Potassium Chloride Carbon Dioxide Anion Gap BUN Creatinine Est GFR (CKD-EPI)AfAm Est GFR (CKD-EPI)NonAf POC Glucometer Random Glucose Hemoglobin A1c % Calcium Phosphorus Magnesium Total Bilirubin AST ALT Alkaline Phosphatase Creatine Kinase Troponin I B-Natriuretic Peptide Total Protein Albumin Triglycerides Cholesterol Total LDL Cholesterol HDL Cholesterol TSH Urine Color Urine Appearance Urine pH Ur Specific [place] Urine Protein Urine Glucose (UA) Urine Ketones Urine Blood Urine Nitrite Urine Bilirubin Urine Urobilinogen Ur Leukocyte Esterase Urine WBC (Auto) Urine RBC (Auto) Urine Casts (Auto) U Epithel Cells (Auto) Urine Bacteria (Auto) Urine Osmolality Ur Random Sodium Active Medications Generic Name Dose Route Start Last Admin Trade Name Freq PRN Reason Stop Dose Admin Acetaminophen 650 mg 12/31/18 06:08 01/01/19 09:56 Tylenol - PO 650 mg Q6H PRN Administration PAIN LEVEL 6-10 Apixaban 5 mg 01/01/19 22:00 01/03/19 09:14 Eliquis - PO 5 mg BID FANI Administration Buspirone HCl 5 mg 01/01/19 22:15 01/03/19 09:14 Buspar - PO 5 mg BID FANI Administration Methyl Salicylate 1 applic 12/31/18 22:00 01/03/19 09:17 Nick-Craft - TP 1 applic BID FANI Administration Metoprolol Succinate 50 mg 01/03/19 11:23 Toprol Xl - PO DAILY FANI Metoprolol Tartrate 5 mg 12/31/18 11:33 Lopressor Injection - IVPUSH Q4H PRN HYPERTENSION Ranitidine HCl 150 mg 12/31/18 10:00 01/03/19 09:14 Zantac - PO 150 mg DAILY FANI Administration Microbiology 01/02/19 09:30 Urine - Urine Clean Catch Urine Culture - Final NO GROWTH OBTAINED Constitutional: Yes: No Distress, Calm Eyes: Yes: Conjunctiva Clear HENT: Yes: Atraumatic Cardiovascular: Yes: Pulse Irregular Respiratory: Yes: Regular, CTA Bilaterally Gastrointestinal: Yes: Normal Bowel Sounds, Soft Musculoskeletal: Yes: Muscle Weakness Extremities: Yes: WNL Edema: No Neurological: Yes: Alert, Tremors Psychiatric: Yes: Alert Labs: CBC, BMP 01/03/19 09:58 01/03/19 05:35 Discharge Summary Problems reviewed: Yes Reason For Visit: SOB AFIB Current Active Problems Atrial fibrillation by electrocardiogram (Acute) Chest pain (Acute) Dyspnea (Acute) Hyponatremia (Acute) Shortness of breath (Acute) Hospital Course: 88 yr old female sent in from PCP for new onset afib, for last two days she was not feeling well with shortness of breath and chest discomfort went to pmd today got ekg showed afib was sent to ER Patient evaluated by cardiology and was started on Heparin drip then bridged to Eliquis and started on Metoprolol for rate control. Condition: Stable - Instructions Diet, Activity, Other Instructions: follow up [facility] PMD in 1 week of discharge follow up with [facility] Dr Abebe after discharge continue with medication regimen as scheduled monitor for bleeding and notify PMD return to ER if fall and hits her head, chest pain, respiratory distress, altered mental status NEW MEDICATIONS: Eliquis and Metoprolol Stop taking Midodrine Referrals: Andres Abebe MD [Staff Physician] - Maryjane Hennessy MD [Primary Care Provider] - Disposition: VNS/HOME HEALTH CARE - Home Medications Comprehensive Discharge Medication List: Ambulatory Orders Aspirin 81 mg PO DAILY #0 tab.chew 07/21/13 Cetirizine HCl [Zyrtec -] 10 mg PO DAILY 07/14/14 Polyethylene Glycol [Polyox Wsr-301] 1 gm MC DAILY 12/29/14 Buspirone HCl [Buspar -] 5 mg PO BID 02/27/16 Furosemide 20 mg PO DAILY 04/04/17 Midodrine HCl 7.5 mg PO TID 04/04/17 Ranitidine HCl 150 mg PO DAILY 04/04/17 L.acidoph,Paracasei, B.lactis [Probiotic] 1 cap PO DAILY 10/21/17 Ciprofloxacin [Cipro -] 500 mg PO Q12H #14 tablet 09/21/18 Gabapentin 100 mg PO BID 09/21/18 Acetaminophen [Tylenol .Regular Strength -] 650 mg PO Q6H PRN tablet 01/03/19 Apixaban [Eliquis -] 5 mg PO BID tablet 01/03/19 Apixaban [Eliquis -] 5 mg PO BID #60 tablet 01/03/19 Furosemide [Lasix -] 20 mg PO DAILY tablet 01/03/19 Methyl Salicylate/Menthol Oint [Analgesic [place] -] 1 applic TP BID applic Metoprolol Succinate [Toprol XL -] 50 mg PO DAILY tab.sr.24h 01/03/19 Metoprolol Succinate [Toprol XL -] 50 mg PO DAILY #30 tablet 01/03/19 Metoprolol Tartrate Injection [Lopressor Injection -] 5 mg IVPUSH Q4H PRN vial 01/03/19 Ranitidine [Zantac -] 150 mg PO DAILY tablet 01/03/19
[2019-01-03 14:19] VITALS: PULSE 82
[2019-01-03 17:28] VITALS: BP 123/80
== END 2019-01-03 19:05 | disposition home health service (06) | DRG 309 ==
LOC: JER 13:13 → JERBED 15:39 → J2W 12-31 15:22
PROVIDERS: ADMIT Family Medicine; ATTEND Family Medicine
DX: I48.91 Unspecified atrial fibrillation (principal); G90.3 Multi-system degeneration of the autonomic nervous system; E87.1 Hypo-osmolality and hyponatremia; I10 Essential (primary) hypertension; I08.0 Rheumatic disorders of both mitral and aortic valves; F41.9 Anxiety disorder, unspecified; I25.10 Atherosclerotic heart disease of native coronary artery without angina pectoris; R42 Dizziness and giddiness; G20 Parkinson's disease; R10.9 Unspecified abdominal pain; R06.02 Shortness of breath
CPT/HCPCS: 36415; 71045-TC-FY; 74230-TC-FY; 80048; 80053; 80061; 81003; 82550; 82962; 83036; 83721; 83735; 83880; 83935; 84100; 84300; 84443; 84484; 85025; 85027; 85610; 85730; 87086; 92611-GN; 93005; 93010; 93306-TC; 97116-GP; 97162-GP; 99285-25; J1644; J7030

== ENCOUNTER 2019-04-21 13:24 | Emergency (ER) | payer OTHER ==
--- NOTE | 2019-04-21 13:27 | PDOC ---
History of Present Illness - General Chief Complaint: Injury Stated Complaint: HEAD INJURY S/P FALL Time Seen by Provider: 04/21/19 13:27 - History of Present Illness Initial Comments: HPI: 88yo F with PMH of afib on eliquis presenting after hitting her head. Patient's daughters are at the bedside providing collateral history. Around 9am patient was walking with her walker and turned left to the closet when she momentarily lost her balance and hit the right side of her head against the door frame. No loss of consciousness, no nausea, or vomiting. Remembers the entire episode. No falls. No prodrome prior to hitting her head: no dizziness, weakness, chest pain , or shortness of breath. Took some tylenol at 10am for mild head pain. Reports mild neck pain. Daughters state she is at her baseline. Denies fever or chills. PCP: Dr. Hennessy ROS: Constitutional: no fever, no chills HEENT: no throat pain, no dysphagia Cardiovascular: no chest pain, no palpitations Respiratory: no cough, no shortness of breath Gastrointestinal: no abdominal pain, no nausea Genitourinary: no dysuria, no hematuria Musculoskeletal: no myalgia, no arthralgia Skin: no rash, no itching Neurologic: +head pain, no weakness Psych: no agitation, no anxiety PE: General: Awake, alert, and fully oriented, in no acute distress Head: No signs of trauma Eyes: EOMI, sclera anicteric ENT: Moist mucus membranes Neck: Endorsing some neck tenderness to palpation, but not midline Lungs: Lungs clear, Normal breath sounds Cardio: Regular rhythm, S1 and S2 present Abdomen: Soft, nontender. No guarding, no rebound, no masses Extremities: Normal range of motion, Distal pulses present SKIN: Warm, Dry, normal turgor Neurologic: Cranial nerves II through XII intact. Normal speech, sensation, strength, coordination. Ambulating with walker at baseline ED Course/MDM: DDX including but not limited to mechanical fall, syncope, anemia, ACS Presentation consistent with mechanical fall As she is on eliquis and is complaining of neck pain, we will obtain imaging to rule out bleed/fracture CT Head CT Cspine 04/21/19 14:36 CT: "EXAM#: TYPE/EXAM: RESULT: CT/HEAD CT WITHOUT CONTRAST CT/CERVICAL SPINE CT W/O CONTR Status post fall. Rule out bleed. On blood thinners. CT scan of the brain. A noncontrast CT scan of the brain was performed. Coronal and sagittal reformatted images were not obtained. There is moderate volume loss and ventricular dilatation. Mild periventricular chronic microvascular ischemic changes are present No mass lesion, gross acute infarct or intracranial hemorrhage are identified. Visualized paranasal sinuses and mastoid air cells are well aerated. Calcification of the cavernous carotid arteries are noted. The calvarium is intact . Impression: Moderate atrophy. No CT evidence of acute intracranial pathology is identified. The calvarium is intact. Correlate clinically to determine further evaluation and follow-up CT scan of the cervical spine without intravenous contrast Coronal and sagittal reformatted images are slightly technically suboptimal. No gross fracture, subluxation or prevertebral soft tissue swelling is seen. No jumped facets are identified. At C-C4 level there is mild central and right paracentral disc osteophyte complex as well as mild right uncovertebral hypertrophy moderately narrowing the right foramen Multilevel significant bilateral facet hypertrophy is present. Visualized portion of the airway appears unremarkable. No gross enlarged lymph nodes are identified. Lung windows at the thoracic inlet demonstrates mild biapical pleural thickening. IMPRESSION: Slightly limited examination due to technically slightly suboptimal reformatted images. Otherwise , the alignment is satisfactory without gross evidence of a fracture or subluxation. No jumped facets are identified. Reported By: Salina Wilkinson MD [id number] " 04/21/19 15:13 CT negative for acute pathology Patient is ambulating with walker at baseline Patient and daughter instructed on return precautions Stable for discharge Past History - Past Medical History Allergies/Adverse Reactions: Allergies Allergy/AdvReac Type Severity Reaction Status Date / Time No Known Allergies Allergy Verified 04/21/19 13:36 Home Medications: Ambulatory Orders Cetirizine HCl [Zyrtec -] 10 mg PO DAILY 07/14/14 Polyethylene Glycol [Polyox Wsr-301] 1 gm MC DAILY 12/29/14 Buspirone HCl [Buspar -] 5 mg PO BID 02/27/16 Furosemide 40 mg PO DAILY 04/04/17 Midodrine HCl 7.5 mg PO TID 04/04/17 Metoprolol Succinate [Toprol XL -] 50 mg PO DAILY tab.sr.24h 01/03/19 Ranitidine [Zantac -] 150 mg PO DAILY tablet 01/03/19 Apixaban [Eliquis -] 2.5 mg PO BID 04/21/19 Furosemide [Lasix -] 40 mg PO DAILY 04/21/19 Lidocaine 5% Patch [Lidoderm -] 1 patch TD ASDIR 04/21/19 Metoprolol Succinate [Toprol XL -] 25 mg PO DAILY 04/21/19 Ondansetron [Zofran *Odt*] 4 mg SL PRN PRN 04/21/19 Anemia: No Asthma: No 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) CVA: No COPD: No CHF: Yes Dementia: No Diabetes: No GI Disorders: Yes (DIVERTICULITIS) Disorders: No HTN: Yes Hypercholesterolemia: Yes Liver Disease: No Psychiatric Problems: Yes (anxiety?) Seizures: No Thyroid Disease: No - Surgical History Abdominal Surgery: Yes Appendectomy: No Cardiac Surgery: No Cholecystectomy: No Lung Surgery: No Neurologic Surgery: No Orthopedic Surgery: No - Immunization History Td Vaccination: Yes TDAP Vaccination: Yes Immunization Up to Date: Yes - Psycho Social/Smoking Cessation Hx Smoking Status: No Smoking History: Never smoked Have you smoked in the past 12 months: No Number of Cigarettes Smoked Daily: 0 Hx Alcohol Use: No Drug/Substance Use Hx: No Substance Use Type: None Hx Substance Use Treatment: No Discharge - Discharge Information Problems reviewed: Yes Clinical Impression/Diagnosis: Head injury Qualifiers: Encounter type: initial encounter Qualified Code(s): S09.90XA - Unspecified injury of head, initial encounter Condition: Stable Disposition: HOME - Follow up/Referral - Patient Discharge Instructions Patient Printed Discharge Instructions: DI for Closed Head Injury Additional Instructions: You came into the emergency department after hitting your head. We performed a CT scan of your head and neck which did not indicate acute pathology. Follow-up with your primary care doctor this week to discuss this ED visit and to ensure you are progressing appropriately. Call and make an appointment. Your workup is not complete until you do so. Immediate medical attention is required if you experience: severe headache, fever and chills, nausea and vomiting, lightheadedness, inability to breathe or very rapid breathing, rapid irregular heartbeat, chest pain, or trouble breathing. If you think you are having an emergency, call for emergency medical services or present to the emergency department right away ==== Llegaste al departamento de emergencias despus de golpearte la tanisha. Realizamos kathy tomografa computarizada de la tanisha y el tangela que no indicaba kathy patologa aguda. Gregorio un seguimiento con harrell mdico de atencin primaria esta semana para analizar esta visita al servicio de urgencias y asegurarse de que est progresando adecuadamente. Llame y gregorio kathy wes. Harrell trabajo no est completo hasta que lo gregorio. Se requiere atencin mdica inmediata si experimenta: dolor de tanisha intenso, fiebre y escalofros, nuseas y vmitos, aturdimiento, incapacidad para respirar o respiracin muy rpida, latidos cardacos irregulares rpidos, dolor en el pecho o dificultad para respirar. Si rik que est teniendo kathy emergencia , llame a los servicios mdicos de emergencia o presntese de inmediato en el departamento de emergencias. - Post Discharge Activity
[2019-04-21 13:44] VITALS: BP 103/57; PULSE 67; TEMP 98.5; BMI 25.2
--- NOTE | 2019-04-21 15:57 | PDOC ---
Attending Attestation - Resident Resident Name: Temitope Thompson - ED Attending Attestation I have performed the following: I have examined & evaluated the patient, The case was reviewed & discussed with the resident, I agree w/resident's findings & plan, Exceptions are as noted - HPI HPI: 04/21/19 15:55 88 yo F h/o afib, on eliquis here s/p head injury. pt was walking lost her balance, accidently hit her head on door frame. no loc. no headache. minor pain at side of impact. no n/v since. no weakness. no other complaints. does c/o neck pain. no new weakness happened earlier today. - Physicial Exam PE: 04/21/19 15:56 awake alert lungs clear bilat heart rrr no mrg abd soft nt nd. right lateral head ttp. no visible skull / scalp hemotoma or laceration. no midline spinal tenderness. awake alert. - Medical Decision Making 04/21/19 15:57 88 yo f with afib, on eliquis s/p head impact. plan ct head. ct head/ c spine negative for acute injury. will dc home wtih warning instructions to prompt repeat evaluation.
== END 2019-04-21 15:35 | disposition home or self-care (01) ==
LOC: FER 13:24
DX: S09.90XA Unspecified injury of head, initial encounter (principal); W18.39XA Other fall on same level, initial encounter; Y93.89 Activity, other specified; Y92.89 Other specified places as the place of occurrence of the external cause; F41.9 Anxiety disorder, unspecified; E78.00 Pure hypercholesterolemia, unspecified; I10 Essential (primary) hypertension; K57.92 Diverticulitis of intestine, part unspecified, without perforation or abscess without bleeding; I50.9 Heart failure, unspecified
CPT/HCPCS: 70450-TC; 72125-TC; 99282-25

== ENCOUNTER 2021-03-04 12:33 | Emergency (ER) | payer OTHER ==
[2021-03-04 13:07] VITALS: TEMP 97; BMI 30.2
[2021-03-04] MEDS ORDERED: LIDOCAINE 5% TOPICAL PATCH TP ONE (14:06)
[2021-03-04] MEDS ORDERED: ACETAMINOPHEN 1000 MG/100 ML VIAL IVPB ONE (14:49)
[2021-03-04] MEDS ORDERED: ACETAMINOPHEN INJECTION 100 ML IVPB ONE (15:18)
[2021-03-04] MEDS ORDERED: LIDOCAINE 5% TOPICAL PATCH ONE (15:18)
[2021-03-04 15:53] LABS: BASO % 0.6 % (0-2.0); EOS % 0.6 % (0-4.5); HEMOGLOBIN 12.4 GM/dL (10.7-15.3); LYMPH % 26.2 % (8-40); MCH 31.3 pg (25.7-33.7); MCHC 33.6 g/dl (32.0-36.0); MEAN PLT VOLUME 8.4 fl (7.5-11.1); MONO % 9.8 % (3.8-10.2); NEUT % 62.8 % (42.8-82.8); PLATELET COUNT 212 10^3/uL (134-434); RBC 3.98 M/mm3 (3.60-5.2); RDW 16.5 % (11.6-15.6); WHITE BLOOD COUNT 6.6 K/mm3 (4.0-10.0)
[2021-03-04 15:58] LABS: INR 1.26 (0.83-1.09); PROTHROMBIN TIME (PATIENT) 14.8 SEC (9.7-13.0)
[2021-03-04 16:00] LABS: EPI CELLS 13 /uL (0-25.1); HYALINE CASTS 1 /uL (0-3.1); PH,URINE 7.5 (5.0-8.0); URINE APPEARANCE CLEAR; URINE BACTERIA 136 /uL (0-1359); URINE BILIRUBIN NEGATIVE (NEGATIVE); URINE COLOR YELLOW; URINE GLUCOSE (UA) NEGATIVE (NEGATIVE); URINE KETONE NEGATIVE (NEGATIVE); URINE LEUK ESTERASE NEGATIVE (NEGATIVE); URINE NITRITE NEGATIVE (NEGATIVE); URINE PROTEIN NEGATIVE (NEGATIVE); URINE RBC 36 /uL (0-23.9); URINE UROBILINOGEN 0.2 mg/dL (0.2-1.0); URINE WBC 4 /uL (0-25.8)
[2021-03-04 16:00] LABS: CHLORIDE 98 mmol/L (98-107); SODIUM 137 mmol/L (136-145)
[2021-03-04 16:01] LABS: ACTIVATED PTT 32.1 SECONDS (25.2-36.5)
[2021-03-04 16:04] LABS: ALBUMIN 3.2 g/dl (3.4-5.0); CALCIUM 8.8 mg/dL (8.5-10.1)
[2021-03-04 16:05] LABS: ANION GAP 9 MMOL/L (8-16); BLOOD UREA NITROGEN 18.1 mg/dL (7-18); CO2 31 mmol/L (21-32); GLUCOSE,RANDOM 110 mg/dL (74-106)
[2021-03-04 16:08] LABS: CREATININE 0.7 mg/dL (0.55-1.3); SGOT/AST 43 U/L (15-37); SGPT/ALT 25 U/L (13-61)
[2021-03-04 16:09] LABS: TOT PROT 7.1 g/dl (6.4-8.2)
[2021-03-04 16:10] LABS: ALK PHOS 102 U/L (45-117)
[2021-03-04 16:38] VITALS: BP 125/74; PULSE 64
[2021-03-04] MEDS ORDERED: LIDOCAINE PATCH REMOVAL MC ONE (22:00)
== END 2021-03-04 17:10 | disposition home or self-care (01) ==
LOC: JER 12:33
PROC: 3E033GC Introduction of Other Therapeutic Substance into Peripheral Vein, Percutaneous Approach (ICD-10-PCS; principal; 2021-03-04)
DX: M54.50 Low back pain, unspecified (principal); M25.561 Pain in right knee; M25.562 Pain in left knee; W19.XXXA Unspecified fall, initial encounter
CPT/HCPCS: 36415; 70450-TC; 71045-TC-FY; 72125-TC; 72131-TC; 73502-TC-LT-FY; 73523-TC-FY; 73562-TC-LT-FY; 73562-TC-RT-FY; 80053; 81003; 82550; 84484; 85025; 85610; 85730; 87086; 87186; 93005; 93010; 99285-25; J0131

== ENCOUNTER 2021-03-21 09:03 | Inpatient (IN) | payer OTHER ==
[2021-03-21] MEDS ORDERED: ACETAMINOPHEN 325 MG TABLET (FP) PO ONE (09:56)
[2021-03-21] MEDS ORDERED: ACETAMINOPHEN 325 MG TABLET (FP) ONE (10:01)
[2021-03-21] MEDS ORDERED: ASPIRIN 81 MG CHEWABLE TABLETS PO ONE (13:55)
[2021-03-21] MEDS ORDERED: ALBUTEROL SO4 2.5/IPRATROPIUM 0.5 INH SOL 3 ML VIAL.NEB. NEB ONE ×5 (14:15→16:06)
[2021-03-21] MEDS ORDERED: ASPIRIN 81 MG CHEWABLE TABLETS ONE (14:26)
[2021-03-21 14:42] LABS: BASO % 0.3 % (0-2.0); EOS % 0.3 % (0-4.5); HEMATOCRIT 35.4 % (32.4-45.2); HEMOGLOBIN 11.8 GM/dL (10.7-15.3); MCH 31.3 pg (25.7-33.7); MCHC 33.2 g/dl (32.0-36.0); MEAN CELL VOLUME 94.2 fl (80-96); MEAN PLT VOLUME 8.6 fl (7.5-11.1); MONO % 8.3 % (3.8-10.2); NEUT % 76.1 % (42.8-82.8); PLATELET COUNT 187 10^3/uL (134-434); RBC 3.76 M/mm3 (3.60-5.2); WHITE BLOOD COUNT 7.9 K/mm3 (4.0-10.0)
[2021-03-21 14:49] LABS: INR 1.31 (0.83-1.09); PROTHROMBIN TIME (PATIENT) 14.7 SEC (9.7-13.0)
[2021-03-21 14:52] LABS: ACTIVATED PTT 31.3 SECONDS (25.2-36.5)
[2021-03-21 15:04] LABS: CHLORIDE 97 mmol/L (98-107); SODIUM 133 mmol/L (136-145)
[2021-03-21 15:06] LABS: ALBUMIN 3.3 g/dl (3.4-5.0); ANION GAP 9 MMOL/L (8-16); BLOOD UREA NITROGEN 17.2 mg/dL (7-18); CO2 26 mmol/L (21-32); GLUCOSE,RANDOM 113 mg/dL (74-106)
[2021-03-21 15:09] LABS: CREATININE 0.9 mg/dL (0.55-1.3); SGOT/AST 49 U/L (15-37); SGPT/ALT 31 U/L (13-61); TRIGLYCERIDES 57 mg/dL (0-150)
[2021-03-21 15:11] LABS: CHOLESTEROL 186 mg/dL (50-200); LDL CHOLESTEROL (ONLY SJRH) 99 mg/dL (5-100)
[2021-03-21 15:12] LABS: BILIRUBIN,TOTAL 1.1 mg/dL (0.2-1)
[2021-03-21 15:13] LABS: ALK PHOS 88 U/L (45-117); HDL CHOLESTEROL 68 mg/dL (40-60)
[2021-03-21] MEDS ORDERED: ONDANSETRON 4 MG/2 ML VIAL IVPUSH ONE (15:35)
[2021-03-21] MEDS ORDERED: ACETAMINOPHEN 1000 MG/100 ML BAG IVPB ONE (15:35)
[2021-03-21] MEDS: SODIUM CHLORIDE 1,000 ML IV SCH (15:35)
[2021-03-21] MEDS ORDERED: ONDANSETRON 4 MG/2 ML VIAL ONE (15:44)
[2021-03-21] MEDS ORDERED: ACETAMINOPHEN INJECTION 100 ML IVPB ONE (15:44)
[2021-03-22] MEDS ORDERED: ASPIRIN COATED 81 MG TABLET.EC PO SCH (10:00)
[2021-03-22] MEDS ORDERED: FUROSEMIDE 40 MG TABLET (FP) PO SCH (10:00)
[2021-03-22] MEDS ORDERED: METOPROLOL TARTRATE 25 MG TABLET (FP) PO SCH (10:15)
[2021-03-22] MEDS ORDERED: ASPIRIN COATED 81 MG TABLET.EC ONE (11:04)
[2021-03-22] MEDS ORDERED: METOPROLOL TARTRATE 25 MG TABLET (FP) ONE (11:05)
[2021-03-22] MEDS ORDERED: PT OWN MED DRAWER 7, Y5N ONE (11:05)
[2021-03-22] MEDS ORDERED: busPIRone HCL 5 MG TABLET ONE (11:05)
[2021-03-22] MEDS ORDERED: FUROSEMIDE 40 MG TABLET (FP) ONE (11:05)
[2021-03-22] MEDS ORDERED: APIXABAN 2.5 MG TABLET ONE (11:05)
[2021-03-22] MEDS: busPIRone HCL 5 MG TABLET PO SCH ×2 (11:13→21:36)
[2021-03-22] MEDS: APIXABAN 2.5 MG TABLET PO SCH ×2 (11:13→21:36)
[2021-03-22] MEDS: SODIUM CHLORIDE 1,000 ML IV SCH (14:55)
[2021-03-22] MEDS: MIDODRINE HCL 5 MG TABLET PO SCH ×2 (14:55→17:52)
[2021-03-22] MEDS: ACETAMINOPHEN 325 MG TABLET (FP) PO PRN (17:04)
[2021-03-22] MEDS ORDERED: ATORVASTATIN CA 20 MG TABLET (FP) PO SCH (22:00)
[2021-03-23] MEDS ORDERED: METOPROLOL TARTRATE 25 MG TABLET (FP) PO SCH (08:25)
[2021-03-23] MEDS: APIXABAN 2.5 MG TABLET PO SCH ×2 (09:48→21:26)
[2021-03-23] MEDS: MIDODRINE HCL 2.5 MG TABLET PO SCH ×3 (09:49→17:17)
[2021-03-23] MEDS: busPIRone HCL 5 MG TABLET PO SCH ×2 (09:49→21:26)
[2021-03-23] MEDS ORDERED: FUROSEMIDE 40 MG TABLET (FP) PO SCH (10:00)
[2021-03-23] MEDS: FUROSEMIDE 40 MG/4 ML INJECTABLE VIAL IVPUSH SCH (11:46)
[2021-03-23] MEDS: ALBUTEROL SO4 0.083% IH SOL 2.5 MG/3 ML VIAL.NEB. NEB PRN (15:29)
[2021-03-23] MEDS: ATORVASTATIN CA 80 MG TABLET (FP) PO SCH (21:26)
[2021-03-23] MEDS: metoPROLOL SUCCINATE 25 MG TAB.SR.24H (FP) PO SCH (21:26)
[2021-03-24] MEDS: ALBUTEROL SO4 0.083% IH SOL 2.5 MG/3 ML VIAL.NEB. NEB PRN ×2 (06:30→17:31)
[2021-03-24] MEDS: FUROSEMIDE 40 MG/4 ML INJECTABLE VIAL IVPUSH SCH (09:39)
[2021-03-24] MEDS: MIDODRINE HCL 2.5 MG TABLET PO SCH ×3 (09:39→17:13)
[2021-03-24] MEDS: busPIRone HCL 5 MG TABLET PO SCH ×2 (09:39→21:31)
[2021-03-24] MEDS: APIXABAN 2.5 MG TABLET PO SCH ×2 (09:39→21:31)
[2021-03-24] MEDS ORDERED: POLYETHYLENE GLYCOL (HEALTHYLAX) 3350 17 GM PACKET PO SCH (16:30)
[2021-03-24] MEDS: ATORVASTATIN CA 80 MG TABLET (FP) PO SCH (21:31)
[2021-03-24] MEDS: metoPROLOL SUCCINATE 25 MG TAB.SR.24H (FP) PO SCH (21:31)
[2021-03-25] MEDS: POLYETHYLENE GLYCOL (HEALTHYLAX) 3350 17 GM PACKET PO SCH ×2 (10:03→21:30)
[2021-03-25] MEDS: busPIRone HCL 5 MG TABLET PO SCH ×2 (10:03→21:30)
[2021-03-25] MEDS: FUROSEMIDE 40 MG/4 ML INJECTABLE VIAL IVPUSH SCH (10:03)
[2021-03-25] MEDS: MIDODRINE HCL 2.5 MG TABLET PO SCH ×3 (10:03→17:57)
[2021-03-25] MEDS: APIXABAN 2.5 MG TABLET PO SCH ×2 (10:03→21:30)
[2021-03-25] MEDS: HYDROCORTISONE 2.5% TOPICAL CREAM 30 GM TUBE TP SCH ×2 (14:10→21:30)
[2021-03-25 17:43] LABS: CALCIUM 8.5 mg/dL (8.5-10.1)
[2021-03-25 17:44] LABS: BLOOD UREA NITROGEN 13.1 mg/dL (7-18)
[2021-03-25 17:47] LABS: CREATININE 0.6 mg/dL (0.55-1.3)
[2021-03-25] MEDS: ATORVASTATIN CA 80 MG TABLET (FP) PO SCH (21:30)
[2021-03-25] MEDS: metoPROLOL SUCCINATE 25 MG TAB.SR.24H (FP) PO SCH (21:31)
[2021-03-26 08:30] LABS: CALCIUM 8.3 mg/dL (8.5-10.1)
[2021-03-26 08:31] LABS: BLOOD UREA NITROGEN 13.3 mg/dL (7-18)
[2021-03-26 08:33] LABS: CREATININE 0.7 mg/dL (0.55-1.3)
[2021-03-26] MEDS: HYDROCORTISONE 2.5% TOPICAL CREAM 30 GM TUBE TP SCH ×2 (10:04→22:14)
[2021-03-26] MEDS ORDERED: PT OWN MED DRAWER 7, Y5N ONE ×3 (10:25→19:02)
[2021-03-26] MEDS: busPIRone HCL 5 MG TABLET PO SCH ×2 (10:35→22:12)
[2021-03-26] MEDS: MIDODRINE HCL 2.5 MG TABLET PO SCH ×3 (10:36→19:04)
[2021-03-26] MEDS: FUROSEMIDE 40 MG/4 ML INJECTABLE VIAL IVPUSH SCH (10:36)
[2021-03-26] MEDS: APIXABAN 2.5 MG TABLET PO SCH ×2 (10:36→22:12)
[2021-03-26] MEDS: POLYETHYLENE GLYCOL (HEALTHYLAX) 3350 17 GM PACKET PO SCH ×2 (10:36→22:13)
[2021-03-26] MEDS: ATORVASTATIN CA 80 MG TABLET (FP) PO SCH (22:12)
[2021-03-26] MEDS: metoPROLOL SUCCINATE 25 MG TAB.SR.24H (FP) PO SCH (22:12)
[2021-03-27 07:46] LABS: ALBUMIN 3.1 g/dl (3.4-5.0); BLOOD UREA NITROGEN 14.1 mg/dL (7-18); CALCIUM 8.8 mg/dL (8.5-10.1)
[2021-03-27 07:49] LABS: CREATININE 0.6 mg/dL (0.55-1.3)
[2021-03-27 07:51] LABS: TOT PROT 6.8 g/dl (6.4-8.2)
[2021-03-27] MEDS ORDERED: FUROSEMIDE 40 MG TABLET (FP) PO SCH (10:00)
[2021-03-27] MEDS: APIXABAN 2.5 MG TABLET PO SCH ×2 (10:00→22:31)
[2021-03-27] MEDS ORDERED: PT OWN MED DRAWER 7, Y5N ONE ×3 (10:32→22:10)
[2021-03-27] MEDS: HYDROCORTISONE 2.5% TOPICAL CREAM 30 GM TUBE TP SCH ×2 (10:52→22:32)
[2021-03-27] MEDS: busPIRone HCL 5 MG TABLET PO SCH ×2 (10:53→22:31)
[2021-03-27] MEDS: MIDODRINE HCL 2.5 MG TABLET PO SCH ×3 (10:54→17:08)
[2021-03-27] MEDS: MIDODRINE HCL 5 MG, MIDODRINE HCL 2.5 MG PO SCH ×3 (12:54→17:08)
[2021-03-27] MEDS: POLYETHYLENE GLYCOL (HEALTHYLAX) 3350 17 GM PACKET PO SCH ×2 (12:54→21:27)
[2021-03-27] MEDS: FUROSEMIDE 40 MG TABLET (FP) PO SCH (15:05)
[2021-03-27] MEDS: ATORVASTATIN CA 80 MG TABLET (FP) PO SCH (22:31)
[2021-03-27] MEDS: metoPROLOL SUCCINATE 25 MG TAB.SR.24H (FP) PO SCH (22:31)
[2021-03-28] MEDS: FUROSEMIDE 40 MG TABLET (FP) PO SCH ×2 (07:04→15:45)
[2021-03-28 08:28] LABS: BLOOD UREA NITROGEN 18.4 mg/dL (7-18)
[2021-03-28 08:30] LABS: CALCIUM 9.3 mg/dL (8.5-10.1)
[2021-03-28 08:31] LABS: CREATININE 0.7 mg/dL (0.55-1.3)
[2021-03-28] MEDS ORDERED: PT OWN MED DRAWER 7, Y5N ONE ×2 (10:01→15:39)
[2021-03-28] MEDS: POLYETHYLENE GLYCOL (HEALTHYLAX) 3350 17 GM PACKET PO SCH ×2 (10:09→21:20)
[2021-03-28] MEDS: busPIRone HCL 5 MG TABLET PO SCH ×2 (10:11→22:04)
[2021-03-28] MEDS: ACETAMINOPHEN 325 MG TABLET (FP) PO PRN (10:11)
[2021-03-28] MEDS: APIXABAN 2.5 MG TABLET PO SCH ×2 (10:11→22:04)
[2021-03-28] MEDS: MIDODRINE HCL 2.5 MG TABLET PO SCH ×3 (10:11→19:08)
[2021-03-28] MEDS: HYDROCORTISONE 2.5% TOPICAL CREAM 30 GM TUBE TP SCH ×2 (10:15→22:03)
[2021-03-28 14:52] VITALS: BMI 29.7
[2021-03-28] MEDS: metoPROLOL SUCCINATE 25 MG TAB.SR.24H (FP) PO SCH (22:04)
[2021-03-28] MEDS: ATORVASTATIN CA 80 MG TABLET (FP) PO SCH (22:04)
[2021-03-29] MEDS: FUROSEMIDE 40 MG TABLET (FP) PO SCH ×2 (05:32→14:07)
[2021-03-29 07:54] LABS: CALCIUM 9.4 mg/dL (8.5-10.1)
[2021-03-29 07:55] LABS: BLOOD UREA NITROGEN 16.8 mg/dL (7-18)
[2021-03-29 07:58] LABS: CREATININE 0.9 mg/dL (0.55-1.3)
[2021-03-29] MEDS ORDERED: PT OWN MED DRAWER 7, Y5N ONE (09:03)
[2021-03-29] MEDS: ACETAMINOPHEN 325 MG TABLET (FP) PO PRN (09:07)
[2021-03-29] MEDS: APIXABAN 2.5 MG TABLET PO SCH (09:08)
[2021-03-29] MEDS: POLYETHYLENE GLYCOL (HEALTHYLAX) 3350 17 GM PACKET PO SCH (09:08)
[2021-03-29] MEDS: MIDODRINE HCL 2.5 MG TABLET PO SCH ×3 (09:27→17:20)
[2021-03-29] MEDS: busPIRone HCL 5 MG TABLET PO SCH (09:27)
[2021-03-29] MEDS: HYDROCORTISONE 2.5% TOPICAL CREAM 30 GM TUBE TP SCH (09:28)
[2021-03-29 18:39] VITALS: BP 141/73; PULSE 75; TEMP 97.6
== END 2021-03-29 21:00 | disposition home or self-care (01) | DRG 562 ==
LOC: JER 09:03 → JERBED 13:58 → JICU-2 03-22 14:15 → J2W 03-22 15:05 → J4S 03-29 00:31
PROVIDERS: ADMIT Family Medicine; ATTEND Family Medicine
DX: S42.035A Nondisplaced fracture of lateral end of left clavicle, initial encounter for closed fracture (principal); I50.33 Acute on chronic diastolic (congestive) heart failure; I48.91 Unspecified atrial fibrillation; I11.0 Hypertensive heart disease with heart failure; W19.XXXA Unspecified fall, initial encounter; Y93.9 Activity, unspecified; Y92.89 Other specified places as the place of occurrence of the external cause; Y99.9 Unspecified external cause status; I95.1 Orthostatic hypotension
CPT/HCPCS: 36415; 70450-TC; 70496-TC; 70498-TC; 70551-TC; 71045-TC-FY; 72125-TC; 72128-TC; 72131-TC; 73000-TC-LT-FY; 73030-TC-LT-FY; 73523-TC-FY; 74018-TC-FY; 80048; 80053; 80061; 82550; 84484; 85025; 85610; 85730; 86850; 86900; 86901; 93005; 93010; 94640; 94761; 97116-GP; 97161-GP; 99285-25; C9803-CS; Q9967; U0003; U0005

== ENCOUNTER 2021-06-10 12:06 | Inpatient (IN) | payer OTHER ==
[2021-06-10] MEDS ORDERED: ACETAMINOPHEN 1000 MG/100 ML BAG IVPB ONE (14:45)
[2021-06-10 14:51] LABS: BASO % 0.5 % (0-2.0); EOS % 1.5 % (0-4.5); HEMATOCRIT 38.6 % (32.4-45.2); HEMOGLOBIN 12.8 GM/dL (10.7-15.3); MCH 32.1 pg (25.7-33.7); MCHC 33.2 g/dl (32.0-36.0); MEAN CELL VOLUME 96.8 fl (80-96); MEAN PLT VOLUME 8.7 fl (7.5-11.1); MONO % 11.4 % (3.8-10.2); NEUT % 56.6 % (42.8-82.8); PLATELET COUNT 221 10^3/uL (134-434); RBC 3.99 M/mm3 (3.60-5.2); RDW 16.2 % (11.6-15.6); WHITE BLOOD COUNT 5.5 K/mm3 (4.0-10.0)
[2021-06-10 14:59] LABS: INR 1.37 (0.83-1.09); PROTHROMBIN TIME (PATIENT) 15.8 SEC (9.7-13.0)
[2021-06-10 15:02] LABS: ACTIVATED PTT 34.8 SECONDS (25.2-36.5)
[2021-06-10 15:13] LABS: BLOOD UREA NITROGEN 21.5 mg/dL (7-18); CALCIUM 9.2 mg/dL (8.5-10.1); MAGNESIUM 2.4 mg/dL (1.8-2.4)
[2021-06-10 15:14] LABS: ALBUMIN 3.6 g/dl (3.4-5.0)
[2021-06-10 15:16] LABS: CREATININE 0.8 mg/dL (0.55-1.3)
[2021-06-10] MEDS ORDERED: ACETAMINOPHEN INJECTION 100 ML IVPB ONE (15:16)
[2021-06-10 15:18] LABS: BILIRUBIN,TOTAL 0.9 mg/dL (0.2-1); TOT PROT 7.9 g/dl (6.4-8.2)
[2021-06-10 15:22] LABS: N-TERMINAL BNP 2310.8 pg/ml (5-450)
[2021-06-10] MEDS ORDERED: FUROSEMIDE 40 MG/4 ML INJECTABLE VIAL IVPUSH ONE (15:24)
[2021-06-10] MEDS ORDERED: ASPIRIN 81 MG CHEWABLE TABLETS PO ONE (15:24)
[2021-06-10] MEDS ORDERED: ASPIRIN 81 MG CHEWABLE TABLETS ONE (15:36)
[2021-06-10] MEDS ORDERED: FUROSEMIDE 40 MG/4 ML INJECTABLE VIAL ONE (15:39)
[2021-06-10 18:48] LABS: EPI CELLS 26 /uL (0-25.1); HYALINE CASTS 0 /uL (0-3.1); URINE APPEARANCE CLEAR; URINE BACTERIA 107 /uL (0-1359); URINE BILIRUBIN NEGATIVE (NEGATIVE); URINE COLOR YELLOW; URINE GLUCOSE (UA) NEGATIVE (NEGATIVE); URINE KETONE NEGATIVE (NEGATIVE); URINE LEUK ESTERASE NEGATIVE (NEGATIVE); URINE NITRITE NEGATIVE (NEGATIVE); URINE PROTEIN NEGATIVE (NEGATIVE); URINE RBC 30 /uL (0-23.9); URINE UROBILINOGEN 0.2 mg/dL (0.2-1.0); URINE WBC 2 /uL (0-25.8)
[2021-06-10] MEDS ORDERED: POLYETHYLENE GLYCOL (HEALTHYLAX) 3350 17 GM PACKET ONE (20:58)
[2021-06-10] MEDS ORDERED: APIXABAN 2.5 MG TABLET ONE (20:58)
[2021-06-10] MEDS ORDERED: busPIRone HCL 5 MG TABLET ONE (20:58)
[2021-06-10] MEDS ORDERED: ATORVASTATIN CA 80 MG TABLET (FP) ONE (20:58)
[2021-06-10] MEDS: POLYETHYLENE GLYCOL (HEALTHYLAX) 3350 17 GM PACKET PO SCH (21:18)
[2021-06-10] MEDS: busPIRone HCL 5 MG TABLET PO SCH (21:18)
[2021-06-10] MEDS: APIXABAN 2.5 MG TABLET PO SCH (21:18)
[2021-06-10] MEDS: ATORVASTATIN CA 80 MG TABLET (FP) PO SCH (21:18)
[2021-06-11 02:44] VITALS: BMI 25.8
[2021-06-11 06:59] LABS: BASO % 0.7 % (0-2.0); HEMOGLOBIN 11.9 GM/dL (10.7-15.3); LYMPH % 29.1 % (8-40); MCH 31.8 pg (25.7-33.7); MEAN CELL VOLUME 96.5 fl (80-96); MONO % 11.3 % (3.8-10.2); NEUT % 56.9 % (42.8-82.8); PLATELET COUNT 217 10^3/uL (134-434); RBC 3.73 M/mm3 (3.60-5.2); WHITE BLOOD COUNT 6.4 K/mm3 (4.0-10.0)
[2021-06-11 07:08] LABS: SARS-CoV-2 NAA Not Detected (Not Detected)
[2021-06-11 07:25] LABS: CALCIUM 9.3 mg/dL (8.5-10.1)
[2021-06-11 07:26] LABS: ALBUMIN 3.3 g/dl (3.4-5.0); MAGNESIUM 2.3 mg/dL (1.8-2.4)
[2021-06-11 07:30] LABS: CREATININE 0.7 mg/dL (0.55-1.3); TOT PROT 6.8 g/dl (6.4-8.2)
[2021-06-11 07:31] LABS: BILIRUBIN,TOTAL 1.3 mg/dL (0.2-1)
[2021-06-11] MEDS: FUROSEMIDE 40 MG/4 ML INJECTABLE VIAL IVPUSH SCH ×2 (07:41→14:43)
[2021-06-11] MEDS ORDERED: ALBUTEROL SO4 0.083% IH SOL 2.5 MG/3 ML VIAL.NEB. NEB PRN (09:16)
[2021-06-11] MEDS: PANTOPRAZOLE 40 MG TABLET PO SCH (10:35)
[2021-06-11] MEDS: busPIRone HCL 5 MG TABLET PO SCH ×2 (10:35→21:33)
[2021-06-11] MEDS: APIXABAN 2.5 MG TABLET PO SCH ×2 (10:35→21:33)
[2021-06-11] MEDS: POTASSIUM CHLORIDE TABS 20 MEQ TABLET.ER (FP) PO SCH ×2 (10:36→21:33)
[2021-06-11] MEDS: metoPROLOL SUCCINATE 25 MG TAB.SR.24H (FP) PO SCH (10:36)
[2021-06-11] MEDS: POLYETHYLENE GLYCOL (HEALTHYLAX) 3350 17 GM PACKET PO SCH ×2 (10:50→21:34)
[2021-06-11] MEDS: MIDODRINE HCL 2.5 MG TABLET PO SCH ×3 (11:30→18:14)
[2021-06-11] MEDS: ATORVASTATIN CA 80 MG TABLET (FP) PO SCH (21:33)
[2021-06-12] MEDS: FUROSEMIDE 40 MG/4 ML INJECTABLE VIAL IVPUSH SCH ×2 (05:56→13:19)
[2021-06-12 07:24] LABS: CALCIUM 8.9 mg/dL (8.5-10.1)
[2021-06-12 07:25] LABS: BLOOD UREA NITROGEN 24.4 mg/dL (7-18)
[2021-06-12 07:28] LABS: CREATININE 0.8 mg/dL (0.55-1.3)
[2021-06-12] MEDS: POTASSIUM CHLORIDE TABS 20 MEQ TABLET.ER (FP) PO SCH ×2 (10:07→21:26)
[2021-06-12] MEDS: PANTOPRAZOLE 40 MG TABLET PO SCH (10:07)
[2021-06-12] MEDS: busPIRone HCL 5 MG TABLET PO SCH ×2 (10:07→21:25)
[2021-06-12] MEDS: metoPROLOL SUCCINATE 25 MG TAB.SR.24H (FP) PO SCH (10:07)
[2021-06-12] MEDS: APIXABAN 2.5 MG TABLET PO SCH ×2 (10:07→21:25)
[2021-06-12] MEDS: POLYETHYLENE GLYCOL (HEALTHYLAX) 3350 17 GM PACKET PO SCH ×2 (10:07→21:25)
[2021-06-12] MEDS: MIDODRINE HCL 2.5 MG TABLET PO SCH ×3 (10:07→18:26)
[2021-06-12] MEDS: ATORVASTATIN CA 80 MG TABLET (FP) PO SCH (21:26)
[2021-06-13] MEDS: FUROSEMIDE 40 MG/4 ML INJECTABLE VIAL IVPUSH SCH (05:55)
[2021-06-13] MEDS: POTASSIUM CHLORIDE TABS 20 MEQ TABLET.ER (FP) PO SCH ×2 (09:43→21:35)
[2021-06-13] MEDS: MIDODRINE HCL 2.5 MG TABLET PO SCH ×3 (09:43→19:01)
[2021-06-13] MEDS: APIXABAN 2.5 MG TABLET PO SCH ×2 (09:44→21:35)
[2021-06-13] MEDS: PANTOPRAZOLE 40 MG TABLET PO SCH (09:44)
[2021-06-13] MEDS: metoPROLOL SUCCINATE 25 MG TAB.SR.24H (FP) PO SCH (09:44)
[2021-06-13] MEDS: busPIRone HCL 5 MG TABLET PO SCH ×2 (09:44→21:35)
[2021-06-13] MEDS: POLYETHYLENE GLYCOL (HEALTHYLAX) 3350 17 GM PACKET PO SCH ×2 (09:44→21:35)
[2021-06-13] MEDS: FUROSEMIDE 40 MG TABLET (FP) PO SCH (14:03)
[2021-06-13] MEDS: ATORVASTATIN CA 80 MG TABLET (FP) PO SCH (21:35)
[2021-06-14] MEDS: FUROSEMIDE 40 MG TABLET (FP) PO SCH ×2 (06:03→15:02)
[2021-06-14] MEDS: metoPROLOL SUCCINATE 25 MG TAB.SR.24H (FP) PO SCH (09:21)
[2021-06-14] MEDS: PANTOPRAZOLE 40 MG TABLET PO SCH (09:21)
[2021-06-14] MEDS: busPIRone HCL 5 MG TABLET PO SCH ×2 (09:21→22:04)
[2021-06-14] MEDS: POTASSIUM CHLORIDE TABS 20 MEQ TABLET.ER (FP) PO SCH ×2 (09:21→22:05)
[2021-06-14] MEDS: APIXABAN 2.5 MG TABLET PO SCH ×2 (09:21→22:05)
[2021-06-14] MEDS: POLYETHYLENE GLYCOL (HEALTHYLAX) 3350 17 GM PACKET PO SCH ×2 (09:21→22:05)
[2021-06-14] MEDS: MIDODRINE HCL 2.5 MG TABLET PO SCH ×3 (09:21→22:04)
[2021-06-14] MEDS: ATORVASTATIN CA 80 MG TABLET (FP) PO SCH (22:05)
[2021-06-15] MEDS: FUROSEMIDE 40 MG TABLET (FP) PO SCH ×2 (06:26→14:10)
[2021-06-15] MEDS: MIDODRINE HCL 2.5 MG TABLET PO SCH ×3 (10:00→18:32)
[2021-06-15] MEDS: POLYETHYLENE GLYCOL (HEALTHYLAX) 3350 17 GM PACKET PO SCH ×2 (10:01→21:18)
[2021-06-15] MEDS: metoPROLOL SUCCINATE 25 MG TAB.SR.24H (FP) PO SCH (10:01)
[2021-06-15] MEDS: PANTOPRAZOLE 40 MG TABLET PO SCH (10:01)
[2021-06-15] MEDS: POTASSIUM CHLORIDE TABS 20 MEQ TABLET.ER (FP) PO SCH ×2 (10:01→21:18)
[2021-06-15] MEDS: APIXABAN 2.5 MG TABLET PO SCH ×2 (10:01→21:18)
[2021-06-15] MEDS: busPIRone HCL 5 MG TABLET PO SCH ×2 (10:17→21:18)
[2021-06-15] MEDS: ATORVASTATIN CA 80 MG TABLET (FP) PO SCH (21:18)
[2021-06-16] MEDS: FUROSEMIDE 40 MG TABLET (FP) PO SCH ×2 (05:30→15:18)
[2021-06-16] MEDS: busPIRone HCL 5 MG TABLET PO SCH (09:58)
[2021-06-16] MEDS: POLYETHYLENE GLYCOL (HEALTHYLAX) 3350 17 GM PACKET PO SCH (09:58)
[2021-06-16] MEDS: PANTOPRAZOLE 40 MG TABLET PO SCH (09:58)
[2021-06-16] MEDS: POTASSIUM CHLORIDE TABS 20 MEQ TABLET.ER (FP) PO SCH (09:58)
[2021-06-16] MEDS: metoPROLOL SUCCINATE 25 MG TAB.SR.24H (FP) PO SCH (09:58)
[2021-06-16] MEDS: MIDODRINE HCL 2.5 MG TABLET PO SCH ×2 (09:59→15:18)
[2021-06-16] MEDS: APIXABAN 2.5 MG TABLET PO SCH (09:59)
[2021-06-16 14:53] VITALS: BP 130/64; PULSE 81; TEMP 97.5
== END 2021-06-16 17:26 | disposition home or self-care (01) | DRG 291 ==
LOC: JER 12:06 → JERBED 15:25 → J4W 06-11 00:36
PROVIDERS: ADMIT Family Medicine; ATTEND Family Medicine
DX: I11.0 Hypertensive heart disease with heart failure (principal); I50.33 Acute on chronic diastolic (congestive) heart failure; J98.11 Atelectasis; I48.91 Unspecified atrial fibrillation; Z79.01 Long term (current) use of anticoagulants; E78.5 Hyperlipidemia, unspecified; Z86.73 Personal history of transient ischemic attack (TIA), and cerebral infarction without residual deficits; I95.1 Orthostatic hypotension; G20 Parkinson's disease
CPT/HCPCS: 36415; 71045-TC-FY; 71046-TC-FY; 71250-TC; 80048; 80053; 81003; 83735; 83880; 84443; 84484; 85025; 85610; 85730; 87040; 87086; 87186; 87804; 93005; 93010; 94010; 94761; 97116-GP; 97162-GP; 99285-25; C9803-CS; U0003; U0005

== ENCOUNTER 2021-06-19 12:52 | Observation (INO) | payer OTHER ==
[2021-06-19 12:56] VITALS: BMI 25.8
[2021-06-19 13:59] LABS: BASO % 0.6 % (0-2.0); EOS % 2.5 % (0-4.5); HEMATOCRIT 40.4 % (32.4-45.2); HEMOGLOBIN 13.2 GM/dL (10.7-15.3); LYMPH % 32.1 % (8-40); MCH 31.4 pg (25.7-33.7); MCHC 32.6 g/dl (32.0-36.0); MEAN CELL VOLUME 96.1 fl (80-96); MEAN PLT VOLUME 9.6 fl (7.5-11.1); MONO % 16.7 % (3.8-10.2); NEUT % 48.1 % (42.8-82.8); PLATELET COUNT 208 10^3/uL (134-434); RBC 4.21 M/mm3 (3.60-5.2); RDW 16.4 % (11.6-15.6); WHITE BLOOD COUNT 7.1 K/mm3 (4.0-10.0)
[2021-06-19 14:05] LABS: INR 1.38 (0.83-1.09); PROTHROMBIN TIME (PATIENT) 15.9 SEC (9.7-13.0)
[2021-06-19 14:08] LABS: ACTIVATED PTT 29.8 SECONDS (25.2-36.5)
[2021-06-19 14:19] LABS: CALCIUM 10.1 mg/dL (8.5-10.1)
[2021-06-19 14:20] LABS: ALBUMIN 3.5 g/dl (3.4-5.0); BLOOD UREA NITROGEN 48.6 mg/dL (7-18)
[2021-06-19 14:24] LABS: CREATININE 1.8 mg/dL (0.55-1.3); TOT PROT 7.8 g/dl (6.4-8.2)
[2021-06-19 14:27] LABS: N-TERMINAL BNP 3068.8 pg/ml (5-450)
[2021-06-19] MEDS ORDERED: SODIUM CHLORIDE 0.9% 500 ML INFUS.BAG IV ONE (15:07)
[2021-06-19] MEDS ORDERED: ALBUTEROL SO4 2.5/IPRATROPIUM 0.5 INH SOL 3 ML VIAL.NEB. NEB ONE ×2 (15:07→16:06)
[2021-06-19] MEDS ORDERED: ACETAMINOPHEN 325 MG TABLET (FP) PO PRN (16:22)
[2021-06-19] MEDS ORDERED: MIDODRINE HCL 2.5 MG TABLET PO SCH (18:00)
[2021-06-19] MEDS ORDERED: busPIRone HCL 5 MG TABLET ONE (22:34)
[2021-06-19] MEDS ORDERED: GABAPENTIN 100 MG CAPSULE ONE (22:35)
[2021-06-19] MEDS ORDERED: APIXABAN 2.5 MG TABLET ONE (22:35)
[2021-06-19] MEDS: busPIRone HCL 5 MG TABLET PO SCH (22:36)
[2021-06-19] MEDS: APIXABAN 2.5 MG TABLET PO SCH (22:36)
[2021-06-19] MEDS: GABAPENTIN 100 MG CAPSULE PO SCH (22:37)
[2021-06-19] MEDS: POLYETHYLENE GLYCOL (HEALTHYLAX) 3350 17 GM PACKET PO SCH (22:37)
[2021-06-20 07:09] LABS: BASO % 0.7 % (0-2.0); EOS % 3.3 % (0-4.5); HEMATOCRIT 35.9 % (32.4-45.2); HEMOGLOBIN 11.8 GM/dL (10.7-15.3); LYMPH % 25.9 % (8-40); MCH 31.8 pg (25.7-33.7); MCHC 32.9 g/dl (32.0-36.0); MEAN CELL VOLUME 96.7 fl (80-96); MEAN PLT VOLUME 9.8 fl (7.5-11.1); MONO % 19.8 % (3.8-10.2); NEUT % 50.3 % (42.8-82.8); PLATELET COUNT 190 10^3/uL (134-434); RBC 3.71 M/mm3 (3.60-5.2); RDW 16.4 % (11.6-15.6)
[2021-06-20 07:19] LABS: BLOOD UREA NITROGEN 46.5 mg/dL (7-18); CALCIUM 8.8 mg/dL (8.5-10.1)
[2021-06-20 07:22] LABS: CREATININE 1.4 mg/dL (0.55-1.3)
[2021-06-20 07:24] LABS: BILIRUBIN,TOTAL 1.1 mg/dL (0.2-1); TOT PROT 6.6 g/dl (6.4-8.2)
[2021-06-20] MEDS: POLYETHYLENE GLYCOL (HEALTHYLAX) 3350 17 GM PACKET PO SCH ×2 (10:29→21:50)
[2021-06-20] MEDS: APIXABAN 2.5 MG TABLET PO SCH ×2 (10:29→21:50)
[2021-06-20] MEDS: PANTOPRAZOLE 40 MG TABLET PO SCH (10:29)
[2021-06-20] MEDS: busPIRone HCL 5 MG TABLET PO SCH ×2 (10:30→21:49)
[2021-06-20] MEDS: MIDODRINE HCL 5 MG, MIDODRINE HCL 2.5 MG PO SCH ×3 (10:30→17:58)
[2021-06-20] MEDS: metoPROLOL SUCCINATE 25 MG TAB.SR.24H (FP) PO SCH (12:19)
[2021-06-20] MEDS ORDERED: ALBUTEROL SO4 HFA INHALER IH PRN (17:11)
[2021-06-20 18:07] LABS: SARS-CoV-2 NAA Not Detected (Not Detected)
[2021-06-20] MEDS ORDERED: FUROSEMIDE 40 MG/4 ML INJECTABLE VIAL IVPUSH ONE (18:55)
[2021-06-20] MEDS: ALBUTEROL SO4 0.083% IH SOL 2.5 MG/3 ML VIAL.NEB. NEB PRN (20:39)
[2021-06-20] MEDS: OSELTAMIVIR PHOSPHATE 75 MG CAPSULE PO SCH (21:49)
[2021-06-20] MEDS: GABAPENTIN 100 MG CAPSULE PO SCH (21:50)
[2021-06-21] MEDS: APIXABAN 2.5 MG TABLET PO SCH ×2 (10:12→21:43)
[2021-06-21] MEDS: POLYETHYLENE GLYCOL (HEALTHYLAX) 3350 17 GM PACKET PO SCH ×2 (10:12→21:43)
[2021-06-21] MEDS: PANTOPRAZOLE 40 MG TABLET PO SCH (10:12)
[2021-06-21] MEDS: busPIRone HCL 5 MG TABLET PO SCH ×2 (10:13→21:45)
[2021-06-21] MEDS: OSELTAMIVIR PHOSPHATE 75 MG CAPSULE PO SCH ×2 (10:13→21:45)
[2021-06-21] MEDS: MIDODRINE HCL 5 MG, MIDODRINE HCL 2.5 MG PO SCH ×3 (10:13→17:48)
[2021-06-21] MEDS: metoPROLOL SUCCINATE 25 MG TAB.SR.24H (FP) PO SCH (12:00)
[2021-06-21] MEDS: ALBUTEROL SO4 0.083% IH SOL 2.5 MG/3 ML VIAL.NEB. NEB PRN (15:50)
[2021-06-21] MEDS: NYSTATIN/TRIAMCINOLONE TOPICAL CREAM 15 GM TUBE TP SCH (21:43)
[2021-06-21] MEDS: GABAPENTIN 100 MG CAPSULE PO SCH (21:43)
[2021-06-21] MEDS: DEXTROMETHORPHAN/PROMETHAZINE 15 MG/6.25 MG/5 ML SYRUP PO PRN (21:46)
[2021-06-22 06:52] LABS: HEMATOCRIT 38.7 % (32.4-45.2); HEMOGLOBIN 12.8 GM/dL (10.7-15.3); MCH 32.2 pg (25.7-33.7); MCHC 33.2 g/dl (32.0-36.0); MEAN CELL VOLUME 97.1 fl (80-96); MEAN PLT VOLUME 9.9 fl (7.5-11.1); PLATELET COUNT 168 10^3/uL (134-434); RBC 3.99 M/mm3 (3.60-5.2); RDW 16.3 % (11.6-15.6); WHITE BLOOD COUNT 4.9 K/mm3 (4.0-10.0)
[2021-06-22 07:32] LABS: ALBUMIN 3.3 g/dl (3.4-5.0); BILIRUBIN,TOTAL 1.2 mg/dL (0.2-1); BLOOD UREA NITROGEN 38.8 mg/dL (7-18); CREATININE 1.3 mg/dL (0.55-1.3); MAGNESIUM 1.9 mg/dL (1.8-2.4); TOT PROT 7.4 g/dl (6.4-8.2)
[2021-06-22] MEDS: PANTOPRAZOLE 40 MG TABLET PO SCH (09:15)
[2021-06-22] MEDS: APIXABAN 2.5 MG TABLET PO SCH ×2 (09:15→21:06)
[2021-06-22] MEDS: POLYETHYLENE GLYCOL (HEALTHYLAX) 3350 17 GM PACKET PO SCH ×2 (09:16→21:06)
[2021-06-22] MEDS: DEXTROMETHORPHAN/PROMETHAZINE 15 MG/6.25 MG/5 ML SYRUP PO PRN (09:16)
[2021-06-22] MEDS: FUROSEMIDE 40 MG/5 ML UNIT-DOSE CUP PO SCH (09:17)
[2021-06-22] MEDS: MIDODRINE HCL 5 MG, MIDODRINE HCL 2.5 MG PO SCH ×3 (09:17→17:04)
[2021-06-22] MEDS: busPIRone HCL 5 MG TABLET PO SCH ×2 (09:18→21:06)
[2021-06-22] MEDS: OSELTAMIVIR PHOSPHATE 75 MG CAPSULE PO SCH ×2 (09:18→21:06)
[2021-06-22] MEDS: NYSTATIN/TRIAMCINOLONE TOPICAL CREAM 15 GM TUBE TP SCH ×2 (10:01→21:06)
[2021-06-22] MEDS: ALBUTEROL SO4 0.083% IH SOL 2.5 MG/3 ML VIAL.NEB. NEB PRN (11:40)
[2021-06-22] MEDS: metoPROLOL SUCCINATE 25 MG TAB.SR.24H (FP) PO SCH (11:41)
[2021-06-22] MEDS ORDERED: KCL 10 MEQ IVPB 10 MEQ/100 ML INFUS.BAG IVPB SCH (14:30)
[2021-06-22] MEDS ORDERED: DEXTROSE 5%-WATER - 1,000 ML with POTASSIUM CHLORIDE 20 MEQ IV SCH (15:00)
[2021-06-22] MEDS: GABAPENTIN 100 MG CAPSULE PO SCH (21:06)
[2021-06-23 09:20] LABS: CALCIUM 9.1 mg/dL (8.5-10.1)
[2021-06-23 09:21] LABS: ALBUMIN 3.2 g/dl (3.4-5.0); BLOOD UREA NITROGEN 32.9 mg/dL (7-18)
[2021-06-23 09:25] LABS: TOT PROT 7.1 g/dl (6.4-8.2)
[2021-06-23 09:26] LABS: BILIRUBIN,TOTAL 1.2 mg/dL (0.2-1)
[2021-06-23 09:34] LABS: HEMATOCRIT 37.9 % (32.4-45.2); HEMOGLOBIN 12.6 GM/dL (10.7-15.3); MCH 32.2 pg (25.7-33.7); MCHC 33.3 g/dl (32.0-36.0); MEAN CELL VOLUME 96.6 fl (80-96); MEAN PLT VOLUME 9.9 fl (7.5-11.1); PLATELET COUNT 166 10^3/uL (134-434); RBC 3.92 M/mm3 (3.60-5.2); RDW 16.2 % (11.6-15.6); WHITE BLOOD COUNT 6.6 K/mm3 (4.0-10.0)
[2021-06-23] MEDS: POLYETHYLENE GLYCOL (HEALTHYLAX) 3350 17 GM PACKET PO SCH ×3 (09:53→22:08)
[2021-06-23] MEDS: MIDODRINE HCL 5 MG, MIDODRINE HCL 2.5 MG PO SCH ×3 (09:54→17:14)
[2021-06-23] MEDS: busPIRone HCL 5 MG TABLET PO SCH ×2 (09:54→22:08)
[2021-06-23] MEDS: APIXABAN 2.5 MG TABLET PO SCH ×2 (09:55→22:07)
[2021-06-23] MEDS: FUROSEMIDE 40 MG/5 ML UNIT-DOSE CUP PO SCH (09:55)
[2021-06-23] MEDS: NYSTATIN/TRIAMCINOLONE TOPICAL CREAM 15 GM TUBE TP SCH ×2 (09:55→22:08)
[2021-06-23] MEDS: PANTOPRAZOLE 40 MG TABLET PO SCH (09:55)
[2021-06-23] MEDS: OSELTAMIVIR PHOSPHATE 75 MG CAPSULE PO SCH ×2 (09:56→22:08)
[2021-06-23] MEDS: metoPROLOL SUCCINATE 25 MG TAB.SR.24H (FP) PO SCH (11:33)
[2021-06-23] MEDS: GABAPENTIN 100 MG CAPSULE PO SCH (22:07)
[2021-06-24 01:47] VITALS: TEMP 98
[2021-06-24] MEDS ORDERED: POTASSIUM CHLORIDE TABS 20 MEQ TABLET.ER (FP) PO ONE (09:16)
[2021-06-24 09:19] LABS: ALBUMIN 2.6 g/dl (3.4-5.0); CALCIUM 8.7 mg/dL (8.5-10.1)
[2021-06-24 09:22] LABS: CREATININE 0.9 mg/dL (0.55-1.3)
[2021-06-24 09:24] LABS: BILIRUBIN,TOTAL 1.2 mg/dL (0.2-1); TOT PROT 6.4 g/dl (6.4-8.2)
[2021-06-24] MEDS: busPIRone HCL 5 MG TABLET PO SCH (10:19)
[2021-06-24] MEDS: MIDODRINE HCL 5 MG, MIDODRINE HCL 2.5 MG PO SCH (10:19)
[2021-06-24] MEDS: OSELTAMIVIR PHOSPHATE 75 MG CAPSULE PO SCH (10:19)
[2021-06-24] MEDS: FUROSEMIDE 40 MG/5 ML UNIT-DOSE CUP PO SCH (10:20)
[2021-06-24] MEDS: APIXABAN 2.5 MG TABLET PO SCH (10:21)
[2021-06-24] MEDS: POLYETHYLENE GLYCOL (HEALTHYLAX) 3350 17 GM PACKET PO SCH (10:21)
[2021-06-24] MEDS: PANTOPRAZOLE 40 MG TABLET PO SCH (10:22)
[2021-06-24 10:50] VITALS: BP 128/80; PULSE 87
[2021-06-24] MEDS: metoPROLOL SUCCINATE 25 MG TAB.SR.24H (FP) PO SCH (12:24)
[2021-06-24] MEDS: NYSTATIN/TRIAMCINOLONE TOPICAL CREAM 15 GM TUBE TP SCH (13:43)
== END 2021-06-24 15:48 | disposition home health service (06) ==
LOC: JER 12:52 → JERBED 15:07 → J4S 22:56
PROVIDERS: ADMIT Family Medicine; ATTEND Family Medicine
PROC: 3E0F7GC Introduction of Other Therapeutic Substance into Respiratory Tract, Via Natural or Artificial Opening (ICD-10-PCS; principal; 2021-06-19)
PROC: 3E033GC Introduction of Other Therapeutic Substance into Peripheral Vein, Percutaneous Approach (ICD-10-PCS; 2021-06-19)
PROC: 3E0337Z Introduction of Electrolytic and Water Balance Substance into Peripheral Vein, Percutaneous Approach (ICD-10-PCS; 2021-06-19)
DX: I25.10 Atherosclerotic heart disease of native coronary artery without angina pectoris (principal); I11.0 Hypertensive heart disease with heart failure; I50.9 Heart failure, unspecified; N17.9 Acute kidney failure, unspecified; I48.91 Unspecified atrial fibrillation; I34.0 Nonrheumatic mitral (valve) insufficiency; F41.9 Anxiety disorder, unspecified; J44.9 Chronic obstructive pulmonary disease, unspecified; R06.02 Shortness of breath; J10.1 Influenza due to other identified influenza virus with other respiratory manifestations; Z79.01 Long term (current) use of anticoagulants; Z86.73 Personal history of transient ischemic attack (TIA), and cerebral infarction without residual deficits; R11.0 Nausea; R06.2 Wheezing; R79.89 Other specified abnormal findings of blood chemistry
CPT/HCPCS: 36415; 71045-TC-FY; 80053; 83735; 83880; 84484; 85025; 85027; 85610; 85730; 87804; 93005; 93010; 94640; 94761; 96365; 96367; 96375; 97162-GP; 99285-25; C9803-CS; G0378; U0003; U0005

== ENCOUNTER 2022-08-22 16:07 | Emergency (ER) | payer OTHER ==
[2022-08-22 16:30] VITALS: BP 123/65; PULSE 73; RESP 19; TEMP 98; BMI 23.8
[2022-08-22] MEDS ORDERED: ACETAMINOPHEN 325 MG TABLET (FP) PO ONE (17:24)
[2022-08-22] MEDS ORDERED: LIDOCAINE 5% TOPICAL PATCH TP ONE (17:24)
[2022-08-22] MEDS ORDERED: APIXABAN 2.5 MG TABLET PO ONE (17:39)
[2022-08-22] MEDS ORDERED: METOPROLOL TARTRATE 25 MG TABLET (FP) PO ONE (17:40)
[2022-08-22] MEDS ORDERED: MIDODRINE HCL 2.5 MG TABLET PO ONE ×2 (17:41→18:28)
[2022-08-22] MEDS ORDERED: FUROSEMIDE 20 MG TABLET (FP) PO ONE (17:41)
[2022-08-22] MEDS ORDERED: METOPROLOL TARTRATE 25 MG TABLET (FP) ONE (17:51)
[2022-08-22] MEDS ORDERED: ACETAMINOPHEN 325 MG TABLET (FP) ONE (17:52)
[2022-08-22] MEDS ORDERED: FUROSEMIDE 20 MG TABLET (FP) ONE (17:52)
[2022-08-22] MEDS ORDERED: APIXABAN 2.5 MG TABLET ONE (17:52)
[2022-08-22] MEDS ORDERED: LIDOCAINE 5% TOPICAL PATCH ONE (17:52)
[2022-08-23] MEDS ORDERED: MIDODRINE HCL 2.5 MG TABLET PO ONE (18:28)
[2022-08-23] MEDS ORDERED: MIDODRINE HCL 5 MG TABLET PO ONE (19:49)
== END 2022-08-23 00:03 | disposition home or self-care (01) ==
LOC: JER 16:07
DX: M54.50 Low back pain, unspecified (principal); I48.91 Unspecified atrial fibrillation; W01.0XXA Fall on same level from slipping, tripping and stumbling without subsequent striking against object, initial encounter
CPT/HCPCS: 72131-TC; 93005; 93010; 99284-25